=== PATIENT | male | born 1940 | race Caucasian/White ===

== ENCOUNTER 2018-05-13 11:43 | Day surgery (SDC) | payer MEDICARE, OTHER, SELFPAY ==
--- NOTE | 2018-05-12 23:10 | CASEMGMT ---
Social Work Outpatient Surgery Summary: Received call from patient's daughter and reported LUIS ANGELDominick ([phone]) requesting a call back for assistance with aftercare needs for patient. Spoke with daughter via phone. Per daughter patient broke an ankle, and needs to have surgical repair. Daughter reports since injury and waiting for surgery, the patient has not been listening properly at home, up walking and driving. Daughter reports patient normally lives alone, is independent in self care, and active. Daughter reports patient has been a bit more confused lately, though never diagnosed with dementia. Daughter reports patient is to be nonweightbearing after surgery, and based on patient's inability to adhere to restrictions prior to surgery, the daughter expresses concerns about patient being at home alone after surgery. Daughter reports she and patient's other daughter both have to work, are unable to be at home with patient 24 hours a day. Daughter reports to have the patient's best interest at heart and has been trying to be proactive for this patient. Daughter reports has made some calls to local SNF's, since 24 hour care is provided, and would prefer to go to [facility] if SNF is needed. Daughter indicating an openness to options available for this patient. Spoke with Amparo in the rehab department at [facility], reviewed call with daughter and need for some level therapy after surgery, patient non weightbearing status and that patient has reportedly been independent at home prior to injury and even after injury has wanted to continue as before. Received call back from Amparo and patient could be accepted straight from PACU to rehab unit. Spoke with daughter again. Reviewed alternative option of acute rehab level of care versus SNF level of care after surgery. Daughter reports patient is a social person, likes to be active, so maybe the three hours of therapy a day would be a good thing for patient. Daughter did have some questions about the rehab unit, so referred the daughter to Amparo before final decision made about which level of care. Daughter also plans to talk with patient about patient's wishes, including patient in decision making. Received call from Amparo who reports the daughter was able to call and get questions answered. Patient and daughter deciding to go with rehab level of care for now. Updated Sherri Vogel in PACU of plan for this patient. Informed of what is needed for discharge. Called [facility] and left message for surgical oncologist of plan made today (per the daughters the physician office had told the daughter to contact hospital social work about making a plan after surgery). Left message as to what the doctor will need to write for discharge to rehab. Plan: Acute rehab after surgery for therapy in helping patient transition to nonweightbearing safely; promote independence as prior to injury. -JAVIER Pulliam, PATTERN CHANGER
[2018-05-13 12:15] VITALS: BP 150/75; PULSE 73; RESP 18; TEMP 36.9; O2SAT 100; BMI 27.1
[2018-05-13 12:17] LABS: Hematocrit 42.6 % (40-54); Hemoglobin 14.3 g/dl (13.0-16.5); Mean Corp Hgb Conc 33.6 g/gl (32-36); Mean Corpuscular Hgb 30.2 pg (27.0-32.0); Mean Corpuscular Volume 89.9 fL (80-94); Mean Platelet Vol. 10.6 fl (6.2-12.0); Platelet Count 199 K/mm3 (150-450); RBC Distribution Width CV 12.3 % (11.6-14.6); Red Blood Count 4.74 M/mm3 (4.6-6.2); White Blood Count 7.6 K/mm3 (4.4-11.0)
[2018-05-13 12:18] LABS: Scan Indicated on CBC? Y/N NO
[2018-05-13 12:41] LABS: Bedside Glucose 133 mg/dL (70-110)
[2018-05-13 12:55] LABS: Anion Gap 8 (5-15); BUN 16 mg/dL (7-18); BUN/Creat Ratio 16.6 RATIO (10-20); Calcium,Total 8.5 mg/dL (8.5-10.1); Chloride 105 mmol/L (98-107); Creatinine, Serum 0.96 mg/dL (0.70-1.30); EST Glomerular Filtration Rate 80 mL/min (>60); Est Glom Filt Rate - Afr Amer 97 mL/min (>60); Estimated Creatinine Clearance 60.25 ml/min; Glucose 131 mg/dL (74-106); Potassium 4.3 mmol/L (3.5-5.1); Sodium Level 141 mmol/L (136-145); Thyroid Stim Hormone (TSH) 1.92 uIU/mL (0.358-3.74)
[2018-05-13] MEDS: Cefazolin 2 GM in 0.9% Normal Saline 100 ML IV (13:35)
--- NOTE | 2018-05-13 14:35 | RAD_ITS ---
STUDY: X-RAY - RIGHT ANKLE REASON FOR EXAM: Male, 77 years old. ORIF right ankle TECHNIQUE: 3 view(s) of the ankle in multiple obliquities obtained intraoperatively are presented for interpretation. COMPARISON: None. FINDINGS: Plate and screw fixation of the distal fibular fracture in excellent anatomic alignment. Surgical construct intact. Normal distal tibia. Normal ankle joint. RAD/Ankle 2 Views IMPRESSION: Excellent anatomic alignment. Correlate with operative report. Electronically Signed: Eduard Becker, at 15:35 EST Tel , Service support ,
[2018-05-13 16:05] VITALS: BP 150/75; BP 151/83; PULSE 83; RESP 16; TEMP 36.1; O2SAT 93
--- NOTE | 2018-05-13 16:12 | OP.PN_ITS ---
Immediate Post-Op Note Date of Procedure: 05/13/18 Primary Surgeon/Physician: Cornelia Salazar DPM launching pad mechanic: Anthony Nielsen Pre-Operative Diagnosis: R ankle distal fibula fracture Post-Operative Diagnosis: same Surgery/Procedure Performed:: ORIF R distal fibula Description of Surgical Findings:: see dictation Estimated Blood Loss: minimal Specimen's removed: none Drains: none Type of Anesthesia:: General/Regional - Admit VTE Documentation VTE Present on Admission: No VTE Mechan Device Prophylaxis: SCD's, Knee High KATRINA Hose VTE Pharm Prophylaxis ordered?: Yes
[2018-05-13 16:15] VITALS: BP 140/82; BP 150/75; PULSE 79; RESP 16; O2SAT 93
--- NOTE | 2018-05-13 16:25 | RAD_ITS ---
STUDY: X-RAY - RIGHT ANKLE REASON FOR EXAM: Male, 77 years old. Postop. TECHNIQUE: 4 view(s) of the ankle. COMPARISON: Right ankle, May 13, 2018. FINDINGS: Normal visualized distal tibia. Again seen is metallic plate and screws along the lateral aspect of the fibula. The fracture is in normal alignment. Normal tibiotalar articulation and ankle mortise. Normal visualized talus and calcaneus. The visualized subtalar, talonavicular, calcaneocuboid and tarsal articulations are normal. Minimal soft tissue swelling. A semiopaque splint is seen along the posterior leg and plantar aspect of the foot. RAD/Ankle min 3 Views IMPRESSION: Status post internal fixation of a distal fibular fracture. Electronically Signed: Deepak Martinez DO at 16:48 EST Tel [phone], Service support ,
[2018-05-13 16:30] VITALS: BP 139/68; BP 150/75; PULSE 80; RESP 16; O2SAT 95
[2018-05-13 16:30] LABS: Bedside Glucose 132 mg/dL (70-110)
[2018-05-13 16:36] VITALS: BP 136/77; BP 150/75; PULSE 76; RESP 16; TEMP 36.2; O2SAT 93
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
== END 2018-05-13 17:00 ==
LOC: SDC 11:47 → AC 11:48
PROVIDERS: Anesthesiology; Family Provider Nurse Practitioner Family; PCP Nurse Practitioner Family; Referring Provider Podiatrist Foot & Ankle Surgery; Visit Provider Podiatrist Foot & Ankle Surgery
PROC: (CPT 27792; principal; 2018-05-13 14:15)
DX: S82.831A Other fracture of upper and lower end of right fibula, initial encounter for closed fracture (principal); V00.141A Fall from scooter (nonmotorized), initial encounter; Y93.I9 Activity, other involving external motion; I11.9 Hypertensive heart disease without heart failure; E11.9 Type 2 diabetes mellitus without complications; E03.9 Hypothyroidism, unspecified; Z95.5 Presence of coronary angioplasty implant and graft; Z79.84 Long term (current) use of oral hypoglycemic drugs; Z79.82 Long term (current) use of aspirin; Z79.899 Other long term (current) drug therapy
CPT/HCPCS: 27792; 64445; 36415; 73600; 73610; 76000; 80048; 82962; 84443; 85027; C1713; J7120

== ENCOUNTER 2018-05-13 17:00 | Inpatient (IN) | payer MEDICARE, OTHER, SELFPAY ==
[2018-05-13 17:00] VITALS: BP 147/81; PULSE 80; RESP 14; TEMP 36.8; O2SAT 89
[2018-05-13 17:15] VITALS: O2SAT 94
--- NOTE | 2018-05-13 17:20 | NURSING ---
Daughter at bedside and patient resting comfortably in bed, circulation check wnl to right foot and toes moveable and pink.
[2018-05-13 17:31] VITALS: BMI 25.5
[2018-05-13 17:45] LABS: Bedside Glucose 140 mg/dL (70-110)
[2018-05-13 18:00] VITALS: BP 156/90; PULSE 73; RESP 18; O2SAT 95
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
--- NOTE | 2018-05-13 19:34 | NURSING ---
Patient and daughter aware that he is a fall risk and must ask for staff assist and verbalized understanding to call rea use.
[2018-05-13 20:00] VITALS: BP 148/87; PULSE 73; RESP 18; TEMP 36.9; O2SAT 93
[2018-05-13] MEDS: oxyCODONE 5 MG Tablet PO (20:44)
[2018-05-13] MEDS: Senna/Docusate Sodium 1 Tablet 2 TABLET PO (20:46)
[2018-05-13] MEDS: Atorvastatin Calcium 20 MG Tablet PO (21:11)
[2018-05-13 21:31] LABS: Bedside Glucose 151 mg/dL (70-110)
[2018-05-13] MEDS: Carvedilol 6.25 MG Tablet PO (22:03)
[2018-05-14] VITALS (7 sets, daily range): BP systolic 138–154; BP diastolic 65–86; PULSE 70–95; RESP 16–18; TEMP 36.7–37.3; O2SAT 92–95
[2018-05-14] MEDS: oxyCODONE 5 MG Tablet PO ×3 (02:44→21:11)
[2018-05-14 06:01] LABS: Absolute Lymphocyte Count 0.83 X10^3/ul (0.83-4.51); Basophil# 0.01 X10^3/uL; Basophil% 0.1 % (0-1); Eosinophil# 0.02 X10^3/uL; Eosinophils% 0.2 % (0-5); Hematocrit 39.7 % (40-54); Hemoglobin 13.6 g/dl (13.0-16.5); Lymphocyte # 0.83 X10^3/ul (4.0); Lymphocyte % 7.7 % (19-41); Mean Corp Hgb Conc 34.3 g/gl (32-36); Mean Corpuscular Hgb 30.2 pg (27.0-32.0); Mean Corpuscular Volume 88.2 fL (80-94); Mean Platelet Vol. 10.8 fl (6.2-12.0); Monocyte% 8.3 % (0-10); Neutrophil # 9.02 X10^3/uL (2.7-7.7); Neutrophil % 83.5 % (47-70); Platelet Count 186 K/mm3 (150-450); RBC Distribution Width SD 38.4 fl (35.1-43.9); White Blood Count 10.8 K/mm3 (4.4-11.0)
[2018-05-14 06:08] LABS: POSITIVE COUNT NO; POSITIVE DIFFERENTIAL NO; POSITIVE MORPHOLOGY NO
[2018-05-14 06:39] LABS: AST(SGOT) 17 U/L (15-37); Alanine Aminotransfer ALT/SGPT 17 U/L (16-61); Albumin, Serum 2.9 g/dL (3.2-5.0); Alkaline Phosphatase 69 U/L (45-117); Anion Gap 10 (5-15); BUN 13 mg/dL (7-18); BUN/Creat Ratio 16.9 RATIO (10-20); Calcium,Total 8.2 mg/dL (8.5-10.1); Chloride 101 mmol/L (98-107); Creatinine, Serum 0.77 mg/dL (0.70-1.30); EST Glomerular Filtration Rate 104 mL/min (>60); Est Glom Filt Rate - Afr Amer 126 mL/min (>60); Estimated Creatinine Clearance 59.85 ml/min; Glucose 175 mg/dL (74-106); Potassium 4.1 mmol/L (3.5-5.1); Protein, Total 5.9 g/dL (6.4-8.2); Sodium Level 136 mmol/L (136-145)
[2018-05-14] MEDS: Levothyroxine 75 MCG Tablet PO (06:43)
[2018-05-14] MEDS: Enoxaparin 40 MG/0.4 ML Syringe SC (06:43)
[2018-05-14 07:11] LABS: Bedside Glucose 155 mg/dL (70-110)
[2018-05-14] MEDS: Lisinopril 2.5 MG Tablet PO (07:44)
[2018-05-14] MEDS: Calcium Carb/Vitamin D 1 TABLET Tablet PO ×2 (07:45→17:24)
[2018-05-14] MEDS: Aspirin 81 MG TAB.CHEW PO (07:45)
[2018-05-14] MEDS: Carvedilol 6.25 MG Tablet PO ×2 (07:45→21:18)
[2018-05-14] MEDS: Senna/Docusate Sodium 1 Tablet 2 TABLET PO ×2 (07:45→21:18)
[2018-05-14] MEDS: Cyanocobalamin 500 MCG Tablet 1000 MCG PO (07:45)
[2018-05-14 12:05] LABS: Bedside Glucose 184 mg/dL (70-110)
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
--- NOTE | 2018-05-14 13:43 | PCM.RU.PYE ---
Admission Information Status Changes from Prescreening?: No changes Identified Actual Problem List:: Falls, Skin Intergrity, Pain, ALteration in Cmfrt, Mobility Impaired, Diabetes, Hyperglycemia, BP, Hypertension, Ineffect.D/C Plan r/t Psy Potential Problem List:: DVT, Bleeding, Infection, UTI, Aspiration, Falls, Skin Integrity, Depression Risk of Complications DVT: LMWH, KATRINA Hose, Sequential Compression Device Bleeding: Monitor Lab Values, Nursing to Teach Precautions for anti-coagulation therapy., Wound, if applicable, to be assessed every shift., Stroke patients assessed for lethargy or change in status. Infection: Clinical Staff to Monitor for S/S of infection:, S/S of infection include fever, redness, warmth, etc. Urinary Tract Infection: Monitor for frequency, burning, discomfort, or incontinence., Nursing will obtain urine sample for urinalysis and C&S when ordered. Aspiration: Clinical staff will monitor for coughing, drooling, congestion., Speech will evaluate swallowing and dsyphasia., Nursing will monitor patient swallowing during meals. Falls: Patient will be evaluated for Fall Precautions, Patient will be placed on Fall Precautions as indicated per protocol. Skin Breakdown: Nursing will assess skin daily using assessment tool., Nursing will place on Skin Breakdown Precautions as indicated. Pain: Clinical staff will assess patient's pain level per protocol., Medications will be given, if needed, and the pain level reassessed., Other methods: Massage, distraction, decrease stimulus, etc. used PRN. Plan of Care Patient requires physician specializing in physical medicine and rehab oversight to provide close medical supervision of rehab issues including: Pain Management, Sleep Problems, Bowel and Bladder, Medical and co-morbidity Management, DVT prophylaxis, Rehabilitation Leadership, Coordination of treatment team Patient needs Physical Therapy: For a minimum of 1 hour, At least 5 out of 7 days Patient needs Physical Therapy to improve:: Mobility, Mobility, Mobility, Strengthening, Transfers, Stretching, ROM, Endurance, Stairs, Gait, Balance Patient needs Occupational Therapy: For a minimum of 1 hour, At least 5 out of 7 days Patient needs Occupational Therapy to improve ADL's incl.: Eating, Grooming, Bathing, Dressing, Toileting, Toilet transfers, Community Reintegration, Higher functioning activities, Household tasks, Adaptive Equipment, Splinting, Other activities as determined Patient requires 24/ Rehabilitation Nursing for: Pain Issues, Identifying and preventing risk factors, Monitoring and reporting current medical conditions, Assisting with ambulation, transfer, and all ADL's, Teaching patients about disease process and medications, Family teaching, Providing safe environment, Bowel and Bladder Issues, Skin integrity, Medication Management Patient needs International Account Manager/ Case Management for: Discharge Planning, Arranging Home Equipment or Services, Family Interventions Patient needs Dietary and Nutrition Services for: Adequate Nutrition, Nutritional Supplements, Nutritional Education Goals Patient will remain: free from falls, or injury at time of discharge. Patient will perform bed mobility at: MOD I level of assist. Patient will complete transfers from bed to chair at: MOD I level of assist. Patient will ambulate: 100 feet, with MOD I assist, with LRD Patient will complete upper body dressing at: MOD I level of assist. Patient will complete lower body dressing at: MOD I level of assist. Patient will complete toileting at: MOD I level of assist. Patient will perform bathing at: MOD I level of assist. Patient will complete grooming at: MOD I level of assist. Patient will complete home management skills at: MOD I level of assist. Patient will achieve: 12 stairs, at MOD I assist Patient will have pain level of: of 3 or less Patient's skin will: remain intact, free from infection. Patient will receive: adequate nutrition. Discharge Planning Pt Prognosis for Sig. Practical Improv. w/in Reasonable Time: Good Anticipated D/C Destination: Home with Outpt Therapy Was Preadmission Assessment Accurate?: Yes
[2018-05-14 17:15] LABS: Bedside Glucose 139 mg/dL (70-110)
[2018-05-14] MEDS: Tamsulosin HCl 0.4 MG Capsule PO (17:25)
[2018-05-14] MEDS: Atorvastatin Calcium 20 MG Tablet PO (21:18)
[2018-05-14 21:50] LABS: Bedside Glucose 135 mg/dL (70-110)
[2018-05-15] MEDS: oxyCODONE 5 MG Tablet PO ×4 (03:14→20:53)
[2018-05-15] MEDS: Enoxaparin 40 MG/0.4 ML Syringe SC (05:43)
[2018-05-15] MEDS: Levothyroxine 75 MCG Tablet PO (05:43)
[2018-05-15 06:40] LABS: Bedside Glucose 139 mg/dL (70-110)
[2018-05-15 07:10] VITALS: O2SAT 91
[2018-05-15 07:53] VITALS: BP 142/76; PULSE 89; RESP 18; TEMP 36.7; O2SAT 92
[2018-05-15] MEDS: Lisinopril 2.5 MG Tablet PO (08:16)
[2018-05-15] MEDS: Aspirin 81 MG TAB.CHEW PO (08:16)
[2018-05-15] MEDS: Loratadine 10 MG Tablet PO (08:17)
[2018-05-15] MEDS: Carvedilol 6.25 MG Tablet PO ×2 (08:17→20:54)
[2018-05-15] MEDS: Senna/Docusate Sodium 1 Tablet 2 TABLET PO ×2 (08:17→20:54)
[2018-05-15] MEDS: Cyanocobalamin 500 MCG Tablet 1000 MCG PO (08:17)
[2018-05-15] MEDS: Calcium Carb/Vitamin D 1 TABLET Tablet PO ×2 (08:18→17:13)
--- NOTE | 2018-05-15 10:45 | PN.NEURO_ITS ---
Subjective: No new complaints. He remains somewhat constipated but his appetite is okay. Pain is controlled. Slept better last night. - Physical Exam General: Alert, Oriented x3, Cooperative, No apparent distress Extremities: No Calf Tenderness Neurological: Cranial nerves II-XII grossly intact Psych/Mental Status: Normal Affect Vital Signs Temp Pulse Resp BP Pulse Ox 36.7 C 89 18 142/76 H 92 05/15/18 07:53 05/15/18 07:53 05/15/18 07:53 05/15/18 07:53 05/15/18 07:53 Oxygen Flow Rate (L/min) 3 Oxygen Delivery Method Room Air Weight: 76 kg Body Mass Index (BMI) 25.5 Finger Stick Blood Glucose 132 Intake and Output for Last 24 Hours 05/13/18 05/14/18 05/15/18 23:59 23:59 23:59 Intake Total 200 / 200 680 / 680 Output Total 300 / 300 Balance 200 / 200 380 / 380 POC Glucose 05/15/18 05/14/18 05/14/18 06:31 21:28 17:10 POC Glucose 139 H 135 H 139 H 05/14/18 11:59 POC Glucose 184 H Current Medications Generic Name Dose Route Start Last Admin Trade Name Freq PRN Reason Stop Dose Admin Aspirin 81 mg 05/14/18 08:00 05/15/18 08:16 Aspirin, Baby PO 81 mg DAILY@0800 CRYSTAL Administration Atorvastatin Calcium 20 mg 05/13/18 22:00 05/14/18 21:18 Lipitor PO 20 mg QHS CRYSTAL Administration Bisacodyl 10 mg 05/13/18 17:45 Dulcolax RECTAL .PRN X 1 PRN Constipation Calcium/Vitamin D 1 tablet 05/14/18 08:00 05/15/18 08:18 Os-Curt 500mg + D PO 1 tablet BIDCM CRYSTAL Administration Carvedilol 6.25 mg 05/13/18 22:00 05/15/18 08:17 Coreg PO 6.25 mg BID CRYSTAL Administration Cyanocobalamin 1,000 mcg 05/14/18 10:00 05/15/18 08:17 Vitamin B12 PO 1,000 mcg DAILY CRYSTAL Administration Enoxaparin Sodium 40 mg 05/14/18 06:00 05/15/18 05:43 Lovenox SC 40 mg DAILY@0600 CRYSTAL Administration Levothyroxine Sodium 75 mcg 05/14/18 06:00 05/15/18 05:43 Synthroid PO 75 mcg DAILY@0600 CRYSTAL Administration Lisinopril 2.5 mg 05/14/18 10:00 05/15/18 08:16 Zestril PO 2.5 mg DAILY CRYSTAL Administration Loratadine 10 mg 05/15/18 10:00 05/15/18 08:17 Claritin PO 10 mg DAILY CRYSTAL Administration Magnesium Hydroxide 30 ml 05/13/18 17:45 Milk Of Magnesia PO .PRN X 1 PRN Constipation Metformin HCl 500 mg 05/14/18 08:00 05/15/18 08:16 Glucophage PO 500 mg BIDCM CRYSTAL Administration Nitroglycerin 0.4 mg 05/13/18 19:19 Nitrostat SUBLINGUAL Q5M PRN Chest Pain Oxycodone HCl 5 - 10 mg 05/15/18 09:00 05/15/18 09:18 Oxyir PO 10 mg Q4H PRN PRN Administration PAIN Senna/Docusate Sodium 2 tablet 05/13/18 22:00 05/15/18 08:17 Senokot-S, Samanta-Colace PO 2 tablet BID CRYSTAL Administration Tamsulosin HCl 0.4 mg 05/14/18 17:30 05/14/18 17:25 Flomax PO 0.4 mg DAILY@1730 CRYSTAL Administration Medical Necessity - Tobacco Use Smoking Status: Never smoker Assessment/Plan Debility status post right ankle fracture status post open reduction internal fixation performed here at [facility] 05/13/18. Complicated by diabetes, hypertension and coronary artery disease Plan: Physical therapy for gait and balance Occupational Therapy for ADLs Bowel protocol PRN analgesics Continue antihypertensives on blood pressure: Controlled Diabetes: Controlled VT prophylaxis
--- NOTE | 2018-05-15 11:51 | PCM.PN.ORT ---
Subjective: Pt seen while in Physical therapy. States he feels well. Has minor pain in RLE. Feels therapy is helpful and keeping him safe. Objective: Pt examined during therapy. Short leg cast is in place and appears clean and dry. Further exam deferred 2/2 PT - Physical Exam General: Alert, Cooperative Vital Signs Temp Pulse Resp BP Pulse Ox 98.0 F 89 18 142/76 H 92 05/15/18 07:53 05/15/18 07:53 05/15/18 07:53 05/15/18 07:53 05/15/18 07:53 Oxygen Flow Rate (L/min) 3 Oxygen Delivery Method Room Air Weight: 167 lb 8.821 oz Body Mass Index (BMI) 25.5 Finger Stick Blood Glucose 132 Intake and Output for Last 24 Hours 05/13/18 05/14/18 05/15/18 23:59 23:59 23:59 Intake Total 200 / 200 680 / 680 Output Total 300 / 300 Balance 200 / 200 380 / 380 POC Glucose 05/15/18 05/14/18 05/14/18 06:31 21:28 17:10 POC Glucose 139 H 135 H 139 H 05/14/18 11:59 POC Glucose 184 H Medical Necessity - Tobacco Use Smoking Status: Never smoker Assessment/Plan 77 yo M s/p ORIF R distal fibula fracture POD #2, DOS 05/13/18. -PT evaluated during physical therapy -feels well -Continue NWB RLE and PT as directed. -Will revaluate next week to check incision line or sooner if needed, I will see him in-house -Meds per medicine team -Please call with questions or concerns.
[2018-05-15 13:06] LABS: Bedside Glucose 223 mg/dL (70-110)
--- NOTE | 2018-05-15 13:51 | CASEMGMT ---
Reviewed and approval attached social work student documentation. ZACHARY MedranoW, GENERAL FOREMAN
[2018-05-15 16:36] LABS: Bedside Glucose 173 mg/dL (70-110)
[2018-05-15] MEDS: Tamsulosin HCl 0.4 MG Capsule PO (17:14)
[2018-05-15 20:04] VITALS: BP 143/75; PULSE 92; RESP 18; TEMP 36.6; O2SAT 96
[2018-05-15] MEDS: Atorvastatin Calcium 20 MG Tablet PO (20:54)
[2018-05-15 21:46] LABS: Bedside Glucose 164 mg/dL (70-110)
[2018-05-16] MEDS: oxyCODONE 5 MG Tablet PO ×5 (01:10→20:50)
[2018-05-16] MEDS: Enoxaparin 40 MG/0.4 ML Syringe SC (05:54)
[2018-05-16] MEDS: Levothyroxine 75 MCG Tablet PO (05:54)
[2018-05-16 06:41] LABS: Bedside Glucose 141 mg/dL (70-110)
[2018-05-16 07:16] VITALS: BP 146/71; PULSE 76; RESP 18; TEMP 36.9; O2SAT 93
[2018-05-16] MEDS: Cyanocobalamin 500 MCG Tablet 1000 MCG PO (09:18)
[2018-05-16] MEDS: Senna/Docusate Sodium 1 Tablet 2 TABLET PO ×2 (09:18→20:51)
[2018-05-16] MEDS: Calcium Carb/Vitamin D 1 TABLET Tablet PO ×2 (09:19→17:05)
[2018-05-16] MEDS: Lisinopril 2.5 MG Tablet PO (09:19)
[2018-05-16] MEDS: Loratadine 10 MG Tablet PO (09:19)
[2018-05-16] MEDS: Aspirin 81 MG TAB.CHEW PO (09:19)
[2018-05-16] MEDS: Carvedilol 6.25 MG Tablet PO ×2 (09:19→20:51)
[2018-05-16 09:30] VITALS: O2SAT 93
[2018-05-16] MEDS: Magnesium Hydroxide 30 ML UDC PO (09:32)
--- NOTE | 2018-05-16 12:10 | NURSING ---
Per. Dr. Solitario ok to dc accu checks.
[2018-05-16 12:11] LABS: Bedside Glucose 158 mg/dL (70-110)
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
--- NOTE | 2018-05-16 12:25 | PN_ITS ---
Subjective: Chief complaint: Follow-up after consultation for medical management after admission to inpatient rehabilitation. Patient seen and examined. No acute events overnight. He mentioned that his right foot pain is manageable at this time. No other complaints. His vital signs are stable. - Physical Exam General: Alert, Oriented x3, Cooperative, No apparent distress HEENT: Atraumatic, PERRLA, EOMI, Normocephalic Oral: Moist Mucosa, No Gingival or Mucosal Lesions/ Ulcerations Neck: Supple, No JVD, Negative Carotid Bruits, Trachea Midline, Thyroid Normal Size and Texture Lungs: Clear to auscultation, Normal air movement, No rhonchi, No wheeze, No rales Cardiovascular: Regular rate, Regular Rhythm, Normal S1, Normal S2 Abdomen: Bowel Sounds Present, Soft, Non Tender, Non-Distended, No Hepato- splenomegaly Extremities: No clubbing, No cyanosis, No edema Skin: No rashes, Ulcer/ Wound Lymphatic: No Cervical, Supraclavicular, or Inguinal Adenopathy Neurological: Cranial nerves II-XII grossly intact, Motor Exam 5/5 strength throughout Psych/Mental Status: Normal Affect, Appropriate, Alert and oriented to time, place, person, mood and affect Vital Signs Temp Pulse Resp BP Pulse Ox 98.4 F 76 18 146/71 H 93 05/16/18 07:16 05/16/18 07:16 05/16/18 07:16 05/16/18 07:16 05/16/18 09:30 Oxygen Flow Rate (L/min) 3 Oxygen Delivery Method Room Air Weight: 167 lb 8.821 oz Body Mass Index (BMI) 25.5 Finger Stick Blood Glucose 132 Intake and Output for Last 24 Hours 05/14/18 05/15/18 05/16/18 23:59 23:59 23:59 Intake Total 680 / 680 240 / 240 Output Total 300 / 300 Balance 380 / 380 240 / 240 POC Glucose 05/16/18 05/16/18 05/15/18 12:05 06:36 21:42 POC Glucose 158 H 141 H 164 H 05/15/18 05/15/18 16:32 12:51 POC Glucose 173 H 223 H Medical Necessity - Tobacco Use Smoking Status: Never smoker Assessment/Plan This is a 77 years old male patient admitted to inpatient rehab unit after he suffered a right distal fibular fracture due to trauma and I am seeing this patient in consultation for medical management. #1 acute traumatic right distal fibular fracture: Status post open reduction and internal fixation. He is on OxyIR as needed for pain, pain is well controlled. His vital signs are stable. His routine blood work 2 days ago was unremarkable. He is doing well with physical therapy. Orthopedic surgery is following. Plan for OT PT according to rehab team. #2 CAD status post stents: Stable, no acute issues. Continue aspirin, statins, Coreg and lisinopril. #3 type 2 diabetes mellitus: Blood sugar has been stable, under control. He is only on metformin. Plan to continue same treatment, DC Accu-Cheks. #4 hypertension: Blood pressure stable, continue Coreg and lisinopril. #5 hypothyroidism: Continue levothyroxine. TSH was normal 3 days ago. #6 benign prostatic hypertrophy: Continue Flomax. #7 DVT prophylaxis: Subcu Lovenox. This note was generated with [employer] dictation software. It may contain incorrect words, spelling, and punctuation that were not noted in checking the note before signing. Code Visit Inpatient E&M: 28295 Subs Hosp L2
[2018-05-16] MEDS: Tamsulosin HCl 0.4 MG Capsule PO (17:05)
[2018-05-16 20:31] VITALS: BP 139/69; PULSE 84; RESP 16; TEMP 36.7; O2SAT 94
[2018-05-16] MEDS: Atorvastatin Calcium 20 MG Tablet PO (20:51)
[2018-05-17] MEDS: Enoxaparin 40 MG/0.4 ML Syringe SC (05:39)
[2018-05-17] MEDS: oxyCODONE 5 MG Tablet PO ×2 (05:43→20:27)
[2018-05-17] MEDS: Levothyroxine 75 MCG Tablet PO (05:46)
[2018-05-17 07:38] VITALS: BP 142/87; PULSE 79; RESP 18; TEMP 37.1; O2SAT 93
[2018-05-17] MEDS: Senna/Docusate Sodium 1 Tablet 2 TABLET PO ×2 (09:16→21:59)
[2018-05-17] MEDS: Cyanocobalamin 500 MCG Tablet 1000 MCG PO (09:16)
[2018-05-17] MEDS: Lisinopril 2.5 MG Tablet PO (09:16)
[2018-05-17] MEDS: Loratadine 10 MG Tablet PO (09:17)
[2018-05-17] MEDS: Aspirin 81 MG TAB.CHEW PO (09:17)
[2018-05-17] MEDS: Calcium Carb/Vitamin D 1 TABLET Tablet PO ×2 (09:17→19:02)
[2018-05-17] MEDS: Carvedilol 6.25 MG Tablet PO ×2 (09:17→22:00)
[2018-05-17] MEDS: Tamsulosin HCl 0.4 MG Capsule PO (19:02)
[2018-05-17 19:59] VITALS: BP 137/81; PULSE 80; RESP 16; TEMP 37.1; O2SAT 96
[2018-05-17] MEDS: Atorvastatin Calcium 20 MG Tablet PO (22:00)
[2018-05-18] MEDS: Levothyroxine 75 MCG Tablet PO (06:19)
[2018-05-18] MEDS: Enoxaparin 40 MG/0.4 ML Syringe SC (06:19)
[2018-05-18 07:00] VITALS: BP 132/78; PULSE 83; RESP 16; TEMP 36.9; O2SAT 96
[2018-05-18] MEDS: Lisinopril 2.5 MG Tablet PO (09:14)
[2018-05-18] MEDS: Cyanocobalamin 500 MCG Tablet 1000 MCG PO (09:14)
[2018-05-18] MEDS: Carvedilol 6.25 MG Tablet PO ×2 (09:14→20:38)
[2018-05-18] MEDS: Aspirin 81 MG TAB.CHEW PO (09:14)
[2018-05-18] MEDS: Calcium Carb/Vitamin D 1 TABLET Tablet PO ×2 (09:14→17:16)
[2018-05-18] MEDS: Senna/Docusate Sodium 1 Tablet 2 TABLET PO ×2 (09:15→20:39)
[2018-05-18] MEDS: Loratadine 10 MG Tablet PO (09:15)
[2018-05-18] MEDS: oxyCODONE 5 MG Tablet PO ×2 (09:19→20:39)
--- NOTE | 2018-05-18 09:43 | NURSING ---
This RN walked pt 1 lap in hallway and back to room, pt tolerated well.
--- NOTE | 2018-05-18 13:45 | PN_ITS ---
Subjective: Chief complaint: Follow-up after consultation for medical management after admission to inpatient rehabilitation. Patient seen and examined. No acute events overnight. He is doing fine. His only complaint is constipation although he has been on scheduled Senokot and as needed milk of mag. Nursing staff reported that he has a bowel movement this morning. He complained of sinus congestion and he has been on Claritin. Right foot pain is well controlled. His vital signs are stable. - Physical Exam General: Alert, Oriented x3, Cooperative, No apparent distress HEENT: Atraumatic, PERRLA, EOMI, Normocephalic Oral: Moist Mucosa, No Gingival or Mucosal Lesions/ Ulcerations Neck: Supple, No JVD, Negative Carotid Bruits, Trachea Midline, Thyroid Normal Size and Texture Lungs: Clear to auscultation, Normal air movement, No rhonchi, No wheeze, No rales Cardiovascular: Regular rate, Regular Rhythm, Normal S1, Normal S2, PMI Normal Abdomen: Bowel Sounds Present, Soft, Non Tender, Non-Distended, No Hepato- splenomegaly Extremities: No clubbing, No cyanosis, No edema Skin: No rashes, No breakdown Lymphatic: No Cervical, Supraclavicular, or Inguinal Adenopathy Neurological: Cranial nerves II-XII grossly intact, Neuro grossly intact Psych/Mental Status: Normal Affect, Appropriate Vital Signs Temp Pulse Resp BP Pulse Ox 98.4 F 83 16 132/78 H 96 05/18/18 07:00 05/18/18 07:00 05/18/18 07:00 05/18/18 07:00 05/18/18 07:00 Oxygen Flow Rate (L/min) 3 Oxygen Delivery Method Room Air Weight: 167 lb 8.821 oz Body Mass Index (BMI) 25.5 Finger Stick Blood Glucose 132 Intake and Output for Last 24 Hours 05/16/18 05/17/18 05/18/18 23:59 23:59 23:59 Intake Total 480 / 480 480 / 480 480 / 480 Balance 480 / 480 480 / 480 480 / 480 Medical Necessity - Tobacco Use Smoking Status: Never smoker Assessment/Plan This is a 77 years old male patient admitted to inpatient rehab unit after he suffered a right distal fibular fracture due to trauma and I am seeing this patient in consultation for medical management. #1 acute traumatic right distal fibular fracture: Status post open reduction and internal fixation. He is on OxyIR as needed for pain, pain is well controlled. His vital signs remained stable. He is doing well with physical therapy. Orthopedic surgery is following. Plan for OT PT according to rehab team. #2 CAD status post stents: Stable, no acute issues. Continue aspirin, statins, Coreg and lisinopril. #3 type 2 diabetes mellitus: Blood sugar has been stable, under control. He is only on metformin. #4 hypertension: Blood pressure stable, continue Coreg and lisinopril. #5 hypothyroidism: Continue levothyroxine. TSH was normal. #6 benign prostatic hypertrophy: Continue Flomax. #7 DVT prophylaxis: Subcu Lovenox. This note was generated with [employer] dictation software. It may contain incorrect words, spelling, and punctuation that were not noted in checking the note before signing. Code Visit Inpatient E&M: 69075 Subs Hosp L2
[2018-05-18] MEDS: Tamsulosin HCl 0.4 MG Capsule PO (17:16)
[2018-05-18] MEDS: Atorvastatin Calcium 20 MG Tablet PO (20:38)
[2018-05-18 20:48] VITALS: BP 131/75; PULSE 85; RESP 18; TEMP 36.8; O2SAT 93
--- NOTE | 2018-05-19 05:04 | NURSING ---
REVIEWED AND AGREE WITH WELDING EQUIPMENT REPAIRER SUPERVISOR'S FIM AND HANDOFF CHARTING.
[2018-05-19] MEDS: oxyCODONE 5 MG Tablet PO ×2 (06:22→11:49)
[2018-05-19] MEDS: Levothyroxine 75 MCG Tablet PO (06:23)
[2018-05-19] MEDS: Enoxaparin 40 MG/0.4 ML Syringe SC (06:23)
[2018-05-19 07:15] VITALS: BP 138/74; PULSE 82; RESP 16; TEMP 36.4; O2SAT 94
[2018-05-19] MEDS: Loratadine 10 MG Tablet PO (08:01)
[2018-05-19] MEDS: Senna/Docusate Sodium 1 Tablet 2 TABLET PO ×2 (08:01→20:13)
[2018-05-19] MEDS: Aspirin 81 MG TAB.CHEW PO (08:01)
[2018-05-19] MEDS: Calcium Carb/Vitamin D 1 TABLET Tablet PO ×2 (08:01→17:02)
[2018-05-19] MEDS: Carvedilol 6.25 MG Tablet PO ×2 (08:01→20:14)
[2018-05-19] MEDS: Lisinopril 2.5 MG Tablet PO (08:02)
[2018-05-19] MEDS: Cyanocobalamin 500 MCG Tablet 1000 MCG PO (08:02)
--- NOTE | 2018-05-19 11:04 | NURSING ---
1000-orthopedic paged tufting machine operator single needle for cast care/incision orders per dr. montero request after team meeting. cast slightly snug around calf and some bruising noted to outer knee area. pt c/o some discomfort and tightness feeling. waiting to hear back
--- NOTE | 2018-05-19 11:20 | PN.NEURO_ITS ---
Subjective: No issues overnight. Care discussed with nursing staff. Staffed in team meeting. All questions were answered. With PT walked about 35 feet, NWB right foot, light hand, in/out of bed supervised level assist, steps not being addressed as has ramp at home. OT- ADLs- stand by assist but light hand for clothing. 74 yr CM with PMH HTN, HLD, DM, CAD s/p stents, hypothyroidism, BPH, recent traumatic right distal fibula fracture s/p ORIF by Dr. Metcalf on 05/13/18, admitted to [facility] on 05/13/18 for debility s/p recent traumatic right distal fibula fracture s/p ORIF, for > 3 hrs therapy daily with a goal of returning home at or near his prior level of functional independence. Patient complaints of some tightness on the right leg above the cast, has some reddish area. Will page Dr. Metcalf for further evaluation and recommendations. - Physical Exam General: Alert HEENT: Normocephalic Neck: Supple Lungs: Normal air movement Cardiovascular: Normal S1, Normal S2 Abdomen: Bowel Sounds Present Extremities: No cyanosis Neurological: Cranial nerves II-XII grossly intact, Neuro grossly intact, Motor Exam 5/5 strength throughout, Muscle tone normal, Sensory exam intact to light touch and pain, Coordination normal, - - Reflexes + B/L B/S/T/K/A Psych/Mental Status: Normal Affect Vital Signs Temp Pulse Resp BP Pulse Ox 97.6 F L 82 16 138/74 H 94 05/19/18 07:15 05/19/18 07:15 05/19/18 07:15 05/19/18 07:15 05/19/18 07:15 Oxygen Flow Rate (L/min) 3 Oxygen Delivery Method Room Air Weight: 76 kg Body Mass Index (BMI) 25.5 Finger Stick Blood Glucose 132 Intake and Output for Last 24 Hours 05/17/18 05/18/18 05/19/18 23:59 23:59 23:59 Intake Total 480 / 480 480 / 480 240 / 240 Balance 480 / 480 480 / 480 240 / 240 Medical Necessity - Tobacco Use Smoking Status: Never smoker Assessment/Plan 74 yr CM with PMH HTN, HLD, DM, CAD s/p stents, hypothyroidism, BPH, recent traumatic right distal fibula fracture s/p ORIF by Dr. Metcalf on 05/13/18, admitted to [facility] on 05/13/18 for debility s/p recent traumatic right distal fibula fracture s/p ORIF, for > 3 hrs therapy daily with a goal of returning home at or near his prior level of functional independence. Plan - PT for gait stability - OT for ADLs - Bowel protocol - Analgesics as needed - Right distal fibula fracture s/p ORIF- management and evaluation per orthopedic surgeon Dr. Metcalf's recommendations. Will have Dr. Metcalf reevaluate the patient since he has been complaining some tightness in the right leg above the cast. - HTN- on Lisinopril and Coreg - DM- on Metformin - HLD- on Lipitor - CAD s/p stents- on ASA and Nitrostat PRN - Hypothyroidism- on Levothyroxine - BPH- on Tamsulosin - GI/DVT prophylaxis- on Lovenox - Fall precautions - Further medical management per hospitalist recommendations
--- NOTE | 2018-05-19 12:36 | NURSING ---
dr barragan called in and orders to loosen splint and remmove some cast padding for pt comforts. will be in don at some point to obs incision and then will determine freq of surgical site checks. stated, normally i see weekly in my office
--- NOTE | 2018-05-19 12:38 | NURSING ---
vane wrap remmoved to outer layer and some upper cast padding remmoved to proximal end. pt reported that thinks that feels better but hoping to maybe have shorter cast on when comes in don will monitor. vane wrap reapplied and now able to get 2 finger breadths inside upper edge of soft cast.
--- NOTE | 2018-05-19 14:14 | CASEMGMT ---
Team meeting held. Patient present as well as patient daughter. Tentative discharge date set for 05/28/18 as this is when Medicare days are up. Patient has been approved 15 Medicare days with a discharge on or by 05/28/18. Patient and patient family expressing concern of patient discharging to home where patient will be alone at times. Patient and patient family requesting for referral to be made to the Transitional Care Unit - [facility] for further care and treatment until patient is more stable and able to be alone all the time at home. Patient to continue with further care and treatment on the Inpatient Rehab Unit. Patient to be re-teamed next week. Support given. Telephone call to [facility]. This social director making referral. Proposed discharge date: 05/28/18 PLAN: Discharge to the TCU skilled pending outcome of team meeting next week. ZACHARY MedranoW, HY[employer] PRESS SERVICER
[2018-05-19] MEDS: Tamsulosin HCl 0.4 MG Capsule PO (17:02)
[2018-05-19 18:58] VITALS: BP 146/76; PULSE 95; RESP 16; TEMP 37.1; O2SAT 96
[2018-05-19] MEDS: Atorvastatin Calcium 20 MG Tablet PO (20:14)
--- NOTE | 2018-05-19 21:06 | NURSING ---
Pt denies need for pain meds at this time and advised to alert staff if need arises during the night.
[2018-05-20] MEDS: Enoxaparin 40 MG/0.4 ML Syringe SC (06:44)
[2018-05-20] MEDS: Levothyroxine 75 MCG Tablet PO (06:44)
[2018-05-20] MEDS: oxyCODONE 5 MG Tablet PO (06:55)
[2018-05-20 07:02] VITALS: BP 143/72; PULSE 99; RESP 18; TEMP 36.6; O2SAT 96
[2018-05-20] MEDS: Calcium Carb/Vitamin D 1 TABLET Tablet PO ×2 (09:17→17:54)
[2018-05-20] MEDS: Aspirin 81 MG TAB.CHEW PO (09:18)
[2018-05-20] MEDS: Cyanocobalamin 500 MCG Tablet 1000 MCG PO (09:18)
[2018-05-20] MEDS: Senna/Docusate Sodium 1 Tablet 2 TABLET PO ×2 (09:18→21:32)
[2018-05-20] MEDS: Loratadine 10 MG Tablet PO (09:18)
[2018-05-20] MEDS: Carvedilol 6.25 MG Tablet PO ×2 (09:18→21:31)
[2018-05-20] MEDS: Lisinopril 2.5 MG Tablet PO (09:18)
--- NOTE | 2018-05-20 13:10 | PCM.PN.NEU ---
Subjective: No issues overnight. Care discussed with nursing staff - Physical Exam General: Alert HEENT: Normocephalic Neck: Supple Lungs: Normal air movement Cardiovascular: Normal S1, Normal S2 Abdomen: Bowel Sounds Present Extremities: No cyanosis Neurological: Cranial nerves II-XII grossly intact, Deep Tendon Reflexes 2+/4 and Symmetrical, Neuro grossly intact, Motor Exam 5/5 strength throughout, Muscle tone normal, Sensory exam intact to light touch and pain, Coordination normal Psych/Mental Status: Normal Affect Vital Signs Temp Pulse Resp BP Pulse Ox 97.8 F 99 18 143/72 H 96 05/20/18 07:02 05/20/18 07:02 05/20/18 07:02 05/20/18 07:02 05/20/18 07:02 Oxygen Flow Rate (L/min) 3 Oxygen Delivery Method Room Air Weight: 76 kg Body Mass Index (BMI) 25.5 Finger Stick Blood Glucose 132 Intake and Output for Last 24 Hours 05/18/18 05/19/18 05/20/18 23:59 23:59 23:59 Intake Total 480 / 480 1160 / 1160 240 / 240 Balance 480 / 480 1160 / 1160 240 / 240 Medical Necessity - Tobacco Use Smoking Status: Never smoker Assessment/Plan 74 yr CM with PMH HTN, HLD, DM, CAD s/p stents, hypothyroidism, BPH, recent traumatic right distal fibula fracture s/p ORIF by Dr. Metcalf on 05/13/18, admitted to [facility] on 05/13/18 for debility s/p recent traumatic right distal fibula fracture s/p ORIF, for > 3 hrs therapy daily with a goal of returning home at or near his prior level of functional independence. Plan - PT for gait stability - OT for ADLs - Bowel protocol - Analgesics as needed - Right distal fibula fracture s/p ORIF- management and evaluation per orthopedic surgeon Dr. Metcalf's recommendations.Per patient he feels his symtpoms of leg tightness above the case is better since the cast has been loosened on Dr. Metcalf's recommendation. Will have Dr. Metcalf reevaluate and defer further management per orthopedics recommendations. - HTN- on Lisinopril and Coreg - DM- on Metformin - HLD- on Lipitor - CAD s/p stents- on ASA and Nitrostat PRN - Hypothyroidism- on Levothyroxine - BPH- on Tamsulosin - GI/DVT prophylaxis- on Lovenox - Fall precautions - Further medical management per hospitalist recommendations
--- NOTE | 2018-05-20 15:53 | PN_ITS ---
Subjective: Patient seen and examined. He had no complaints and feels well. Denies any fever chills, cough or chest pain, shortness of breath, abdominal pain, diarrhea vomiting. He is now able to have bowel movements after being given a laxative. Review of systems otherwise negative. Labs and vitals reviewed. He is due to have a change of the dressing of his right lower extremity today. Vitals/I&O's: Vital Signs Temp Pulse Resp BP Pulse Ox 97.8 F 99 18 143/72 H 96 05/20/18 07:02 05/20/18 07:02 05/20/18 07:02 05/20/18 07:02 05/20/18 07:02 Oxygen Flow Rate (L/min) 3 Oxygen Delivery Method Room Air Weight: 167 lb 8.821 oz Body Mass Index (BMI) 25.5 Finger Stick Blood Glucose 132 Intake and Output for Last 24 Hours 05/18/18 05/19/18 05/20/18 23:59 23:59 23:59 Intake Total 480 / 480 1160 / 1160 240 / 240 Balance 480 / 480 1160 / 1160 240 / 240 General: Alert, Oriented x3, Cooperative, No apparent distress HEENT: Atraumatic, PERRLA, EOMI, Normocephalic Oral: Moist Mucosa Neck: Supple, No JVD, Negative Carotid Bruits Lungs: Clear to auscultation, Normal air movement, No rhonchi, No wheeze, No rales Cardiovascular: Regular rate, Regular Rhythm, Normal S1, Normal S2, No murmurs Abdomen: Bowel Sounds Present, Soft, Non Tender, Non-Distended, No Hepato- splenomegaly Extremities: No clubbing, No cyanosis, No edema, Capillary Refill Less than 3 Seconds, - Skin: No rashes, No breakdown Musculoskeletal: - - RLE in cast and ANSELMO bandage; dressing is clean and dry. Able to wiggle toes. Neurological: Cranial nerves II-XII grossly intact Psych/Mental Status: Normal Affect, Appropriate, Alert and oriented to time, place, person, mood and affect Current Medications Aspirin (Aspirin, Baby) 81 mg PO DAILY@0800 ON [facility] OF [facility] Last Admin: 05/20/18 09:18 Dose: 81 mg Atorvastatin Calcium (Lipitor) 20 mg PO QHS ON LICENSE OF [facility] Last Admin: 05/19/18 20:14 Dose: 20 mg Bisacodyl (Dulcolax) 10 mg RECTAL .PRN X 1 PRN PRN Reason: Constipation Cal[facility]/Vitamin D (Os-Curt 500mg + D[facility] Last Admin: 05/20/18 09:17 Dose: 1 tablet Carvedilol (Coreg) 6.25 mg PO BID ON LICENSE OF [facility] Last Admin: 05/20/18 09:18 Dose: 6.25 mg Cyanocobalamin (Vitamin B12) 1,000 mcg PO DAILY ON LICENSE OF [facility] Last Admin: 05/20/18 09:18 Dose: 1,000 mcg Enoxaparin Sodium (Lovenox) 40 mg SC DAILY@0600 ON LICENSE OF [facility] Last Admin: 05/20/18 06:44 Dose: 40 mg Levothyroxine Sodium (Synthroid) 75 mcg PO DAILY@0600 ON [facility] OF [facility] Last Admin: 05/20/18 06:44 Dose: 75 mcg Lisinopril (Zestril) 2.5 mg PO DAILY ON [facility] OF [facility] Last Admin: 05/20/18 09:18 Dose: 2.5 mg Loratadine (Claritin) 10 mg PO DAILY ON LICENSE OF [facility] Last Admin: 05/20/18 09:18 Dose: 10 mg Magnesium Hydroxide (Milk Of Magnesia) 30 ml PO .PRN X 1 PRN PRN Reason: Constipation Last Admin: 05/16/18 09:32 Dose: 30 ml [facility] ([facility]) [facility] Last Admin: 05/20/18 09:17 Dose: 500 mg Nitroglycerin (Nitrostat) 0.4 mg SUBLINGUAL Q5M PRN PRN Reason: Chest Pain Oxycodone HCl (Oxyir) 5 - 10 mg PO Q4H PRN PRN PRN Reason: PAIN Last Admin: 05/20/18 06:55 Dose: 5 mg Senna/Docusate Sodium (Senokot-S, Samanta-Colace) 2 tablet PO BID ON LICENSE OF [facility] Last Admin: 05/20/18 09:18 Dose: 2 tablet Tamsulosin HCl (Flomax) 0.4 mg PO DAILY@1730 ON LICENSE OF [facility] Last Admin: 05/19/18 17:02 Dose: 0.4 mg Medical Necessity - Tobacco Use Smoking Status: Never smoker Assessment/Plan 1. Acute traumatic right distal fibular fracture * s/p ORIF. * on oxy IR for pain. Pain is very well controlled * PT/OT on board; tolerating therapy well * Orthopedics on board. Due to have his cast and dressing change today according to patient. 2. CAD status post stents: Stable. On aspirin, statin, Coreg and lisinopril 3. Type 2 diabetes mellitus: On metformin. Stable. 4. Hypertension: controlled. on Coreg and lisinopril 5. Hypothyroidism: on synthroid 6. BPH: on flomax DVT prophylaxis: lovenox Code Visit Inpatient E&M: 56280 Subs Hosp L2
[2018-05-20] MEDS: Tamsulosin HCl 0.4 MG Capsule PO (17:54)
[2018-05-20 18:46] VITALS: BP 141/73; PULSE 100; RESP 18; TEMP 37.3; O2SAT 96
[2018-05-20 21:00] VITALS: PULSE 100; RESP 18; O2SAT 96
[2018-05-20] MEDS: Atorvastatin Calcium 20 MG Tablet PO (21:32)
[2018-05-21] MEDS: Enoxaparin 40 MG/0.4 ML Syringe SC (05:48)
--- NOTE | 2018-05-21 06:31 | NURSING ---
Reviewed and agree with LPNs fims and handoff
[2018-05-21] MEDS: Levothyroxine 75 MCG Tablet PO (06:48)
[2018-05-21 07:19] VITALS: BP 141/73; PULSE 100; RESP 18; TEMP 37.3; O2SAT 96
[2018-05-21] MEDS: Cyanocobalamin 500 MCG Tablet 1000 MCG PO (08:17)
[2018-05-21] MEDS: Lisinopril 2.5 MG Tablet PO ×2 (08:18→13:17)
[2018-05-21] MEDS: Carvedilol 6.25 MG Tablet PO ×2 (08:18→20:09)
[2018-05-21] MEDS: Loratadine 10 MG Tablet PO (08:18)
[2018-05-21] MEDS: Calcium Carb/Vitamin D 1 TABLET Tablet PO ×2 (08:18→17:23)
[2018-05-21] MEDS: Aspirin 81 MG TAB.CHEW PO (08:18)
--- NOTE | 2018-05-21 12:13 | PCM.PN.NEU ---
Subjective: No issues overnight. Care discussed with nursing staff - Physical Exam General: Alert HEENT: Normocephalic Neck: Supple Lungs: Clear to auscultation Cardiovascular: Regular Rhythm, Normal S1, Normal S2 Abdomen: Bowel Sounds Present Extremities: No cyanosis Neurological: Cranial nerves II-XII grossly intact, Deep Tendon Reflexes 2+/4 and Symmetrical, Neuro grossly intact, Motor Exam 5/5 strength throughout, Muscle tone normal, Sensory exam intact to light touch and pain, Coordination normal Psych/Mental Status: Normal Affect Vital Signs Temp Pulse Resp BP Pulse Ox 99.1 F 100 18 141/73 H 96 05/21/18 07:19 05/21/18 07:19 05/21/18 07:19 05/21/18 07:19 05/21/18 07:19 Oxygen Flow Rate (L/min) 3 Oxygen Delivery Method Room Air Weight: 73.3 kg Body Mass Index (BMI) 25.5 Finger Stick Blood Glucose 132 Intake and Output for Last 24 Hours 05/19/18 05/20/18 05/21/18 23:59 23:59 23:59 Intake Total 1160 / 1160 240 / 240 240 / 240 Balance 1160 / 1160 240 / 240 240 / 240 Medical Necessity - Tobacco Use Smoking Status: Never smoker Assessment/Plan 74 yr CM with PMH HTN, HLD, DM, CAD s/p stents, hypothyroidism, BPH, recent traumatic right distal fibula fracture s/p ORIF by Dr. Metcalf on 05/13/18, admitted to [facility] on 05/13/18 for debility s/p recent traumatic right distal fibula fracture s/p ORIF, for > 3 hrs therapy daily with a goal of returning home at or near his prior level of functional independence. Plan - PT for gait stability - OT for ADLs - Bowel protocol - Analgesics as needed - Right distal fibula fracture s/p ORIF- management and evaluation per orthopedic surgeon Dr. Metcalf's recommendations.Per patient he feels his symptoms of leg tightness above the cast is better since the cast has been loosened on Dr. Metcalf's recommendation. Will have Dr. Metcalf reevaluate and defer further management per orthopedics recommendations. - HTN- on Lisinopril and Coreg. Will increase Lisinopril to 5 mg daily for better BP control - DM- on Metformin - HLD- on Lipitor - CAD s/p stents- on ASA and Nitrostat PRN - Hypothyroidism- on Levothyroxine - BPH- on Tamsulosin - GI/DVT prophylaxis- on Lovenox - Fall precautions - Further medical management per hospitalist recommendations
[2018-05-21] MEDS: Tamsulosin HCl 0.4 MG Capsule PO (17:23)
[2018-05-21 20:07] VITALS: BP 120/62; PULSE 86; RESP 17; TEMP 36.7; O2SAT 94
[2018-05-21] MEDS: Atorvastatin Calcium 20 MG Tablet PO (20:08)
[2018-05-21] MEDS: MELATONIN 3 MG TABLET PO (20:09)
[2018-05-22] MEDS: oxyCODONE 5 MG Tablet PO ×2 (05:30→14:12)
[2018-05-22] MEDS: Levothyroxine 75 MCG Tablet PO (05:31)
[2018-05-22] MEDS: Enoxaparin 40 MG/0.4 ML Syringe SC (05:31)
[2018-05-22 07:27] VITALS: BP 108/52; PULSE 82; RESP 20; TEMP 36.7; O2SAT 95
[2018-05-22] MEDS: Cyanocobalamin 500 MCG Tablet 1000 MCG PO (08:30)
[2018-05-22] MEDS: Carvedilol 6.25 MG Tablet PO ×2 (08:31→22:36)
[2018-05-22] MEDS: Aspirin 81 MG TAB.CHEW PO (08:31)
[2018-05-22] MEDS: Loratadine 10 MG Tablet PO (08:31)
[2018-05-22] MEDS: Lisinopril 5 MG Tablet PO (08:31)
[2018-05-22] MEDS: Calcium Carb/Vitamin D 1 TABLET Tablet PO ×2 (08:32→17:01)
[2018-05-22] MEDS: Tamsulosin HCl 0.4 MG Capsule PO (17:01)
[2018-05-22 19:30] VITALS: BP 127/72; PULSE 80; RESP 18; TEMP 36.6; O2SAT 95
[2018-05-22] MEDS: Atorvastatin Calcium 20 MG Tablet PO (22:35)
[2018-05-22] MEDS: MELATONIN 3 MG TABLET PO (22:35)
[2018-05-23] MEDS: Enoxaparin 40 MG/0.4 ML Syringe SC (05:19)
[2018-05-23] MEDS: Levothyroxine 75 MCG Tablet PO (05:19)
[2018-05-23 07:00] VITALS: BP 135/69; PULSE 84; RESP 20; TEMP 36.7; O2SAT 95
[2018-05-23] MEDS: Loratadine 10 MG Tablet PO (07:26)
[2018-05-23] MEDS: Cyanocobalamin 500 MCG Tablet 1000 MCG PO (07:26)
[2018-05-23] MEDS: Lisinopril 5 MG Tablet PO (07:26)
[2018-05-23] MEDS: Aspirin 81 MG TAB.CHEW PO (07:27)
[2018-05-23] MEDS: Carvedilol 6.25 MG Tablet PO ×2 (07:27→20:37)
[2018-05-23] MEDS: Calcium Carb/Vitamin D 1 TABLET Tablet PO ×2 (07:27→17:08)
--- NOTE | 2018-05-23 11:49 | PCM.PN.NEU ---
Subjective: No issues overnight. Care discussed with nursing staff. Patient complained of left scrotal swelling. But denies any pain - Physical Exam General: Alert HEENT: Normocephalic Neck: Supple Lungs: Normal air movement Cardiovascular: Normal S1, Normal S2 Abdomen: Bowel Sounds Present Extremities: No cyanosis Skin: - - Left scrotal swelling, no tenderness on examination. Neurological: Cranial nerves II-XII grossly intact, Deep Tendon Reflexes 2+/4 and Symmetrical, Neuro grossly intact, Motor Exam 5/5 strength throughout, Muscle tone normal, Sensory exam intact to light touch and pain, Coordination normal Psych/Mental Status: Normal Affect Vital Signs Temp Pulse Resp BP Pulse Ox 98.1 F 84 20 H 135/69 H 95 05/23/18 07:00 05/23/18 07:00 05/23/18 07:00 05/23/18 07:00 05/23/18 07:00 Oxygen Flow Rate (L/min) 3 Oxygen Delivery Method Room Air Weight: 73.3 kg Body Mass Index (BMI) 25.5 Finger Stick Blood Glucose 132 Intake and Output for Last 24 Hours 05/21/18 05/22/18 05/23/18 23:59 23:59 23:59 Intake Total 480 / 480 480 / 480 240 / 240 Balance 480 / 480 480 / 480 240 / 240 Medical Necessity - Tobacco Use Smoking Status: Never smoker Assessment/Plan 74 yr CM with H HTN, HLD, DM, CAD s/p stents, hypothyroidism, BPH, recent traumatic right distal fibula fracture s/p ORIF by Dr. Metcalf on 05/13/18, admitted to [facility] on 05/13/18 for debility s/p recent traumatic right distal fibula fracture s/p ORIF, for > 3 hrs therapy daily with a goal of returning home at or near his prior level of functional independence. Plan - PT for gait stability - OT for ADLs - Bowel protocol - Analgesics as needed - Right distal fibula fracture s/p ORIF- management and evaluation per orthopedic surgeon Dr. Metcalf's recommendations.Per patient he feels his symptoms of leg tightness above the cast is better since the cast has been loosened on Dr. Metcalf's recommendation. Will have Dr. Metcalf reevaluate and defer further management per orthopedics recommendations. - Left scrotal swelling- will consult General Surgery for further evaluation and management, denies any pain or tenderness in the scrotum. - HTN- on Lisinopril and Coreg. - DM- on Metformin - HLD- on Lipitor - CAD s/p stents- on ASA and Nitrostat PRN - Hypothyroidism- on Levothyroxine - BPH- on Tamsulosin - GI/DVT prophylaxis- on Lovenox - Fall precautions - Further medical management per hospitalist recommendations
--- NOTE | 2018-05-23 17:00 | NURSING ---
Dr. Salgado and this nurse assessed patient who c/o that his testicles/scrotum appear larger and upon assessment the left testicle is larger than the right and it remains painless. Dr. Salgado recommended [facility] surgical consult and this nurse called Dr. Esteves. reported it appears that patient should see [facility]rology first and if he is needed then he will come see patient and Dr. Brizuela office phoned and they are out until Saturday. Patient is a known patient of [facility] and he is aware of the consult.
[2018-05-23] MEDS: Tamsulosin HCl 0.4 MG Capsule PO (17:08)
[2018-05-23] MEDS: oxyCODONE 5 MG Tablet PO (17:42)
[2018-05-23 18:40] VITALS: BP 129/55; PULSE 88; RESP 18; TEMP 36.6; O2SAT 92
[2018-05-23 20:21] VITALS: BP 128/74; PULSE 92; RESP 18; TEMP 36.6; O2SAT 94
[2018-05-23] MEDS: Atorvastatin Calcium 20 MG Tablet PO (20:37)
[2018-05-23] MEDS: MELATONIN 3 MG TABLET PO (20:38)
[2018-05-23] MEDS: Senna/Docusate Sodium 1 Tablet 2 TABLET PO (20:38)
[2018-05-24] MEDS: Enoxaparin 40 MG/0.4 ML Syringe SC (06:16)
[2018-05-24] MEDS: Levothyroxine 75 MCG Tablet PO (06:17)
[2018-05-24] MEDS: oxyCODONE 5 MG Tablet PO ×2 (06:28→21:02)
[2018-05-24 07:01] VITALS: BP 126/82; PULSE 87; RESP 18; TEMP 36.6; O2SAT 93
--- NOTE | 2018-05-24 08:00 | NURSING ---
Dr. Esteves in to see patient and assessed enlarged testi on the left side. Patient denied discomfort. reported to this nurse he would like urology to see patient still.
[2018-05-24] MEDS: Lisinopril 5 MG Tablet PO (08:05)
[2018-05-24] MEDS: Loratadine 10 MG Tablet PO (08:05)
[2018-05-24] MEDS: Aspirin 81 MG TAB.CHEW PO (08:05)
[2018-05-24] MEDS: Calcium Carb/Vitamin D 1 TABLET Tablet PO ×2 (08:05→17:08)
[2018-05-24] MEDS: Cyanocobalamin 500 MCG Tablet 1000 MCG PO (08:05)
[2018-05-24] MEDS: Carvedilol 6.25 MG Tablet PO ×2 (08:05→20:58)
--- NOTE | 2018-05-24 12:42 | PCM.PN.HOSP ---
Subjective: Patient seen and examined. He had no complaints and felt well. He denied any fever or chills, cough or chest pain, shortness of breath, abdominal pain, any diarrhea or vomiting. 12 point review of systems otherwise negative. Labs and vitals reviewed. Vitals/I&O's: Vital Signs Temp Pulse Resp BP Pulse Ox 97.9 F 87 18 126/82 H 93 05/24/18 07:01 05/24/18 07:01 05/24/18 07:01 05/24/18 07:01 05/24/18 07:01 Oxygen Flow Rate (L/min) 3 Oxygen Delivery Method Room Air Weight: 161 lb 9.581 oz Body Mass Index (BMI) 25.5 Finger Stick Blood Glucose 132 Intake and Output for Last 24 Hours 05/22/18 05/23/18 05/24/18 23:59 23:59 23:59 Intake Total 480 / 480 960 / 960 480 / 480 Output Total 300 / 300 Balance 480 / 480 660 / 660 480 / 480 General: Alert, Oriented x3, Cooperative, No apparent distress HEENT: Atraumatic, PERRLA, EOMI, Normocephalic Oral: Moist Mucosa Neck: Supple, No JVD, Negative Carotid Bruits Lungs: Clear to auscultation, Normal air movement, No rhonchi, No wheeze, No rales Cardiovascular: Regular rate, Regular Rhythm, Normal S1, Normal S2, No murmurs Abdomen: Bowel Sounds Present, Soft, Non Tender, Non-Distended, No Hepato-splenomegaly Extremities: No clubbing, No cyanosis, No edema, Capillary Refill Less than 3 Seconds, - Skin: No rashes, No breakdown Musculoskeletal: - - RLE in cast and ANSELMO bandage; dressing is clean and dry. Able to wiggle toes. Neurological: Cranial nerves II-XII grossly intact Psych/Mental Status: Normal Affect, Appropriate, Alert and oriented to time, place, person, mood and affect Current Medications Aspirin (Aspirin, Baby) 81 mg PO DAILY@0800 [facility] Last Admin: 05/24/18 08:05 Dose: 81 mg Atorvastatin Calcium (Lipitor) 20 mg PO QHS [facility] Last Admin: 05/23/18 20:37 Dose: 20 mg Bisacodyl (Dulcolax) 10 mg RECTAL .PRN X 1 PRN PRN Reason: Constipation Calcium/Vitamin D (Os-Curt 500mg + D) [facility] Last Admin: 05/24/18 08:05 Dose: 1 tablet Carvedilol (Coreg) 6.25 mg PO BID [facility] Last Admin: 05/24/18 08:05 Dose: 6.25 mg Cyanocobalamin (Vitamin B12) 1,000 mcg PO DAILY [facility] Last Admin: 05/24/18 08:05 Dose: 1,000 mcg Enoxaparin Sodium (Lovenox) 40 mg SC DAILY@0600 [facility] Last Admin: 05/24/18 06:16 Dose: 40 mg Levothyroxine Sodium (Synthroid) 75 mcg PO DAILY@0600 [facility] Last Admin: 05/24/18 06:17 Dose: 75 mcg Lisinopril (Zestril) 5 mg PO DAILY [facility] Last Admin: 05/24/18 08:05 Dose: 5 mg Loratadine (Claritin) 10 mg PO DAILY [facility] Last Admin: 05/24/18 08:05 Dose: 10 mg Magnesium Hydroxide (Milk Of Magnesia) 30 ml PO .PRN X 1 PRN PRN Reason: Constipation Last Admin: 05/16/18 09:32 Dose: 30 ml Melatonin (Melatonin) 3 mg PO QHS [facility] Last Admin: 05/23/18 20:38 Dose: 3 mg Metformin HCl (Glucophage) [facility] Last Admin: 05/24/18 08:05 Dose: 500 mg Nitroglycerin (Nitrostat) 0.4 mg SUBLINGUAL Q5M PRN PRN Reason: Chest Pain Oxycodone HCl (Oxyir) 5 - 10 mg PO Q4H PRN PRN PRN Reason: PAIN Last Admin: 05/24/18 06:28 Dose: 5 mg Senna/Docusate Sodium (Senokot-S, Samanta-Colace) 2 tablet PO BID [facility] Last Admin: 05/24/18 08:06 Dose: Not Given Tamsulosin HCl (Flomax) 0.4 mg PO DAILY@1730 [facility] Last Admin: 05/23/18 17:08 Dose: 0.4 mg Medical Necessity - Tobacco Use Smoking Status: Never smoker Assessment/Plan 1. Acute traumatic right distal fibular fracture s/p ORIF. on oxy IR for pain. Pain is very well controlled PT/OT on board; tolerating therapy well Orthopedics on board. 2. CAD status post stents: Stable. On aspirin, statin, Coreg and lisinopril 3. Type 2 diabetes mellitus: On metformin. Stable. 4. Hypertension: controlled. on Coreg and lisinopril 5. Hypothyroidism: on synthroid 6. BPH: on flomax DVT prophylaxis: lovenox Code Visit Inpatient E&M: 10660 Subs Hosp L2
[2018-05-24] MEDS: Tamsulosin HCl 0.4 MG Capsule PO (17:08)
[2018-05-24 19:01] VITALS: BP 147/68; PULSE 88; RESP 16; TEMP 36.7; O2SAT 96
[2018-05-24] MEDS: Senna/Docusate Sodium 1 Tablet 2 TABLET PO (20:57)
[2018-05-24] MEDS: MELATONIN 3 MG TABLET PO (20:58)
[2018-05-24] MEDS: Atorvastatin Calcium 20 MG Tablet PO (20:58)
--- NOTE | 2018-05-24 21:15 | NURSING ---
At 21:00, pt found by this nurse standing at thermostat adjusting room temperature. This nurse had adjusted room temperature 30 minutes prior, as well as, assisted with changing pants to cooler weight pants & emptied urinal. Call light was affirmed to be in place within reach of recliner for pt use. Pt denied further needs at that time. TRAFFIC COORDINATOR had assisted pt to toilet within minutes of nurse in room, upon checking on pt. TRAFFIC COORDINATOR reiterated that pt should use call light for any further needs and call light was within reach before leaving pt room. Upon finding pt up, nurse assisted pt back to recliner and pt admitted to removing pants previously put on not long ago. This nurse expressed concern about not using call light. Pt expressed understanding about using call light. TRAFFIC COORDINATOR reinstated PA to pt garment and staff discussed why PA was now reattached. Pt tried to change the subject and talk about golf and pt was redirected to the importance of safety while on this unit and our measures in place to keep pt safe. Pt is sitting in recliner at this time with tv on and assures staff that he will abide by safety measures. Staff will continue to monitor pt.
[2018-05-25] MEDS: Enoxaparin 40 MG/0.4 ML Syringe SC (06:01)
[2018-05-25] MEDS: Levothyroxine 75 MCG Tablet PO (06:02)
[2018-05-25 07:09] VITALS: BP 135/52; PULSE 82; RESP 16; TEMP 36.6; O2SAT 97
[2018-05-25] MEDS: Aspirin 81 MG TAB.CHEW PO (08:14)
[2018-05-25] MEDS: Cyanocobalamin 500 MCG Tablet 1000 MCG PO (08:15)
[2018-05-25] MEDS: Calcium Carb/Vitamin D 1 TABLET Tablet PO ×2 (08:15→17:30)
[2018-05-25] MEDS: Loratadine 10 MG Tablet PO (08:15)
[2018-05-25] MEDS: Lisinopril 5 MG Tablet PO (08:15)
[2018-05-25] MEDS: Carvedilol 6.25 MG Tablet PO ×2 (08:17→20:59)
[2018-05-25] MEDS: Tamsulosin HCl 0.4 MG Capsule PO (17:30)
[2018-05-25 19:03] VITALS: BP 117/58; PULSE 89; RESP 16; TEMP 36.7; O2SAT 93
[2018-05-25 20:30] VITALS: PULSE 89; RESP 16; O2SAT 93
[2018-05-25] MEDS: Atorvastatin Calcium 20 MG Tablet PO (20:59)
[2018-05-25] MEDS: Senna/Docusate Sodium 1 Tablet 2 TABLET PO (20:59)
[2018-05-25] MEDS: MELATONIN 3 MG TABLET PO (20:59)
[2018-05-25] MEDS: oxyCODONE 5 MG Tablet PO (21:02)
--- NOTE | 2018-05-26 02:28 | NURSING ---
Reviewed and agree with SHOTBLAST OPERATOR documentation and FIMs charting.
[2018-05-26] MEDS: Enoxaparin 40 MG/0.4 ML Syringe SC (05:00)
[2018-05-26] MEDS: Levothyroxine 75 MCG Tablet PO (05:00)
[2018-05-26 07:00] VITALS: BP 128/62; PULSE 84; RESP 17; TEMP 36.7; O2SAT 96
[2018-05-26 08:00] VITALS: BP 118/65; PULSE 83; RESP 20; TEMP 36.8; O2SAT 95
[2018-05-26] MEDS: Carvedilol 6.25 MG Tablet PO ×2 (08:04→20:19)
[2018-05-26] MEDS: Calcium Carb/Vitamin D 1 TABLET Tablet PO ×2 (08:04→17:18)
[2018-05-26] MEDS: Cyanocobalamin 500 MCG Tablet 1000 MCG PO (08:04)
[2018-05-26] MEDS: Aspirin 81 MG TAB.CHEW PO (08:04)
[2018-05-26] MEDS: Senna/Docusate Sodium 1 Tablet 2 TABLET PO ×2 (08:05→20:20)
[2018-05-26] MEDS: Lisinopril 5 MG Tablet PO (08:05)
[2018-05-26] MEDS: oxyCODONE 5 MG Tablet PO ×3 (08:09→20:19)
[2018-05-26] MEDS: Loratadine 10 MG Tablet PO (08:10)
--- NOTE | 2018-05-26 10:01 | PCM.PN.NEU ---
Subjective: Patient was staffed in Team Meeting. Family at bedside, questions answered. With Physical therapy, he is standby assist to get to his feet, he is able to walk greater than 120 feet with walker and maintaining NWB at stand by assist. They have gone up one step at contact guard, this is somewhat hard given he has to hop and maintain his NWB status on the left side. He is able to get in and out of bed at supervision level. With Occupational therapy he is able to do a complete sponge bath and all his own personal care at Stand by to supervision level. He is stand by assist for getting to the bathroom. With Nursing his BP is stable on current medication, his pain is well controlled and he is sleeping good. The issue with swelling of his Scrotum has improved, he denies any pain when urinating, will increase his Flomax to .08mg and have him stand at the toilet to urinate instead of using the urinal. He is scheduled to go to TCU on Tuesday 05/29. - Physical Exam General: Alert, Oriented x3, Cooperative HEENT: Atraumatic, PERRLA, EOMI, Normocephalic Neck: Supple, No JVD, Negative Carotid Bruits Lungs: Clear to auscultation, Normal air movement Cardiovascular: Regular rate, No murmurs Abdomen: Bowel Sounds Present, Soft, Non Tender Extremities: No edema, Capillary Refill Less than 3 Seconds Skin: No rashes, No breakdown Musculoskeletal: No Tenderness to Palpation of Joints or Extremities Neurological: Cranial nerves II-XII grossly intact Psych/Mental Status: Normal Affect, Appropriate, Alert and oriented to time, place, person, mood and affect Vital Signs Temp Pulse Resp BP Pulse Ox 98.3 F 83 20 H 118/65 95 05/26/18 08:00 05/26/18 08:00 05/26/18 08:00 05/26/18 08:00 05/26/18 08:00 Oxygen Flow Rate (L/min) 3 Oxygen Delivery Method Room Air Weight: 73.3 kg Body Mass Index (BMI) 25.5 Finger Stick Blood Glucose 132 Intake and Output for Last 24 Hours 05/24/18 05/25/18 05/26/18 23:59 23:59 23:59 Intake Total 480 / 480 920 / 920 Balance 480 / 480 920 / 920 Active Medications Aspirin (Aspirin, Baby) 81 mg PO DAILY@0800 [facility] Last Admin: 05/26/18 08:04 Dose: 81 mg Atorvastatin Calcium (Lipitor) 20 mg PO QHS [facility] Last Admin: 05/25/18 20:59 Dose: 20 mg Bisacodyl (Dulcolax) 10 mg RECTAL .PRN X 1 PRN PRN Reason: Constipation Calcium/Vitamin D (Os-Curt 500mg + D) [facility] Last Admin: 05/26/18 08:04 Dose: 1 tablet Carvedilol (Coreg) 6.25 mg PO BID [facility] Last Admin: 05/26/18 08:04 Dose: 6.25 mg Cyanocobalamin (Vitamin B12) 1,000 mcg PO DAILY [facility] Last Admin: 05/26/18 08:04 Dose: 1,000 mcg Enoxaparin Sodium (Lovenox) 40 mg SC DAILY@0600 [facility] Last Admin: 05/26/18 05:00 Dose: 40 mg Levothyroxine Sodium (Synthroid) 75 mcg PO DAILY@0600 [facility] Last Admin: 05/26/18 05:00 Dose: 75 mcg Lisinopril (Zestril) 5 mg PO DAILY [facility] Last Admin: 05/26/18 08:05 Dose: 5 mg Loratadine (Claritin) 10 mg PO DAILY [facility] Last Admin: 05/26/18 08:10 Dose: 10 mg Magnesium Hydroxide (Milk Of Magnesia) 30 ml PO .PRN X 1 PRN PRN Reason: Constipation Last Admin: 05/16/18 09:32 Dose: 30 ml Melatonin (Melatonin) 3 mg PO QHS [facility] Last Admin: 05/25/18 20:59 Dose: 3 mg Metformin HCl (Glucophage) [facility] Last Admin: 05/26/18 08:04 Dose: 500 mg Nitroglycerin (Nitrostat) 0.4 mg SUBLINGUAL Q5M PRN PRN Reason: Chest Pain Oxycodone HCl (Oxyir) 5 - 10 mg PO Q4H PRN PRN PRN Reason: PAIN Last Admin: 05/26/18 08:09 Dose: 5 mg Senna/Docusate Sodium (Senokot-S, Samanta-Colace) 2 tablet PO BID [facility] Last Admin: 05/26/18 08:05 Dose: 2 tablet Tamsulosin HCl (Flomax) 0.4 mg PO 0830,1730 [facility] Medical Necessity - Tobacco Use Smoking Status: Never smoker Assessment/Plan 74 yr CM with PMH HTN, HLD, DM, CAD s/p stents, hypothyroidism, BPH, recent traumatic right distal fibula fracture s/p ORIF by Dr. Metcalf on 05/13/18, admitted to [facility] on 05/13/18 for debility s/p recent traumatic right distal fibula fracture s/p ORIF, for > 3 hrs therapy daily with a goal of returning home at or near his prior level of functional independence. Plan - PT for gait stability - OT for ADLs - Bowel protocol - Analgesics as needed - Right distal fibula fracture s/p ORIF- management and evaluation per orthopedic surgeon Dr. Metcalf's recommendations.Per patient he feels his symptoms of leg tightness above the cast is better since the cast has been loosened on Dr. Metcalf's recommendation. Will have Dr. Metcalf reevaluate and defer further management per orthopedics recommendations. - Left scrotal swelling- will consult General Surgery for further evaluation and management, denies any pain or tenderness in the scrotum. - HTN- on Lisinopril and Coreg. - DM- on Metformin - HLD- on Lipitor - CAD s/p stents- on ASA and Nitrostat PRN - Hypothyroidism- on Levothyroxine - BPH- on Tamsulosin - GI/DVT prophylaxis- on Lovenox - Fall precautions - Increase Flomax to .08mg daily - Discharge to TCU on Monday 05/28
--- NOTE | 2018-05-26 10:17 | PN.NEURO_ITS ---
Subjective: Patient was staffed in Team Meeting. Family at bedside, questions answered. With Physical therapy, he is standby assist to get to his feet, he is able to walk greater than 120 feet with walker and maintaining NWB at stand by assist. They have gone up one step at contact guard, this is somewhat hard given he has to hop and maintain his NWB status on the left side. He is able to get in and out of bed at supervision level. With Occupational therapy he is able to do a complete sponge bath and all his own personal care at Stand by to supervision joe morrow. He is stand by assist for getting to the bathroom. With Nursing his BP is stable on current medication, his pain is well controlled and he is sleeping good. The issue with swelling of his Scrotum has improved, he denies any pain when urinating, will increase his Flomax to .08mg and have him stand at the toilet to urinate instead of using the urinal. He is scheduled to go to TCU on Tuesday 05/29. - Physical Exam General: Alert, Oriented x3, Cooperative HEENT: Atraumatic, PERRLA, EOMI, Normocephalic Neck: Supple, No JVD, Negative Carotid Bruits Lungs: Clear to auscultation, Normal air movement Cardiovascular: Regular rate, No murmurs Abdomen: Bowel Sounds Present, Soft, Non Tender Extremities: No edema, Capillary Refill Less than 3 Seconds Skin: No rashes, No breakdown Musculoskeletal: No Tenderness to Palpation of Joints or Extremities Neurological: Cranial nerves II-XII grossly intact Psych/Mental Status: Normal Affect, Appropriate, Alert and oriented to time, place, person, mood and affect Vital Signs Temp Pulse Resp BP Pulse Ox 98.3 F 83 20 H 118/65 95 05/26/18 08:00 05/26/18 08:00 05/26/18 08:00 05/26/18 08:00 05/26/18 08:00 Oxygen Flow Rate (L/min) 3 Oxygen Delivery Method Room Air Weight: 73.3 kg Body Mass Index (BMI) 25.5 Finger Stick Blood Glucose 132 Intake and Output for Last 24 Hours 05/24/18 05/25/18 05/26/18 23:59 23:59 23:59 Intake Total 480 / 480 920 / 920 Balance 480 / 480 920 / 920 Active Medications Aspirin (Aspirin, Baby) 81 mg PO DAILY@0800 [facility] Last Admin: 05/26/18 08:04 Dose: 81 mg Atorvastatin Calcium (Lipitor) 20 mg PO QHS [facility] Last Admin: 05/25/18 20:59 Dose: 20 mg Bisacodyl (Dulcolax) 10 mg RECTAL .PRN X 1 PRN PRN Reason: Constipation Calcium/Vitamin D (Os-Curt 500mg + D) [facility] Last Admin: 05/26/18 08:04 Dose: 1 tablet Carvedilol (Coreg) 6.25 mg PO BID [facility] Last Admin: 05/26/18 08:04 Dose: 6.25 mg Cyanocobalamin (Vitamin B12) 1,000 mcg PO DAILY [facility] Last Admin: 05/26/18 08:04 Dose: 1,000 mcg Enoxaparin Sodium (Lovenox) 40 mg SC DAILY@0600 [facility] Last Admin: 05/26/18 05:00 Dose: 40 mg Levothyroxine Sodium (Synthroid) 75 mcg PO DAILY@0600 [facility] Last Admin: 05/26/18 05:00 Dose: 75 mcg Lisinopril (Zestril) 5 mg PO DAILY [facility] Last Admin: 05/26/18 08:05 Dose: 5 mg Loratadine (Claritin) 10 mg PO DAILY [facility] Last Admin: 05/26/18 08:10 Dose: 10 mg Magnesium Hydroxide (Milk Of Magnesia) 30 ml PO .PRN X 1 PRN PRN Reason: Constipation Last Admin: 05/16/18 09:32 Dose: 30 ml Melatonin (Melatonin) 3 mg PO QHS [facility] Last Admin: 05/25/18 20:59 Dose: 3 mg Metformin HCl (Glucophage) [facility] Last Admin: 05/26/18 08:04 Dose: 500 mg Nitroglycerin (Nitrostat) 0.4 mg SUBLINGUAL Q5M PRN PRN Reason: Chest Pain Oxycodone HCl (Oxyir) 5 - 10 mg PO Q4H PRN PRN PRN Reason: PAIN Last Admin: 05/26/18 08:09 Dose: 5 mg Senna/Docusate Sodium (Senokot-S, Samanta-Colace) 2 tablet PO BID [facility] Last Admin: 05/26/18 08:05 Dose: 2 tablet Tamsulosin HCl (Flomax) 0.4 mg PO 0830,1730 [facility] Medical Necessity - Tobacco Use Smoking Status: Never smoker Assessment/Plan 74 yr CM with PMH HTN, HLD, DM, CAD s/p stents, hypothyroidism, BPH, recent traumatic right distal fibula fracture s/p ORIF by Dr. Metcalf on 05/13/18, admitted to [facility] on 05/13/18 for debility s/p recent traumatic right distal fibula fracture s/p ORIF, for > 3 hrs therapy daily with a goal of returning home at or near his prior level of functional independence. Plan - PT for gait stability - OT for ADLs - Bowel protocol - Analgesics as needed - Right distal fibula fracture s/p ORIF- management and evaluation per orthopedic surgeon Dr. Metcalf's recommendations.Per patient he feels his sympt oms of leg tightness above the cast is better since the cast has been loosened on Dr. Metcalf's recommendation. Will have Dr. Metcalf reevaluate and defer further management per orthopedics recommendations. - Left scrotal swelling- will consult General Surgery for further evaluation and management, denies any pain or tenderness in the scrotum. - HTN- on Lisinopril and Coreg. - DM- on Metformin - HLD- on Lipitor - CAD s/p stents- on ASA and Nitrostat PRN - Hypothyroidism- on Levothyroxine - BPH- on Tamsulosin - GI/DVT prophylaxis- on Lovenox - Fall precautions - Increase Flomax to .08mg daily - Discharge to TCU on Monday 05/28
--- NOTE | 2018-05-26 11:25 | CASEMGMT ---
Team meeting held. Patient present as well as patient daughter. Discharge date set for 05/28/18. Patient plans to transition to the Transitional Care Unit at [facility]. Patient to continue with further care and treatment on the Inpatient Rehab unit until time of discharge. Support given. Transfer form initiated. Spoke with Karmen on the Transitional Care Unit, admission is confirmed for 05/28/18. Proposed discharge date: 05/28/18 PLAN: Discharge to the Transitional Care Unit - Skilled. DONNELL Medrano, CYCLE COUNTER
[2018-05-26] MEDS: Tamsulosin HCl 0.4 MG Capsule PO ×2 (11:51→17:18)
--- NOTE | 2018-05-26 16:06 | PCM.TXEXTCAR ---
- Diet 05/13/18 17:33 Diet: Calorie Controlled How many daily calories?: 2000 calorie - Wound(s) bilat knees Wound Type: callous rt ankle Wound Type: Surgical Incision rt distal knee Wound Type: Hematoma - Therapies Weight Bearing: Non weight bearing Extremity Affected:: Right Lower Physical Therapy: Eval and Treat Occupational Therapy: Eval and Treat - Allergies/Procedures Done in Hospital Allergies/Adverse Reactions: Allergies No Known Allergies Allergy (Verified 11/22/14 21:08) - Type of Care/Length of Stay Estimated LOS: More Than 30 Days Type of Care Needed: Skilled Rehab Potential: Good Prognosis: Good - Additional Orders/Day of Discharge Day of Discharge: 05/28/18 - Follow Up Care Primary Care Physician: Eduard Sánchez NP-C [Primary Care Provider] -
[2018-05-26 19:28] VITALS: BP 116/67; PULSE 61; RESP 20; TEMP 37.1; O2SAT 95
[2018-05-26 19:50] VITALS: PULSE 61; RESP 20; O2SAT 95
[2018-05-26] MEDS: Atorvastatin Calcium 20 MG Tablet PO (20:19)
[2018-05-26] MEDS: MELATONIN 3 MG TABLET PO (20:19)
--- NOTE | 2018-05-27 04:34 | NURSING ---
REVIEWED AND AGREE WITH [employer] FIM AND HANDOFF CHARTING.
[2018-05-27] MEDS: oxyCODONE 5 MG Tablet PO ×3 (06:06→21:13)
[2018-05-27] MEDS: Enoxaparin 40 MG/0.4 ML Syringe SC (06:08)
[2018-05-27] MEDS: Levothyroxine 75 MCG Tablet PO (06:08)
[2018-05-27 07:45] VITALS: BP 120/71; PULSE 87; RESP 12; TEMP 36.6; O2SAT 95
[2018-05-27] MEDS: Lisinopril 5 MG Tablet PO (07:53)
[2018-05-27] MEDS: Loratadine 10 MG Tablet PO (07:53)
[2018-05-27] MEDS: Aspirin 81 MG TAB.CHEW PO (07:53)
[2018-05-27] MEDS: Calcium Carb/Vitamin D 1 TABLET Tablet PO ×2 (07:53→17:00)
[2018-05-27] MEDS: Cyanocobalamin 500 MCG Tablet 1000 MCG PO (07:54)
[2018-05-27] MEDS: Carvedilol 6.25 MG Tablet PO ×2 (07:55→21:10)
[2018-05-27] MEDS: Tamsulosin HCl 0.4 MG Capsule PO ×2 (09:50→17:00)
--- NOTE | 2018-05-27 12:09 | PCM.PN.NEU ---
Subjective: Patient seen. No new complaints. Tolerating therapy. - Physical Exam General: Alert, Oriented x3, Cooperative HEENT: Atraumatic, PERRLA, EOMI, Normocephalic Neck: Supple, No JVD, Negative Carotid Bruits Lungs: Clear to auscultation, Normal air movement Cardiovascular: Regular rate, No murmurs Abdomen: Bowel Sounds Present, Soft, Non Tender Extremities: No edema, Capillary Refill Less than 3 Seconds Skin: No rashes, No breakdown Musculoskeletal: No Tenderness to Palpation of Joints or Extremities Neurological: Cranial nerves II-XII grossly intact Psych/Mental Status: Normal Affect, Appropriate, Alert and oriented to time, place, person, mood and affect Vital Signs Temp Pulse Resp BP Pulse Ox 97.8 F 87 12 120/71 95 05/27/18 07:45 05/27/18 07:45 05/27/18 07:45 05/27/18 07:45 05/27/18 07:45 Oxygen Flow Rate (L/min) 3 Oxygen Delivery Method Room Air Weight: 73.3 kg Body Mass Index (BMI) 25.5 Finger Stick Blood Glucose 132 Intake and Output for Last 24 Hours 05/25/18 05/26/18 05/27/18 23:59 23:59 23:59 Intake Total 920 / 920 360 / 360 240 / 240 Balance 920 / 920 360 / 360 240 / 240 Active Medications Acetaminophen (Tylenol) 650 mg PO Q6H PRN PRN PRN Reason: MILD PAIN (1-3/10) Aspirin (Aspirin, Baby) 81 mg PO DAILY@0800 [facility] Last Admin: 05/27/18 07:53 Dose: 81 mg Atorvastatin Calcium (Lipitor) 20 mg PO QHS [facility] Last Admin: 05/26/18 20:19 Dose: 20 mg Bisacodyl (Dulcolax) 10 mg RECTAL .PRN X 1 PRN PRN Reason: Constipation Calcium/Vitamin D ([facility]Curt 500[facility] + D) [facility] Last Admin: 05/27/18 07:53 Dose: 1 tablet Carvedilol (Coreg) 6.25 mg PO BID [facility] Last Admin: 05/27/18 07:55 Dose: 6.25 mg Cyanocobalamin (Vitamin B12) 1,000 mcg PO DAILY [facility] Last Admin: 05/27/18 07:54 Dose: 1,000 mcg Enoxaparin Sodium (Lovenox) 40 mg SC DAILY@0600 [facility] Last Admin: 05/27/18 06:08 Dose: 40 mg Levothyroxine Sodium (Synthroid) 75 mcg PO DAILY@0600 [facility] Last Admin: 05/27/18 06:08 Dose: 75 mcg Lisinopril (Zestril) 5 mg PO DAILY [facility] Last Admin: 05/27/18 07:53 Dose: 5 mg Loratadine (Claritin) 10 mg PO DAILY [facility] Last Admin: 05/27/18 07:53 Dose: 10 mg Magnesium Hydroxide (Milk Of Magnesia) 30 ml PO .PRN X 1 PRN PRN Reason: Constipation Last Admin: 05/16/18 09:32 Dose: 30 ml Melatonin (Melatonin) 3 mg PO QHS [facility] Last Admin: 05/26/18 20:19 Dose: 3 mg Metformin HCl (Glucophage) 500 mg PO BIDCM [facility] Last Admin: 05/27/18 07:53 Dose: 500 mg Nitroglycerin (Nitrostat) 0.4 mg SUBLINGUAL Q5M PRN PRN Reason: Chest Pain Oxycodone HCl (Oxyir) 5 - 10 mg PO Q4H PRN PRN PRN Reason: PAIN Last Admin: 05/27/18 06:06 Dose: 5 mg Senna/Docusate Sodium (Senokot-S, Samanta-Colace) 2 tablet PO BID [facility] Last Admin: 05/27/18 07:55 Dose: Not Given Tamsulosin HCl (Flomax) 0.4 mg PO 0830,1730 [facility] Last Admin: 05/27/18 09:50 Dose: 0.4 mg Medical Necessity - Tobacco Use Smoking Status: Never smoker Assessment/Plan 74 yr CM with PMH HTN, HLD, DM, CAD s/p stents, hypothyroidism, BPH, recent traumatic right distal fibula fracture s/p ORIF by Dr. Metcalf on 05/13/18, admitted to [facility] on 05/13/18 for debility s/p recent traumatic right distal fibula fracture s/p ORIF, for > 3 hrs therapy daily with a goal of returning home at or near his prior level of functional independence. Plan - PT for gait stability - OT for ADLs - Bowel protocol - Analgesics as needed - Right distal fibula fracture s/p ORIF- management and evaluation per orthopedic surgeon Dr. Metcalf's recommendations.Per patient he feels his symptoms of leg tightness above the cast is better since the cast has been loosened on Dr. Metcalf's recommendation. Will have Dr. Metcalf reevaluate and defer further management per orthopedics recommendations. - Left scrotal swelling- will consult General Surgery for further evaluation and management, denies any pain or tenderness in the scrotum. - HTN- on Lisinopril and Coreg. - DM- on Metformin - HLD- on Lipitor - CAD s/p stents- on ASA and Nitrostat PRN - Hypothyroidism- on Levothyroxine - BPH- on Tamsulosin - GI/DVT prophylaxis- on Lovenox - Fall precautions - Increase Flomax to .08mg daily - Discharge to TCU on Monday 05/28
--- NOTE | 2018-05-27 17:57 | PCM.PN.ORT ---
Subjective: Pt evaluated bedside. States he is feeling good and doing well in physical therapy. He has been better at staying NWB RLE. He states he does get some pain when his leg is dependent. Denies f/c/n/v/cp/ sob/calf pain Objective: RLE Exam: Vasc: minimal edema, CRF < 3 seconds, warm to warm and nontender with calf compression Neuro: light touch sensation intact MS: deferred secondary to surgery Derm: sutures intact, skin edges well approximated and with no SOI. Sutures removed without incident. - Physical Exam General: Alert, Cooperative Vital Signs Temp Pulse Resp BP Pulse Ox 97.8 F 87 12 120/71 95 05/27/18 07:45 05/27/18 07:45 05/27/18 07:45 05/27/18 07:45 05/27/18 07:45 Oxygen Flow Rate (L/min) 3 Oxygen Delivery Method Room Air Weight: 161 lb 9.581 oz Body Mass Index (BMI) 25.5 Finger Stick Blood Glucose 132 Intake and Output for Last 24 Hours 05/25/18 05/26/18 05/27/18 23:59 23:59 23:59 Intake Total 920 / 920 360 / 360 240 / 240 Balance 920 / 920 360 / 360 240 / 240 Medical Necessity - Tobacco Use Smoking Status: Never smoker Assessment/Plan 77 yo M s/p ORIF R lateral malleolus fx DOS 05/13/2018 -Pt evaluated at bedside -labs, studies and notes removed -Sutures removed without incident, multilayer compressive dressing and posterior splint re-applied, keep c/d/i -Will obtain new xrays of R ankle -Continue strict nonweightbearing RLE in posterior splint at all times except for ROM with PT -PT may begin gentle ROM of right ankle, no strengthening or weightbearing. Continue with gait training in posterior splint -Will see again in two weeks in TCU or in office if he is discharged. -Please call with questions
[2018-05-27 20:45] VITALS: BP 145/67; PULSE 93; RESP 16; TEMP 36.8; O2SAT 93; O2SAT 95
[2018-05-27] MEDS: Senna/Docusate Sodium 1 Tablet 2 TABLET PO (21:09)
[2018-05-27] MEDS: Atorvastatin Calcium 20 MG Tablet PO (21:10)
[2018-05-27] MEDS: MELATONIN 3 MG TABLET PO (21:10)
--- NOTE | 2018-05-28 04:30 | NURSING ---
REVIEWED AND AGREE WITH [employer] FIM AND HANDOFF CHARTING.
[2018-05-28] MEDS: Levothyroxine 75 MCG Tablet PO (06:20)
[2018-05-28] MEDS: Enoxaparin 40 MG/0.4 ML Syringe SC (06:20)
[2018-05-28 07:08] VITALS: BP 128/76; PULSE 89; RESP 12; TEMP 36.5; O2SAT 94
[2018-05-28] MEDS: Senna/Docusate Sodium 1 Tablet 2 TABLET PO (08:00)
[2018-05-28] MEDS: Lisinopril 5 MG Tablet PO (08:00)
[2018-05-28] MEDS: Cyanocobalamin 500 MCG Tablet 1000 MCG PO (08:00)
--- NOTE | 2018-05-28 08:00 | RAD_ITS ---
STUDY: X-RAY - RIGHT ANKLE REASON FOR EXAM: Male, 77 years old. The patient is status post ORIF of the distal fibula. TECHNIQUE: 3 view(s) and 4 images of the ankle. COMPARISON: Comparison is made with prior study dated May 13, 2018. FINDINGS: The patient is status post open reduction and internal fixation of the distal fibular fracture utilizing screws and sideplate fixation device. This is unchanged. Normal tibiotalar articulation and ankle mortise. Normal visualized talus and calcaneus. The visualized subtalar, talonavicular, calcaneocuboid and tarsal articulations are normal. Residual soft tissue swelling. RAD/Ankle min 3 Views IMPRESSION: Status post internal fixation of a distal fibular fracture. This is unchanged. Electronically Signed: Chace Monson MD at 9:26 EST Tel [phone], Service support ,
[2018-05-28] MEDS: Carvedilol 6.25 MG Tablet PO (08:01)
[2018-05-28] MEDS: Aspirin 81 MG TAB.CHEW PO (08:01)
[2018-05-28] MEDS: Tamsulosin HCl 0.4 MG Capsule PO (08:01)
[2018-05-28] MEDS: Calcium Carb/Vitamin D 1 TABLET Tablet PO (08:01)
[2018-05-28] MEDS: Loratadine 10 MG Tablet PO (08:01)
[2018-05-28] MEDS: oxyCODONE 5 MG Tablet PO (08:07)
--- NOTE | 2018-05-28 09:00 | PCM.RU.DC ---
Rehab Discharge Summary DATE OF ADMISSION: 05/13/18 DATE OF DISCHARGE: 05/28/18 - Rehab Diagnosis Right Ankle Fracture Subjective: Patient's sutures where removed yesterday afternoon by the Orthopedic surgeon, multilayer compressive dressing and posterior splint was re-applied, and is C/D/I. - Physical Exam General: Alert, Oriented x3, Cooperative HEENT: Atraumatic, PERRLA, EOMI, Normocephalic Neck: Supple, No JVD, Negative Carotid Bruits Lungs: Clear to auscultation, Normal air movement Cardiovascular: Regular rate, No murmurs Abdomen: Bowel Sounds Present, Soft, Non Tender Extremities: No edema, Capillary Refill Less than 3 Seconds, - - multilayer compressive dressing and posterior splint Skin: No rashes, No breakdown Musculoskeletal: No Tenderness to Palpation of Joints or Extremities Neurological: Cranial nerves II-XII grossly intact Psych/Mental Status: Alert and oriented to time, place, person, mood and affect Vital Signs Temp Pulse Resp BP Pulse Ox 97.7 F L 89 12 128/76 H 94 05/28/18 07:08 05/28/18 07:08 05/28/18 07:08 05/28/18 07:08 05/28/18 07:08 Oxygen Flow Rate (L/min) 3 Oxygen Delivery Method Room Air Weight: 73.4 kg Body Mass Index (BMI) 25.5 Finger Stick Blood Glucose 132 Intake and Output for Last 24 Hours 05/26/18 05/27/18 05/28/18 23:59 23:59 23:59 Intake Total 360 / 360 480 / 480 Balance 360 / 360 480 / 480 Active Medications Acetaminophen (Tylenol) 650 mg PO Q6H PRN PRN PRN Reason: MILD PAIN (1-3/10) Aspirin (Aspirin, Baby) 81 mg PO DAILY@0800 [facility] Last Admin: 05/28/18 08:01 Dose: 81 mg Atorvastatin Calcium (Lipitor) 20 mg PO QHS [facility] Last Admin: 05/27/18 21:10 Dose: 20 mg Bisacodyl (Dulcolax) 10 mg RECTAL .PRN X 1 PRN PRN Reason: Constipation Calcium/Vitamin D (Os-Curt 500mg + D) [facility] Last Admin: 05/28/18 08:01 Dose: 1 tablet Carvedilol (Coreg) 6.25 mg PO BID [facility] Last Admin: 05/28/18 08:01 Dose: 6.25 mg Cyanocobalamin (Vitamin B12) 1,000 mcg PO DAILY [facility] Last Admin: 05/28/18 08:00 Dose: 1,000 mcg Enoxaparin Sodium (Lovenox) 40 mg SC DAILY@0600 [facility] Last Admin: 05/28/18 06:20 Dose: 40 mg Levothyroxine Sodium (Synthroid) 75 mcg PO DAILY@0600 [facility] Last Admin: 05/28/18 06:20 Dose: 75 mcg Lisinopril (Zestril) 5 mg PO DAILY [facility] Last Admin: 05/28/18 08:00 Dose: 5 mg Loratadine (Claritin) 10 mg PO DAILY [facility] Last Admin: 05/28/18 08:01 Dose: 10 mg Magnesium Hydroxide (Milk Of Magnesia) 30 ml PO .PRN X 1 PRN PRN Reason: Constipation Last Admin: 05/16/18 09:32 Dose: 30 ml Melatonin (Melatonin) 3 mg PO QHS [facility] Last Admin: 05/27/18 21:10 Dose: 3 mg Metformin HCl (Glucophage) [facility] Last Admin: 05/28/18 08:01 Dose: 500 mg Nitroglycerin (Nitrostat) 0.4 mg SUBLINGUAL Q5M PRN PRN Reason: Chest Pain Oxycodone HCl (Oxyir) 5 - 10 mg PO Q4H PRN PRN PRN Reason: PAIN Last Admin: 05/28/18 08:07 Dose: 5 mg Senna/Docusate Sodium (Senokot-S, Samanta-Colace) 2 tablet PO BID [facility] Last Admin: 05/28/18 08:00 Dose: 2 tablet Tamsulosin HCl (Flomax) 0.4 mg PO 0830,1730 [facility] Last Admin: 05/28/18 08:01 Dose: 0.4 mg Discharge Diet: 2200 Calorie Control Diet Discharge Activity: May Not Drive, May not drive while taking narcotic pain medications., May Shower, Use Walker, - - may not Soak in a Tub bath until cleared by Orthopedic surgeon Weight Bearing Status: No weight bearing - Right Lower Extremity Call your doctor if your incision/area has: Sudden Increased Bleeding, Increased Pain/ Swelling, Increased Redness, Foul Smelling Discharge, Swelling at the incision site Call your doctor if you observe: Fever of 101 or Higher, Coldness, Increased Pain, Numbness or Tingling, Change in Color, Inability to urinate, Inability to have a bowel movement, Using more than one pad per hour, Shortness of breath, Dizziness, Fainting spells, Swelling in the ankles, Chest pain, Prolonged hiccoughing, Increased palpitations (irregular heartbeat), Calf discomfort, Uncontrolled pain Home Medications: Medications to take at Discharge Aspirin [Aspirin, Baby] 81 mg PO DAILY@0800 05/12/18 Carvedilol [Coreg (Beta Alla)] 6.25 mg PO BID 05/12/18 Cyanocobalamin (Vitamin B-12) [Vitamin B-12] 1,000 mcg PO DAILY 05/12/18 Levothyroxine Sodium [Levoxyl] 75 mcg PO DAILY 05/12/18 Metformin HCl [Glucophage] 500 mg PO BIDCM 05/12/18 Nitroglycerin [Nitrostat] 0.4 mg SUBLINGUAL Q5M PRN 05/12/18 Acetaminophen [Tylenol Tablet] 650 mg PO Q6H PRN PRN tablet 05/27/18 Atorvastatin Calcium [Lipitor] 20 mg PO QHS tablet 05/27/18 Calcium Carb/Vitamin D [Os-Curt 500MG + D] 1 tablet PO BIDCM tablet 05/27/18 Lisinopril [Zestril] 5 mg PO DAILY tablet 05/27/18 Loratadine [Claritin] 10 mg PO DAILY tablet 05/27/18 Melatonin 3 mg PO QHS tablet 05/27/18 Oxycodone [Oxyir] 5 - 10 mg PO Q4H PRN PRN 7 Days #21 tab 05/27/18 Tamsulosin HCl [Flomax] 0.4 mg PO 0830,1730 capsule 05/27/18 Gabapentin [Neurontin] 100 mg PO BIDCM capsule 05/28/18 Following Prescrptions Were Given to Patient: Oxycodone [Oxyir] 5 - 10 mg PO Q4H PRN PRN 7 Days #21 tab PRN Reason: Pain Primary Care Physician: Eduard Sánchez, ALISA-C [Primary Care Provider] - Disposition: Senior Living facility Minutes spent on discharge:: 40 Patient Condition:: Good Rehab Course Mr. Lerma is a 77-year-old handed white male who is previously healthy, who tripped causing a Vespa scooter to fall on his ankle approximately 6 weeks ago. For several weeks he delayed evaluation finally because of pain he underwent evaluation and was placed in a boot and a wheeled walker. It was followed as an outpatient but shown to be nonhealing therefore yesterday he underwent open reduction internal fixation performed by Dr. Cornelia chapin here at [facility] without complication. The patient says he did not sleep very well last night but this was due to positioning which she says was corrected. He has no other complaints, pain is controlled, no GI or complaints. He does have a history of diabetes hypertension and coronary artery disease status post stent in 2014 as well as a history of hypothyroidism. 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 His adult children live at home with him. While in the his other medical conditions were monitored. While in the he improved with therapy and gained strength. He is scheduled to go to TCU on Tuesday 05/29. Summary of Care: - PT for gait stability - OT for ADLs - Bowel protocol - Analgesics as needed - Right distal fibula fracture s/p ORIF- management and evaluation per orthopedic surgeon Dr. Metcalf's recommendations.Per patient he feels his symptoms of leg tightness above the cast is better since the cast has been loosened on Dr. Metcalf's recommendation. Will have Dr. Metcalf reevaluate and defer further management per orthopedics recommendations. - Left scrotal swelling- will consult General Surgery for further evaluation and management, denies any pain or tenderness in the scrotum. - HTN- on Lisinopril and Coreg. - DM- on Metformin - HLD- on Lipitor - CAD s/p stents- on ASA and Nitrostat PRN - Hypothyroidism- on Levothyroxine - BPH- on Tamsulosin - GI/DVT prophylaxis- on Lovenox - Fall precautions - Increase Flomax to .08mg daily - Discharge to TCU on Monday 05/28 Therapy course: With Physical therapy, he is standby assist to get to his feet, he is able to walk greater than 120 feet with walker and maintaining NWB at stand by assist. They have gone up one step at contact guard, this is somewhat hard given he has to hop and maintain his NWB status on the left side. He is able to get in and out of bed at supervision level. With Occupational therapy he is able to do a complete sponge bath and all his own personal care at Stand by to supervision level. He is stand by assist for getting to the bathroom. With Nursing his BP is stable on current medication, his pain is well controlled and he is sleeping good. The issue with swelling of his Scrotum has improved, he denies any pain when urinating, will increase his Flomax to .08mg and have him stand at the toilet to urinate instead of using the urinal. Meaningful Use Info Meaningful Use Diagnoses (Choose all that apply): None applicable
--- NOTE | 2018-05-28 09:04 | DS.PCM_ITS ---
Rehab Discharge Summary DATE OF ADMISSION: 05/13/18 DATE OF DISCHARGE: 05/28/18 - Rehab Diagnosis Right Ankle Fracture Subjective: Patient's sutures where removed yesterday afternoon by the Orthopedic surgeon, multilayer compressive dressing and posterior splint was re-applied, and is C/D/I. - Physical Exam General: Alert, Oriented x3, Cooperative HEENT: Atraumatic, PERRLA, EOMI, Normocephalic Neck: Supple, No JVD, Negative Carotid Bruits Lungs: Clear to auscultation, Normal air movement Cardiovascular: Regular rate, No murmurs Abdomen: Bowel Sounds Present, Soft, Non Tender Extremities: No edema, Capillary Refill Less than 3 Seconds, - - multilayer compressive dressing and posterior splint Skin: No rashes, No breakdown Musculoskeletal: No Tenderness to Palpation of Joints or Extremities Neurological: Cranial nerves II-XII grossly intact Psych/Mental Status: Alert and oriented to time, place, person, mood and affect Vital Signs Temp Pulse Resp BP Pulse Ox 97.7 F L 89 12 128/76 H 94 05/28/18 07:08 05/28/18 07:08 05/28/18 07:08 05/28/18 07:08 05/28/18 07:08 Oxygen Flow Rate (L/min) 3 Oxygen Delivery Method Room Air Weight: 73.4 kg Body Mass Index (BMI) 25.5 Finger Stick Blood Glucose 132 Intake and Output for Last 24 Hours 05/26/18 05/27/18 05/28/18 23:59 23:59 23:59 Intake Total 360 / 360 480 / 480 Balance 360 / 360 480 / 480 Active Medications Acetaminophen (Tylenol) 650 mg PO Q6H PRN PRN PRN Reason: MILD PAIN (1-3/10) Aspirin (Aspirin, Baby) 81 mg PO DAILY@0800 [facility] Last Admin: 05/28/18 08:01 Dose: 81 mg Atorvastatin Calcium (Lipitor) 20 mg PO QHS [facility] Last Admin: 05/27/18 21:10 Dose: 20 mg Bisacodyl (Dulcolax) 10 mg RECTAL .PRN X 1 PRN PRN Reason: Constipation Calcium/Vitamin D (Os-Curt 500mg + D) [facility] Last Admin: 05/28/18 08:01 Dose: 1 tablet Carvedilol (Coreg) 6.25 mg PO BID [facility] Last Admin: 05/28/18 08:01 Dose: 6.25 mg Cyanocobalamin (Vitamin B12) 1,000 mcg PO DAILY [facility] Last Admin: 05/28/18 08:00 Dose: 1,000 mcg Enoxaparin Sodium (Lovenox) 40 mg SC DAILY@0600 [facility] Last Admin: 05/28/18 06:20 Dose: 40 mg Levothyroxine Sodium (Synthroid) 75 mcg PO DAILY@0600 [facility] Last Admin: 05/28/18 06:20 Dose: 75 mcg Lisinopril (Zestril) 5 mg PO DAILY [facility] Last Admin: 05/28/18 08:00 Dose: 5 mg Loratadine (Claritin) 10 mg PO DAILY [facility] Last Admin: 05/28/18 08:01 Dose: 10 mg Magnesium Hydroxide (Milk Of Magnesia) 30 ml PO .PRN X 1 PRN PRN Reason: Constipation Last Admin: 05/16/18 09:32 Dose: 30 ml Melatonin (Melatonin) 3 mg PO QHS [facility] Last Admin: 05/27/18 21:10 Dose: 3 mg Metformin [facility] (Glucophage) [facility] Last Admin: 05/28/18 08:01 Dose: 500 mg Nitroglycerin (Nitrostat) 0.4 mg SUBLINGUAL Q5M PRN PRN Reason: Chest Pain Oxycodone HCl (Oxyir) 5 - 10 mg PO Q4H PRN PRN PRN Reason: PAIN Last Admin: 05/28/18 08:07 Dose: 5 mg Senna/Docusate Sodium (Senokot-S, Samanta-Colace) 2 tablet PO BID [facility] Last Admin: 05/28/18 08:00 Dose: 2 tablet Tamsulosin HCl (Flomax) 0.4 mg PO 0830,1730 [facility] Last Admin: 05/28/18 08:01 Dose: 0.4 mg Discharge Diet: 2200 Calorie Control Diet Discharge Activity: May Not Drive, May not drive while taking narcotic pain medications., May Shower, Use Walker, - - may not Soak in a Tub bath until cleared by Orthopedic surgeon Weight Bearing Status: No weight bearing - Right Lower Extremity Call your doctor if your incision/area has: Sudden Increased Bleeding, Increased Pain/ Swelling, Increased Redness, Foul Smelling Discharge, Swelling at the incision site Call your doctor if you observe: Fever of 101 or Higher, Coldness, Increased Pain, Numbness or Tingling, Change in Color, Inability to urinate, Inability to have a bowel movement, Using more than one pad per hour, Shortness of breath, Dizziness, Fainting spells, Swelling in the ankles, Chest pain, Prolonged hiccoughing, Increased palpitations (irregular heartbeat), Calf discomfort, Uncontrolled pain Home Medications: Medications to take at Discharge Aspirin [Aspirin, Baby] 81 mg PO DAILY@0800 05/12/18 Carvedilol [Coreg (Beta Alla)] 6.25 mg PO BID 05/12/18 Cyanocobalamin (Vitamin B-12) [Vitamin B-12] 1,000 mcg PO DAILY 05/12/18 Levothyroxine Sodium [Levoxyl] 75 mcg PO DAILY 05/12/18 Metformin HCl [Glucophage] 500 mg PO BIDCM 05/12/18 Nitroglycerin [Nitrostat] 0.4 mg SUBLINGUAL Q5M PRN 05/12/18 Acetaminophen [Tylenol Tablet] 650 mg PO Q6H PRN PRN tablet 05/27/18 Atorvastatin Calcium [Lipitor] 20 mg PO QHS tablet 05/27/18 Calcium Carb/Vitamin D [Os-Curt 500MG + D] 1 tablet PO BIDCM tablet 05/27/18 Lisinopril [Zestril] 5 mg PO DAILY tablet 05/27/18 Loratadine [Claritin] 10 mg PO DAILY tablet 05/27/18 Melatonin 3 mg PO QHS tablet 05/27/18 Oxycodone [Oxyir] 5 - 10 mg PO Q4H PRN PRN 7 Days #21 tab 05/27/18 Tamsulosin HCl [Flomax] 0.4 mg PO 0830,1730 capsule 05/27/18 Gabapentin [Neurontin] 100 mg PO BIDCM capsule 05/28/18 Following Prescrptions Were Given to Patient: Oxycodone [Oxyir] 5 - 10 mg PO Q4H PRN PRN 7 Days #21 tab PRN Reason: Pain Primary Care Physician: Eduard Sánchez, ALISA-C [Primary Care Provider] - Disposition: Jail facility Minutes spent on discharge:: 40 Patient Condition:: Good Rehab Course Mr. Lerma is a 77-year-old handed white male who is previously healthy, who tripped causing a Vespa scooter to fall on his ankle approximately 6 weeks ago. For several weeks he delayed evaluation finally because of pain he underwent evaluation and was placed in a boot and a wheeled walker. It was followed as an outpatient but shown to be nonhealing therefore yesterday he underwent open reduction internal fixation performed by Dr. Cornelia chapin here at [facility] without complication. The patient says he did not sleep very well last night but this was due to positioning which she says was corrected. He has no other complaints, pain is controlled, no GI or complaints. He does have a history of diabetes hypertension and coronary artery disease status post stent in 2014 as well as a history of hypothyroidism. 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 His adult children live at home with him. While in the his other medical conditions were monitored. While in the he improved with therapy and gained strength. He is scheduled to go to TCU on Tuesday 05/29. Summary of Care: - PT for gait stability - OT for ADLs - Bowel protocol - Analgesics as needed - Right distal fibula fracture s/p ORIF- management and evaluation per orthopedic surgeon Dr. Metcalf's recommendations.Per patient he feels his symptoms of leg tightness above the cast is better since the cast has been loosened on Dr. Metcalf's recommendation. Will have Dr. Metcalf reevaluate and defer further management per orthopedics recommendations. - Left scrotal swelling- will consult General Surgery for further evaluation and management, denies any pain or tenderness in the scrotum. - HTN- on Lisinopril and Coreg. - DM- on Metformin - HLD- on Lipitor - CAD s/p stents- on ASA and Nitrostat PRN - Hypothyroidism- on Levothyroxine - BPH- on Tamsulosin - GI/DVT prophylaxis- on Lovenox - Fall precautions - Increase Flomax to .08mg daily - Discharge to TCU on Monday 05/28 Therapy course: With Physical therapy, he is standby assist to get to his feet, he is able to walk greater than 120 feet with walker and maintaining NWB at stand by assist. They have gone up one step at contact guard, this is somewhat hard given he has to hop and maintain his NWB status on the left side. He is able to get in and out of bed at supervision level. With Occupational therapy he is able to do a complete sponge bath and all his own personal care at Stand by to supervision level. He is stand by assist for getting to the bathroom. With Nursing his BP is stable on current medication, his pain is well controlled and he is sleeping good. The issue with swelling of his Scrotum has improved, he denies any pain when urinating, will increase his Flomax to .08mg and have him stand at the toilet to urinate instead of using the urinal. Meaningful Use Info Meaningful Use Diagnoses (Choose all that apply): None applicable
--- NOTE | 2018-05-28 09:10 | NURSING ---
Called report to [facility], TCU
--- NOTE | 2018-05-28 10:43 | PCM.DC ---
You will use the following diet at home:: Regular, Calorie/Carbohydrate Controlled (specify 1200, 1400, etc) Your food should be the consistency of: Regular Your liquids should be the consistency of: Regular/Thin Discharge Activity: May Not Drive, May not drive while taking narcotic pain medications., May Shower, Use Walker, - - may not Soak in a Tub bath until cleared by Orthopedic surgeon Weight Bearing Status: No weight bearing - Right Lower Extremity Call your doctor if your incision/area has: Sudden Increased Bleeding, Increased Pain/ Swelling, Increased Redness, Foul Smelling Discharge, Swelling at the incision site Call your doctor if you observe: Fever of 101 or Higher, Coldness, Increased Pain, Numbness or Tingling, Change in Color, Inability to urinate, Inability to have a bowel movement, Using more than one pad per hour, Shortness of breath, Dizziness, Fainting spells, Swelling in the ankles, Chest pain, Prolonged hiccoughing, Increased palpitations (irregular heartbeat), Calf discomfort, Uncontrolled pain Allergies/Adverse Reactions: Allergies No Known Allergies Allergy (Verified 11/22/14 21:08) Medications to take at Discharge Aspirin [Aspirin, Baby] 81 mg PO DAILY@0800 05/12/18 Carvedilol [Coreg (Beta Alla)] 6.25 mg PO BID 05/12/18 Cyanocobalamin (Vitamin B-12) [Vitamin B-12] 1,000 mcg PO DAILY 05/12/18 Levothyroxine Sodium [Levoxyl] 75 mcg PO DAILY 05/12/18 Metformin HCl [Glucophage] 500 mg PO BIDCM 05/12/18 Nitroglycerin [Nitrostat] 0.4 mg SUBLINGUAL Q5M PRN 05/12/18 Acetaminophen [Tylenol Tablet] 650 mg PO Q6H PRN PRN tablet 05/27/18 Atorvastatin Calcium [Lipitor] 20 mg PO QHS tablet 05/27/18 Calcium Carb/Vitamin D [Os-Curt 500MG + D] 1 tablet PO BIDCM tablet 05/27/18 Lisinopril [Zestril] 5 mg PO DAILY tablet 05/27/18 Loratadine [Claritin] 10 mg PO DAILY tablet 05/27/18 Melatonin 3 mg PO QHS tablet 05/27/18 Oxycodone [Oxyir] 5 - 10 mg PO Q4H PRN PRN 7 Days #21 tab 05/27/18 Tamsulosin HCl [Flomax] 0.4 mg PO 0830,1730 capsule 05/27/18 Gabapentin [Neurontin] 100 mg PO BIDCM capsule 05/28/18 The following prescriptions were given: Oxycodone [Oxyir] 5 - 10 mg PO Q4H PRN PRN 7 Days #21 tab PRN Reason: Pain Primary Care Physician: Eduard Sánchez, [employer]CH[employer]ICIAN-C [Primary Care Provider] - Test Results: Test results from this visit will be discussed in further detail at your follow-up appointment, if applicable. Proposed Discharge Date: 05/28/18
[2018-05-28 10:44] VITALS: BP 128/76; PULSE 89; RESP 12; TEMP 36.5; O2SAT 94
[2018-05-28] MEDS: Gabapentin 100 MG Capsule PO (13:41)
== END 2018-05-28 13:57 | disposition skilled nursing facility (03) | DRG 561 ==
PROVIDERS: Hospitalist; Psychiatry & Neurology Neurology; Admitting Provider Psychiatry & Neurology Neurology; Family Provider Nurse Practitioner Family; PCP Nurse Practitioner Family; Referring Provider Psychiatry & Neurology Neurology; Visit Provider Family Medicine
DX: S82.61XD Displaced fracture of lateral malleolus of right fibula, subsequent encounter for closed fracture with routine healing (principal); W01.0XXD Fall on same level from slipping, tripping and stumbling without subsequent striking against object, subsequent encounter; E11.9 Type 2 diabetes mellitus without complications; I10 Essential (primary) hypertension; I25.10 Atherosclerotic heart disease of native coronary artery without angina pectoris; E03.9 Hypothyroidism, unspecified; Z95.5 Presence of coronary angioplasty implant and graft; N40.0 Benign prostatic hyperplasia without lower urinary tract symptoms; K59.00 Constipation, unspecified; E78.5 Hyperlipidemia, unspecified; N50.89 Other specified disorders of the male genital organs
CPT/HCPCS: 36415; 73610; 80053; 82962; 85025; 97110; 97116; 97163; 97166; 97530; 97535; 97802

== ENCOUNTER 2018-05-28 14:35 | Inpatient (IN) | payer MEDICARE, OTHER, SELFPAY ==
[2018-05-13 17:31] VITALS: BMI 25.5
--- NOTE | 2018-05-28 15:09 | NURSING ---
Pt admitted to room 20 from inpatient rehab. Oriented to room and call light system explained.
[2018-05-28 15:18] VITALS: BMI 24.5
[2018-05-28 15:19] VITALS: BMI 24.6
[2018-05-28 15:58] VITALS: BP 102/69; PULSE 88; RESP 22; TEMP 35.9; O2SAT 94
[2018-05-28] MEDS: Carvedilol 6.25 MG Tablet PO (17:14)
[2018-05-28] MEDS: Tamsulosin HCl 0.4 MG Capsule PO (17:15)
[2018-05-28] MEDS: Gabapentin 100 MG Capsule PO (17:15)
[2018-05-28 20:00] VITALS: BP 110/71; PULSE 92; RESP 19; TEMP 36.1; O2SAT 98
--- NOTE | 2018-05-28 20:29 | PCM.HP.STD ---
Problem List (1) Closed right ankle fracture Status: Acute (2) Coronary artery disease Status: Chronic (3) Vitamin B12 deficiency Status: Chronic (4) Hypothyroidism Status: Chronic (5) Diabetes mellitus Status: Chronic (6) Hyperlipidemia Status: Chronic (7) BPH (benign prostatic hyperplasia) Status: Chronic History of Present Illness Date of Admission: 05/28/18 Chief Complaint: Here for rehabilitation, strengthening, prior to discharge home with family. The patient is a 77 year old Male with below past medical history admitted from rehab unit. Right ankle fracture involving 250cc Vespa scooter not healing. 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 05/12/2018 Open reduction internal fixation with Dr. Salazar. Post-operative course unremarkable. Patient did well with therapy on RU. Candelario removed per Dr. Salazar, multilayer compressive dressing, posterior splint reapplied. 05/28/2018 Admit to TCU with debility, here for rehabilitation, strengthening, prior to discharge home with family. Daughter going to nursing school, she is not home to care for Dad during the day. Past Medical History Past Medical History (Chronic Problems): Chronic Problems Coronary artery disease (Chronic) Vitamin B12 deficiency (Chronic) Hypothyroidism (Chronic) Diabetes mellitus (Chronic) Hyperlipidemia (Chronic) BPH (benign prostatic hyperplasia) (Chronic) Allergies No Known Allergies Allergy (Verified 11/22/14 21:08) Home Medications: Ambulatory Orders Medication Instructions Recorded Aspirin [Aspirin, Baby] 81 mg PO DAILY@0800 05/12/18 Carvedilol [Coreg (Beta Alla)] 6.25 mg PO BID 05/12/18 Cyanocobalamin (Vitamin B-12) 1,000 mcg PO DAILY 05/12/18 [Vitamin B-12] Levothyroxine Sodium [Levoxyl] 75 mcg PO DAILY 05/12/18 Metformin HCl [Glucophage] 500 mg PO BIDCM 05/12/18 Nitroglycerin [Nitrostat] 0.4 mg SUBLINGUAL Q5M PRN 05/12/18 Acetaminophen [Tylenol Tablet] 650 mg PO Q6H PRN PRN tablet 05/27/18 Oxycodone [Oxyir] 5 - 10 mg PO Q4H PRN PRN 7 Days 05/27/18 #21 tab Atorvastatin Calcium [Lipitor] 20 mg PO QHS 05/28/18 Calcium Carb/Vitamin D [Os-Curt 1 tablet PO BIDCM 05/28/18 500MG + D] Gabapentin [Neurontin] 100 mg PO BIDCM 05/28/18 Lisinopril [Zestril] 5 mg PO DAILY 05/28/18 Loratadine [Claritin] 10 mg PO DAILY 05/28/18 Melatonin 3 mg PO QHS 05/28/18 Tamsulosin HCl [Flomax] 0.4 mg PO 0830,1730 05/28/18 Surgical History: angioplasty - with stent. Psychiatric History: No pertinent psych hx Lives: With Family Smoking Status: Never smoker Tobacco Use: Non-smoker Alcohol: None Drugs: None - *Family History Maternal History Items: No pertinent history Paternal History Items: No pertinent history Review of Systems Constitutional: Denies: Chills, Fever, Weight Change HEENT: Denies: Head Aches, Sinus Congestion, Sinus Drainage Cardiovascular: Denies: Chest Pain, Palpitations Respiratory: Denies: Cough, Shortness of breath at rest, Sputum production Gastrointestinal: Denies: Abdominal Pain, Nausea, Vomiting Genitourinary: Denies: Dysuria Musculoskeletal: Denies: Joint Pain, Joint Tenderness Skin: Denies: Rash, Wounds Neurological: Denies: Numbness, Tingling, Focal weakness Psychiatric: Denies: Anxiety, Depression, Homicidal Ideations, Suicidal Ideations Hematologic/ Lymphatic: Denies: Easy Bruising, Easy Bleeding VTE Information - Inpt Only VTE Present on Admission: No VTE Mechan Device Prophylaxis: Knee High KATRINA Hose VTE Pharm Prophylaxis ordered?: Yes Patient Problems: Active and Suspected Problems Closed right ankle fracture (Acute) - Physical Exam General: Alert, Oriented x3, Cooperative HEENT: Atraumatic, PERRLA, EOMI, Normocephalic Neck: Supple, No JVD, Negative Carotid Bruits Lungs: Clear to auscultation, Normal air movement Cardiovascular: Regular rate, No murmurs Abdomen: Bowel Sounds Present, Soft, Non Tender Extremities: No edema, Capillary Refill Less than 3 Seconds, - - Right lower extremity with compressive dressing, posterior splint. Skin: No rashes, No breakdown Musculoskeletal: No Tenderness to Palpation of Joints or Extremities Neurological: Cranial nerves II-XII grossly intact Psych/Mental Status: Normal Affect, Appropriate Vital Signs Temp Pulse Resp BP Pulse Ox 96.7 F L 88 22 H 102/69 94 05/28/18 15:58 05/28/18 15:58 05/28/18 15:58 05/28/18 15:58 05/28/18 15:58 Oxygen Delivery Method Room Air Weight: 73.5 kg Body Mass Index (BMI) 24.5 Finger Stick Blood Glucose 132 Intake and Output for Last 24 Hours 05/26/18 05/27/18 05/28/18 23:59 23:59 23:59 Intake Total 240 / 240 Balance 240 / 240 Assessment/Plan All Active Problems Closed right ankle fracture (Acute) 77 year old male with below past medical history hospitalized for ORIF right ankle fracture 05/12/[address] Salazar, admitted to for therapy, now stepping down to TCU with debility, here for rehabilitation, strengthening, prior to discharge home with family. Debility - PT/OT. Pain - Tylenol 1000MG Q6H PRN mild pain, Oxycodone 10MG Q4H PRN moderate pain. Bowel - Miralax 17GM daily, Senna/colace 2 tablets BID, Dulcolax 10MG PO daily PRN. Pneumonia vaccination - Administer Prevnar 13 and/or Pneumovax 23 as necessary. DVT prophylaxis - Lovenox 40MG SC daily. Coronary Artery Disease - Coreg 6.25MG BID, Lisinopril 5MG daily, Aspirin 81MG daily, NTG 0.4MG SL Q5M PRN. Hyperlipidemia - Atorvastatin 20MG QHS. Calcium deficiency - Oscal 500MG BID. Vitamin B12 deficiency - B12 1000MCG po daily Neuropathic pain - Gabapentin 100MG BID. Hypothyroidism - Levothyroxine 75MCG daily. Allergic Rhinitis - Loratadine 10MG daily. Insomnia - Melatonin 3MG QHS. Diabetes Mellitus II - Metformin 500MG BID, monitor glucose. BPH - Tamsulosin 0.4MG BID.
--- NOTE | 2018-05-28 20:35 | HP.PCM_ITS ---
Problem List (1) Closed right ankle fracture Status: Acute (2) Coronary artery disease Status: Chronic (3) Vitamin B12 deficiency Status: Chronic (4) Hypothyroidism Status: Chronic (5) Diabetes mellitus Status: Chronic (6) Hyperlipidemia Status: Chronic (7) BPH (benign prostatic hyperplasia) Status: Chronic History of Present Illness Date of Admission: 05/28/18 Chief Complaint: Here for rehabilitation, strengthening, prior to discharge home with family. The patient is a 77 year old Male with below past medical history admitted from rehab unit. Right ankle fracture involving 250cc Vespa scooter not healing. 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 05/12/2018 Open reduction internal fixation with Dr. Salazar. Post-operative course unremarkable. Patient did well with therapy on RU. Candelario removed per Dr. Salazar, multilayer compressive dressing, posterior splint reapplied. 05/28/2018 Admit to TCU with debility, here for rehabilitation, strengthening, prior to discharge home with family. Daughter going to nursing school, she is not home to care for Dad during the day. Past Medical History Past Medical History (Chronic Problems): Chronic Problems Coronary artery disease (Chronic) Vitamin B12 deficiency (Chronic) Hypothyroidism (Chronic) Diabetes mellitus (Chronic) Hyperlipidemia (Chronic) BPH (benign prostatic hyperplasia) (Chronic) Allergies No Known Allergies Allergy (Verified 11/22/14 21:08) Home Medications: Ambulatory Orders Medication Instructions Recorded Aspirin [Aspirin, Baby] 81 mg PO DAILY@0800 05/12/18 Carvedilol [Coreg (Beta Alla)] 6.25 mg PO BID 05/12/18 Cyanocobalamin (Vitamin B-12) 1,000 mcg PO DAILY 05/12/18 [Vitamin B-12] Levothyroxine Sodium [Levoxyl] 75 mcg PO DAILY 05/12/18 Metformin HCl [Glucophage] 500 mg PO BIDCM 05/12/18 Nitroglycerin [Nitrostat] 0.4 mg SUBLINGUAL Q5M PRN 05/12/18 Acetaminophen [Tylenol Tablet] 650 mg PO Q6H PRN PRN tablet 05/27/18 Oxycodone [Oxyir] 5 - 10 mg PO Q4H PRN PRN 7 Days 05/27/18 #21 tab Atorvastatin Calcium [Lipitor] 20 mg PO QHS 05/28/18 Calcium Carb/Vitamin D [Os-Curt 1 tablet PO BIDCM 05/28/18 500MG + D] Gabapentin [Neurontin] 100 mg PO BIDCM 05/28/18 Lisinopril [Zestril] 5 mg PO DAILY 05/28/18 Loratadine [Claritin] 10 mg PO DAILY 05/28/18 Melatonin 3 mg PO QHS 05/28/18 Tamsulosin HCl [Flomax] 0.4 mg PO 0830,1730 05/28/18 Surgical History: angioplasty - with stent. Psychiatric History: No pertinent psych hx Lives: With Family Smoking Status: Never smoker Tobacco Use: Non-smoker Alcohol: None Drugs: None - *Family History Maternal History Items: No pertinent history Paternal History Items: No pertinent history Review of Systems Constitutional: Denies: Chills, Fever, Weight Change HEENT: Denies: Head Aches, Sinus Congestion, Sinus Drainage Cardiovascular: Denies: Chest Pain, Palpitations Respiratory: Denies: Cough, Shortness of breath at rest, Sputum production Gastrointestinal: Denies: Abdominal Pain, Nausea, Vomiting Genitourinary: Denies: Dysuria Musculoskeletal: Denies: Joint Pain, Joint Tenderness Skin: Denies: Rash, Wounds Neurological: Denies: Numbness, Tingling, Focal weakness Psychiatric: Denies: Anxiety, Depression, Homicidal Ideations, Suicidal Ideations Hematologic/ Lymphatic: Denies: Easy Bruising, Easy Bleeding VTE Information - Inpt Only VTE Present on Admission: No VTE Mechan Device Prophylaxis: Knee High KATRINA Hose VTE Pharm Prophylaxis ordered?: Yes Patient Problems: Active and Suspected Problems Closed right ankle fracture (Acute) - Physical Exam General: Alert, Oriented x3, Cooperative HEENT: Atraumatic, PERRLA, EOMI, Normocephalic Neck: Supple, No JVD, Negative Carotid Bruits Lungs: Clear to auscultation, Normal air movement Cardiovascular: Regular rate, No murmurs Abdomen: Bowel Sounds Present, Soft, Non Tender Extremities: No edema, Capillary Refill Less than 3 Seconds, - - Right lower extremity with compressive dressing, posterior splint. Skin: No rashes, No breakdown Musculoskeletal: No Tenderness to Palpation of Joints or Extremities Neurological: Cranial nerves II-XII grossly intact Psych/Mental Status: Normal Affect, Appropriate Vital Signs Temp Pulse Resp BP Pulse Ox 96.7 F L 88 22 H 102/69 94 05/28/18 15:58 05/28/18 15:58 05/28/18 15:58 05/28/18 15:58 05/28/18 15:58 Oxygen Delivery Method Room Air Weight: 73.5 kg Body Mass Index (BMI) 24.5 Finger Stick Blood Glucose 132 Intake and Output for Last 24 Hours 05/26/18 05/27/18 05/28/18 23:59 23:59 23:59 Intake Total 240 / 240 Balance 240 / 240 Assessment/Plan All Active Problems Closed right ankle fracture (Acute) 77 year old male with below past medical history hospitalized for ORIF right ankle fracture 05/12/[address] Salazar, admitted to for therapy, now stepping down to TCU with debility, here for rehabilitation, strengthening, prior to discharge home with family. * Debility - PT/OT. * Pain - Tylenol 1000MG Q6H PRN mild pain, Oxycodone 10MG Q4H PRN moderate pain. * Bowel - Miralax 17GM daily, Senna/colace 2 tablets BID, Dulcolax 10MG PO daily PRN. * Pneumonia vaccination - Administer Prevnar 13 and/or Pneumovax 23 as necessary. * DVT prophylaxis - Lovenox 40MG SC daily. * Coronary Artery Disease - Coreg 6.25MG BID, Lisinopril 5MG daily, Aspirin 81MG daily, NTG 0.4MG SL Q5M PRN. * Hyperlipidemia - Atorvastatin 20MG QHS. * Calcium deficiency - Oscal 500MG BID. * Vitamin B12 deficiency - B12 1000MCG po daily * Neuropathic pain - Gabapentin 100MG BID. * Hypothyroidism - Levothyroxine 75MCG daily. * Allergic Rhinitis - Loratadine 10MG daily. * Insomnia - Melatonin 3MG QHS. * Diabetes Mellitus II - Metformin 500MG BID, monitor glucose. * BPH - Tamsulosin 0.4MG BID.
[2018-05-28] MEDS: oxyCODONE 5 MG Tablet PO (20:45)
[2018-05-28] MEDS: MELATONIN 3 MG TABLET PO (20:45)
[2018-05-28] MEDS: Atorvastatin Calcium 20 MG Tablet PO (20:45)
[2018-05-28] MEDS: Calcium Carb/Vitamin D 1 TABLET Tablet PO (20:45)
[2018-05-28] MEDS: Menthol/Lanolin/Calamine/Znox 113 GM Tube 1 APPLIC TOPICAL (21:38)
[2018-05-29] MEDS: Menthol/Lanolin/Calamine/Znox 113 GM Tube 1 APPLIC TOPICAL ×2 (04:41→20:40)
[2018-05-29] MEDS: Levothyroxine 75 MCG Tablet PO (04:41)
[2018-05-29] MEDS: Senna/Docusate Sodium 1 Tablet 2 TABLET PO ×2 (04:41→16:27)
[2018-05-29] MEDS: Cyanocobalamin 500 MCG Tablet 1000 MCG PO (04:41)
[2018-05-29 06:10] LABS: Absolute Lymphocyte Count 1.78 X10^3/ul (0.83-4.51); Absolute Neutrophil Count 4.7 X10^3/uL (2.0-7.7); Basophil# 0.03 X10^3/uL; Basophil% 0.4 % (0-1); Eosinophil# 0.27 X10^3/uL; Eosinophils% 3.7 % (0-5); Hematocrit 36.5 % (40-54); Hemoglobin 11.8 g/dl (13.0-16.5); Lymphocyte # 1.78 X10^3/ul (4.0); Lymphocyte % 24.3 % (19-41); Mean Corp Hgb Conc 32.3 g/gl (32-36); Mean Corpuscular Hgb 29.1 pg (27.0-32.0); Mean Corpuscular Volume 90.1 fL (80-94); Mean Platelet Vol. 10.4 fl (6.2-12.0); Monocyte# 0.46 X10^3/uL; Monocyte% 6.3 % (0-10); Neutrophil # 4.69 X10^3/uL (2.7-7.7); Neutrophil % 63.9 % (47-70); Platelet Count 288 K/mm3 (150-450); RBC Distribution Width CV 12.4 % (11.6-14.6); Red Blood Count 4.05 M/mm3 (4.6-6.2); White Blood Count 7.3 K/mm3 (4.4-11.0)
[2018-05-29 06:36] LABS: POSITIVE COUNT NO; POSITIVE DIFFERENTIAL NO; POSITIVE MORPHOLOGY NO
[2018-05-29 06:43] LABS: Anion Gap 5 (5-15); BUN 16 mg/dL (7-18); BUN/Creat Ratio 19.3 RATIO (10-20); Calcium,Total 8.3 mg/dL (8.5-10.1); Chloride 103 mmol/L (98-107); Creatinine, Serum 0.83 mg/dL (0.70-1.30); EST Glomerular Filtration Rate 95 mL/min (>60); Est Glom Filt Rate - Afr Amer 115 mL/min (>60); Estimated Creatinine Clearance 72.11 ml/min; Glucose 121 mg/dL (74-106); Potassium 4.4 mmol/L (3.5-5.1); Sodium Level 137 mmol/L (136-145)
[2018-05-29] MEDS: Acetaminophen 500 MG Tablet 1000 MG PO ×2 (08:08→14:23)
[2018-05-29] MEDS: Lisinopril 5 MG Tablet PO (08:09)
[2018-05-29] MEDS: Calcium Carb/Vitamin D 1 TABLET Tablet PO ×2 (08:09→16:30)
[2018-05-29] MEDS: Gabapentin 100 MG Capsule PO ×2 (08:09→16:27)
[2018-05-29] MEDS: Loratadine 10 MG Tablet PO (08:09)
[2018-05-29] MEDS: Tamsulosin HCl 0.4 MG Capsule PO ×2 (08:09→16:26)
[2018-05-29] MEDS: Carvedilol 6.25 MG Tablet PO ×2 (08:09→20:38)
[2018-05-29] MEDS: Aspirin 81 MG TAB.CHEW PO (08:10)
[2018-05-29] MEDS: Enoxaparin 40 MG/0.4 ML Syringe SC (08:10)
[2018-05-29] MEDS: Tuberculin,Purif.prot.deriv. 50 TU/ML Vial 5 ML ID (10:35)
[2018-05-29 15:12] VITALS: BP 124/62; PULSE 90; RESP 20; TEMP 37.1; O2SAT 95
[2018-05-29] MEDS: oxyCODONE 5 MG Tablet 10 MG PO ×2 (16:25→20:38)
[2018-05-29] MEDS: MELATONIN 3 MG TABLET PO (20:38)
[2018-05-29] MEDS: Atorvastatin Calcium 20 MG Tablet PO (20:38)
[2018-05-30] MEDS: oxyCODONE 5 MG Tablet 10 MG PO ×2 (01:11→23:12)
[2018-05-30] MEDS: Levothyroxine 75 MCG Tablet PO (06:20)
[2018-05-30] MEDS: Enoxaparin 40 MG/0.4 ML Syringe SC (06:20)
[2018-05-30] MEDS: Cyanocobalamin 500 MCG Tablet 1000 MCG PO (06:20)
[2018-05-30] MEDS: Senna/Docusate Sodium 1 Tablet 2 TABLET PO ×2 (06:20→16:16)
[2018-05-30] MEDS: Menthol/Lanolin/Calamine/Znox 113 GM Tube 1 APPLIC TOPICAL ×2 (06:22→20:38)
[2018-05-30] MEDS: Loratadine 10 MG Tablet PO (08:11)
[2018-05-30] MEDS: Calcium Carb/Vitamin D 1 TABLET Tablet PO ×2 (08:11→16:16)
[2018-05-30] MEDS: Carvedilol 6.25 MG Tablet PO ×2 (08:11→20:37)
[2018-05-30] MEDS: Tamsulosin HCl 0.4 MG Capsule PO ×2 (08:11→16:16)
[2018-05-30] MEDS: Aspirin 81 MG TAB.CHEW PO (08:11)
[2018-05-30] MEDS: Gabapentin 100 MG Capsule PO ×2 (08:11→16:16)
[2018-05-30] MEDS: Lisinopril 5 MG Tablet PO (08:12)
[2018-05-30 08:13] VITALS: BP 152/70; PULSE 84
[2018-05-30] MEDS: Polyethylene Glycol 3350 17 GM PACKET PO (13:01)
[2018-05-30 15:28] VITALS: BP 108/71; PULSE 90; RESP 16; TEMP 35.7; O2SAT 96
[2018-05-30] MEDS: MELATONIN 3 MG TABLET PO (20:37)
[2018-05-30] MEDS: Atorvastatin Calcium 20 MG Tablet PO (20:37)
[2018-05-31] MEDS: Senna/Docusate Sodium 1 Tablet 2 TABLET PO ×2 (04:35→17:23)
[2018-05-31] MEDS: Levothyroxine 75 MCG Tablet PO (04:35)
[2018-05-31] MEDS: Cyanocobalamin 500 MCG Tablet 1000 MCG PO (04:35)
[2018-05-31] MEDS: Polyethylene Glycol 3350 17 GM PACKET PO (04:36)
[2018-05-31] MEDS: Enoxaparin 40 MG/0.4 ML Syringe SC (04:37)
[2018-05-31] MEDS: Menthol/Lanolin/Calamine/Znox 113 GM Tube 1 APPLIC TOPICAL ×2 (04:38→19:52)
[2018-05-31] MEDS: Carvedilol 6.25 MG Tablet PO ×2 (08:45→19:51)
[2018-05-31] MEDS: Loratadine 10 MG Tablet PO (08:45)
[2018-05-31] MEDS: Tamsulosin HCl 0.4 MG Capsule PO ×2 (08:45→17:24)
[2018-05-31] MEDS: Gabapentin 100 MG Capsule PO ×2 (08:46→17:24)
[2018-05-31] MEDS: Calcium Carb/Vitamin D 1 TABLET Tablet PO ×2 (08:46→17:24)
[2018-05-31] MEDS: Lisinopril 5 MG Tablet PO (08:46)
[2018-05-31] MEDS: Aspirin 81 MG TAB.CHEW PO (08:46)
[2018-05-31] MEDS: oxyCODONE 5 MG Tablet 10 MG PO ×2 (08:54→22:07)
[2018-05-31 15:51] VITALS: BP 134/90; PULSE 84; RESP 18; TEMP 36.4; O2SAT 95
--- NOTE | 2018-05-31 17:25 | PCM.CONS.GEN ---
Reason for Consult Date of Consultation: 05/31/18 Reason for Consultation: s/p R ORIF ankle fx History of Present Illness: The patient is a 77 year old M who is known to me, s/p R ORIF ankle fracture DOS 05/13/18. [] Past Medical History Past Medical History (Chronic Problems): Chronic Problems Coronary artery disease (Chronic) Vitamin B12 deficiency (Chronic) Hypothyroidism (Chronic) Diabetes mellitus (Chronic) Hyperlipidemia (Chronic) BPH (benign prostatic hyperplasia) (Chronic) Allergies No Known Allergies Allergy (Verified 11/22/14 21:08) Home Medications: Ambulatory Orders Medication Instructions Recorded Aspirin [Aspirin, Baby] 81 mg PO DAILY@0800 05/12/18 Carvedilol [Coreg (Beta Alla)] 6.25 mg PO BID 05/12/18 Cyanocobalamin (Vitamin B-12) 1,000 mcg PO DAILY 05/12/18 [Vitamin B-12] Levothyroxine Sodium [Levoxyl] 75 mcg PO DAILY 05/12/18 Metformin HCl [Glucophage] 500 mg PO BIDCM 05/12/18 Nitroglycerin [Nitrostat] 0.4 mg SUBLINGUAL Q5M PRN 05/12/18 Acetaminophen [Tylenol Tablet] 650 mg PO Q6H PRN PRN tablet 05/27/18 Oxycodone [Oxyir] 5 - 10 mg PO Q4H PRN PRN 7 Days 05/27/18 #21 tab Atorvastatin Calcium [Lipitor] 20 mg PO QHS 05/28/18 Calcium Carb/Vitamin D [Os-Curt 1 tablet PO BIDCM 05/28/18 500MG + D] Gabapentin [Neurontin] 100 mg PO BIDCM 05/28/18 Lisinopril [Zestril] 5 mg PO DAILY 05/28/18 Loratadine [Claritin] 10 mg PO DAILY 05/28/18 Melatonin 3 mg PO QHS 05/28/18 Tamsulosin HCl [Flomax] 0.4 mg PO 0830,1730 05/28/18 Surgical History: angioplasty - with stent. Psychiatric History: No pertinent psych hx Lives: With Family Smoking Status: Never smoker Tobacco Use: Non-smoker Alcohol: None Drugs: None - *Family History Maternal History Items: No pertinent history Paternal History Items: No pertinent history Patient Problems: Active and Suspected Problems Closed right ankle fracture (Acute) Subjective: Pt reports he is doing well since transferring to the TCU. Has had some pain to his RLE, more so at night and is able to take pain medication for this with relief. States it is sometimes in his heel and tries to suspended it while elevating. Denies f/c/n/v/cp/sob calf pain. States he is doing well with PT and feels it is beneficial Objective: RLE Exam: Vasc: crf < 3 seconds, nontender to calf compression Neuro: light touch sensation intact to digits Derm: no strikethrough noted, dressing c/d/i MS: posterior splint and multilayer dressing intact Radiographs: 3 views of the right ankle were obtained: good alignment and surgical correction with hardware in place, minimal interval healing noted - Physical Exam General: Alert, Cooperative Vital Signs Temp Pulse Resp BP Pulse Ox 97.6 F L 84 18 134/90 H 95 05/31/18 15:51 05/31/18 15:51 05/31/18 15:51 05/31/18 15:51 05/31/18 15:51 Oxygen Delivery Method Room Air Weight: 162 lb 0.636 oz Body Mass Index (BMI) 24.5 Finger Stick Blood Glucose 132 Intake and Output for Last 24 Hours 05/29/18 05/30/18 05/31/18 23:59 23:59 23:59 Intake Total 983 / 983 1100 / 1100 720 / 720 Output Total 525 / 525 500 / 500 Balance 458 / 458 1100 / 1100 220 / 220 Assessment/Plan All Active Problems Closed right ankle fracture (Acute) 77 yo M s/p R ankle ORIF DOS 05/13/18 -Pt evaluated at bedside-added additional padding to heel in posterior splint-keep c/d/i -labs,studies and notes reviewed -Continue RLE elevation when in bed and recliner; offload heel as needed, continue PT with NWB RLE -pain medication, dvt prophylaxis, bowel regimen per medicine -will follow while here in TCU, if d/c will need f/u appt at [facility] in 2 weeks for xrays and eval. -Please call with questions or concerns
--- NOTE | 2018-05-31 19:37 | NURSING ---
Dr. Salazar in to see patient today. NNO.
[2018-05-31] MEDS: Atorvastatin Calcium 20 MG Tablet PO (19:51)
[2018-05-31] MEDS: MELATONIN 3 MG TABLET PO (22:07)
[2018-06-01] MEDS: Enoxaparin 40 MG/0.4 ML Syringe SC (05:36)
[2018-06-01] MEDS: Polyethylene Glycol 3350 17 GM PACKET PO (05:36)
[2018-06-01] MEDS: Levothyroxine 75 MCG Tablet PO (05:36)
[2018-06-01] MEDS: Cyanocobalamin 500 MCG Tablet 1000 MCG PO (05:36)
[2018-06-01] MEDS: Senna/Docusate Sodium 1 Tablet 2 TABLET PO ×2 (05:36→18:07)
[2018-06-01] MEDS: Menthol/Lanolin/Calamine/Znox 113 GM Tube 1 APPLIC TOPICAL ×2 (05:43→21:13)
[2018-06-01] MEDS: Tamsulosin HCl 0.4 MG Capsule PO ×2 (08:27→18:07)
[2018-06-01] MEDS: Carvedilol 6.25 MG Tablet PO ×2 (08:27→21:13)
[2018-06-01] MEDS: Lisinopril 5 MG Tablet PO (08:28)
[2018-06-01] MEDS: Aspirin 81 MG TAB.CHEW PO (08:28)
[2018-06-01] MEDS: Gabapentin 100 MG Capsule PO ×2 (08:28→18:07)
[2018-06-01] MEDS: Loratadine 10 MG Tablet PO (08:28)
[2018-06-01] MEDS: Calcium Carb/Vitamin D 1 TABLET Tablet PO ×2 (08:28→18:07)
[2018-06-01 15:44] VITALS: BP 125/74; PULSE 84; RESP 18; TEMP 36.6; O2SAT 95
[2018-06-01] MEDS: oxyCODONE 5 MG Tablet 10 MG PO (21:13)
[2018-06-01] MEDS: Atorvastatin Calcium 20 MG Tablet PO (21:13)
[2018-06-01] MEDS: MELATONIN 3 MG TABLET PO (21:13)
[2018-06-02] MEDS: Cyanocobalamin 500 MCG Tablet 1000 MCG PO (06:24)
[2018-06-02] MEDS: Polyethylene Glycol 3350 17 GM PACKET PO (06:24)
[2018-06-02] MEDS: Enoxaparin 40 MG/0.4 ML Syringe SC (06:24)
[2018-06-02] MEDS: Senna/Docusate Sodium 1 Tablet 2 TABLET PO ×2 (06:24→17:24)
[2018-06-02] MEDS: Levothyroxine 75 MCG Tablet PO (06:24)
[2018-06-02] MEDS: Menthol/Lanolin/Calamine/Znox 113 GM Tube 1 APPLIC TOPICAL ×2 (06:25→22:14)
[2018-06-02] MEDS: Carvedilol 6.25 MG Tablet PO ×2 (08:35→22:14)
[2018-06-02] MEDS: Calcium Carb/Vitamin D 1 TABLET Tablet PO ×2 (08:35→17:24)
[2018-06-02] MEDS: Lisinopril 5 MG Tablet PO (08:35)
[2018-06-02] MEDS: Gabapentin 100 MG Capsule PO ×2 (08:35→17:24)
[2018-06-02] MEDS: Tamsulosin HCl 0.4 MG Capsule PO ×2 (08:35→17:24)
[2018-06-02] MEDS: Loratadine 10 MG Tablet PO (08:35)
[2018-06-02] MEDS: Aspirin 81 MG TAB.CHEW PO (08:35)
[2018-06-02 08:38] VITALS: BP 114/64; PULSE 89
--- NOTE | 2018-06-02 11:18 | PCM.PN.RX ---
<Moreno Rosas D - Last Filed: 06/02/18 11:18> Progress Note - Pharmacy Subjective: TCU Admission Objective: Allergies No Known Allergies Allergy (Verified 11/22/14 21:08) Current Medications Generic Name Dose Route Start Last Admin Trade Name Freq PRN Reason Stop Dose Admin Acetaminophen 1,000 mg 05/28/18 20:48 05/29/18 14:23 Tylenol PO 1,000 mg Q6H PRN PRN Administration MILD PAIN (1-3/10) Aspirin 81 mg 05/29/18 08:00 06/02/18 08:35 Aspirin, Baby PO 81 mg DAILY@0800 CRYSTAL Administration Atorvastatin Calcium 20 mg 05/28/18 22:00 06/01/18 21:13 Lipitor PO 20 mg QHS CRYSTAL Administration Bisacodyl 10 mg 05/28/18 20:47 Dulcolax PO DAILY PRN Constipation Calamine/Phenol 1 applic 05/28/18 22:00 06/02/18 06:25 Calmoseptine Ointment TOPICAL 1 applicatio 0600,2200 [facility] Administration Protocol Calcium/Vitamin D 1 tablet 05/28/18 17:00 06/02/18 08:35 Os-Curt 500mg + D PO 1 tablet BIDCM CRYSTAL Administration Carvedilol 6.25 mg 05/29/18 08:00 06/02/18 08:35 Coreg PO 6.25 mg 08,1999 [facility] Administration Cyanocobalamin 1,000 mcg 05/29/18 06:00 06/02/18 06:24 Vitamin B12 PO 1,000 mcg DAILY CRYSTAL Administration Enoxaparin Sodium 40 mg 05/29/18 06:00 06/02/18 06:24 Lovenox SC 40 mg DAILY@0600 CRYSTAL Administration Gabapentin 100 mg 05/28/18 17:00 06/02/18 08:35 Neurontin PO 100 mg BIDCM [facility]YSTAL Administration Levothyroxine Sodium 75 mcg 05/29/18 06:00 06/02/18 06:24 Synthroid PO 75 mcg DAILY CRYSTAL Administration Lisinopril 5 mg 05/29/18 08:00 06/02/18 08:35 Zestril PO 5 mg DAILY@0800 [facility]YSTAL Administration Loratadine 10 mg 05/29/18 08:00 06/02/18 08:35 Claritin PO 10 mg DAILY@0800 CRYSTAL Administration Melatonin 3 mg 05/28/18 22:00 06/01/18 21:13 Melatonin PO 3 mg QHS CRYSTAL Administration Metformin HCl 500 mg 05/28/18 17:00 06/02/18 08:35 Glucophage PO 500 mg BIDCM [facility]YSTAL Administration Nitroglycerin 0.4 mg 05/28/18 16:01 Nitrostat SUBLINGUAL Q5M PRN Chest Pain Oxycodone HCl 10 mg 05/29/18 16:07 06/01/18 21:13 Oxyir PO 10 mg Q4H PRN PRN Administration SEVERE PAIN (6-10/10) Polyethylene Glycol 17 gm 05/29/18 06:00 06/02/18 06:24 Miralax PO 17 gm DAILY CRYSTAL Administration Senna/Docusate Sodium 2 tablet 05/29/18 06:00 06/02/18 06:24 Senokot-S, Samanta-Colace PO 2 tablet BID CRYSTAL Administration Tamsulosin HCl 0.4 mg 05/28/18 17:30 06/02/18 08:35 Flomax PO 0.4 mg 0830,1730 [facility] Administration Tuberculin PPD 5 tu 06/05/18 10:00 Tubersol, Aplisol, Ppd ID 06/05/18 10:01 X1 ONE Problem List Closed right ankle fracture (Acute) Coronary artery disease (Chronic) Vitamin B12 deficiency (Chronic) Hypothyroidism (Chronic) Diabetes mellitus (Chronic) Hyperlipidemia (Chronic) BPH (benign prostatic hyperplasia) (Chronic) Vital Signs Temp Pulse Resp BP Pulse Ox 97.8 F 89 18 114/64 95 06/01/18 15:44 06/02/18 08:38 06/01/18 15:44 06/02/18 08:38 06/01/18 15:44 Oxygen Delivery Method Room Air Weight: 73.5 kg Body Mass Index (BMI) 24.5 Finger Stick Blood Glucose 132 Sodium 137 mmol/L (136-145) 05/29/18 05:25 Potassium 4.4 mmol/L (3.5-5.1) 05/29/18 05:25 Chloride 103 mmol/L (98-107) 05/29/18 05:25 Carbon Dioxide 29.0 mmol/L (21.0-32.0) 05/29/18 05:25 Anion Gap 5 (5-15) 05/29/18 05:25 BUN 16 mg/dL (7-18) 05/29/18 05:25 Creatinine 0.83 mg/dL (0.70-1.30) 05/29/18 05:25 Est GFR (MDRD) Af Amer 115 mL/min (>60) 05/29/18 05:25 Est GFR (MDRD) Non-Af 95 mL/min (>60) 05/29/18 05:25 BUN/Creatinine Ratio 19.3 RATIO (10-20) 05/29/18 05:25 Glucose 121 mg/dL (74-106) H 05/29/18 05:25 Assessment/Plan: 1) Pain APAP for mild pain, oxycodone for severe pain, gabapentin. Continue to monitor prn medication use, daily pain scores. 2) CAD ASA, atorvastatin, lisinopril, carvedilol, prn ntg. Continue to monitor BP/HR, renal function, electrolytes, lipids, prn medication use, for chest pain. 3) DM2 Metformin. Continue to monitor BGT, renal function. 4) Hypothyroidism Levothyroxine daily. Continue to monitor s/s hyper/hypothyroidism. 5) BPH Tamsulosin twice daily. Continue to monitor sxs. 6) DVT PPx Enoxaparin daily. Continue to monitor for bleeding/clot. 7) Nutrition Ca/D, B12. Continue to monitor clinically. Psychotropic Medications: None Unnecessary Medications: None Bowel Regimen: 8) Senna/s, PEG, prn bisacodyl. Continue to monitor prn medication use, for constipation/diarrhea. Date of Note:: 06/02/18 - Provider Comments Provider responsibility: Provider responsible to enter orders to implement recommendations <Ricci Beckford Chi - Last Filed: 06/02/18 17:52> Progress Note - Pharmacy Subjective: [] Objective: Allergies No Known Allergies Allergy (Verified 11/22/14 21:08) Current Medications Generic Name Dose Route Start Last Admin Trade Name Freq PRN Reason Stop Dose Admin Acetaminophen 1,000 mg 05/28/18 20:48 05/29/18 14:23 Tylenol PO 1,000 mg Q6H PRN PRN Administration MILD PAIN (1-3/10) Aspirin 81 mg 05/29/18 08:00 06/02/18 08:35 Aspirin, Baby PO 81 mg DAILY@0800 [facility] Administration Atorvastatin Calcium 20 mg 05/28/18 22:00 06/01/18 21:13 Lipitor PO 20 mg QHS [facility] Administration Bisacodyl 10 mg 05/28/18 20:47 Dulcolax PO DAILY PRN Constipation Calamine/Phenol 1 applic 05/28/18 22:00 06/02/18 06:25 Calmoseptine Ointment TOPICAL 1 applicatio 0600,2200 [facility] Administration Protocol Calcium/Vitamin D 1 tablet 05/28/18 17:00 06/02/18 17:24 Os-Curt 500mg + D PO 1 tablet BIDCM [facility] Administration Carvedilol 6.25 mg 05/29/18 08:00 06/02/18 08:35 Coreg PO 6.25 mg 799,1999 [facility] Administration Cyanocobalamin 1,000 mcg 05/29/18 06:00 06/02/18 06:24 Vitamin B12 PO 1,000 mcg DAILY [facility] Administration Enoxaparin Sodium 40 mg 05/29/18 06:00 06/02/18 06:24 Lovenox SC 40 mg DAILY@0600 [facility] Administration Gabapentin 100 mg 05/28/18 17:00 06/02/18 17:24 Neurontin PO 100 mg BIDCM [facility] Administration Levothyroxine Sodium 75 mcg 05/29/18 06:00 06/02/18 06:24 Synthroid PO 75 mcg DAILY [facility] Administration Lisinopril 5 mg 05/29/18 08:00 06/02/18 08:35 Zestril PO 5 mg DAILY@0800 [facility] Administration Loratadine 10 mg 05/29/18 08:00 06/02/18 08:35 Claritin PO 10 mg DAILY@0800 [facility] Administration Melatonin 3 mg 05/28/18 22:00 06/01/18 21:13 Melatonin PO 3 mg QHS [facility] Administration Metformin HCl 500 mg 05/28/18 17:00 06/02/18 17:23 Glucophage PO 500 mg BIDCM [facility] Administration Nitroglycerin 0.4 mg 05/28/18 16:01 Nitrostat SUBLINGUAL Q5M PRN Chest Pain Oxycodone HCl 10 mg 05/29/18 16:07 06/02/18 15:25 Oxyir PO 10 mg Q4H PRN PRN Administration SEVERE PAIN (6-10/10) Polyethylene Glycol 17 gm 05/29/18 06:00 06/02/18 06:24 Miralax PO 17 gm DAILY [facility] Administration Senna/Docusate Sodium 2 tablet 05/29/18 06:00 06/02/18 17:24 Senokot-S, Samanta-Colace PO 2 tablet BID [facility] Administration Tamsulosin HCl 0.4 mg 05/28/18 17:30 06/02/18 17:24 Flomax PO 0.4 mg 0830,1730 [facility] Administration Tuberculin PPD 5 tu 06/05/18 10:00 Tubersol, Aplisol, Ppd ID 06/05/18 10:01 X1 ONE Problem List Closed right ankle fracture (Acute) Coronary artery disease (Chronic) Vitamin B12 deficiency (Chronic) Hypothyroidism (Chronic) Diabetes mellitus (Chronic) Hyperlipidemia (Chronic) BPH (benign prostatic hyperplasia) (Chronic) Vital Signs Temp Pulse Resp BP Pulse Ox 98.4 F 84 16 116/63 94 06/02/18 16:00 06/02/18 16:00 06/02/18 16:00 06/02/18 16:00 06/02/18 16:00 Oxygen Delivery Method Room Air Weight: 73.5 kg Body Mass Index (BMI) 24.5 Finger Stick Blood Glucose 132 Sodium 137 mmol/L (136-145) 05/29/18 05:25 Potassium 4.4 mmol/L (3.5-5.1) 05/29/18 05:25 Chloride 103 mmol/L (98-107) 05/29/18 05:25 Carbon Dioxide 29.0 mmol/L (21.0-32.0) 05/29/18 05:25 Anion Gap 5 (5-15) 05/29/18 05:25 BUN 16 mg/dL (7-18) 05/29/18 05:25 Creatinine 0.83 mg/dL (0.70-1.30) 05/29/18 05:25 Est GFR (MDRD) Af Amer 115 mL/min (>60) 05/29/18 05:25 Est GFR (MDRD) Non-Af 95 mL/min (>60) 05/29/18 05:25 BUN/Creatinine Ratio 19.3 RATIO (10-20) 05/29/18 05:25 Glucose 121 mg/dL (74-106) H 05/29/18 05:25 Assessment/Plan: Psychotropic Medications: Unnecessary Medications: Bowel Regimen: - Provider Comments Provider responsibility: Provider responsible to enter orders to implement recommendations Provider Comments to Recommendations by Pharmacy: Agree
[2018-06-02] MEDS: oxyCODONE 5 MG Tablet 10 MG PO ×2 (15:25→22:14)
[2018-06-02 16:00] VITALS: BP 116/63; PULSE 84; RESP 16; TEMP 36.9; O2SAT 94
[2018-06-02] MEDS: Atorvastatin Calcium 20 MG Tablet PO (22:14)
[2018-06-02] MEDS: MELATONIN 3 MG TABLET PO (22:14)
[2018-06-03] MEDS: Senna/Docusate Sodium 1 Tablet 2 TABLET PO ×2 (05:53→16:41)
[2018-06-03] MEDS: Levothyroxine 75 MCG Tablet PO (05:53)
[2018-06-03] MEDS: Enoxaparin 40 MG/0.4 ML Syringe SC (05:54)
[2018-06-03] MEDS: Polyethylene Glycol 3350 17 GM PACKET PO (05:54)
[2018-06-03] MEDS: Cyanocobalamin 500 MCG Tablet 1000 MCG PO (05:54)
[2018-06-03] MEDS: Menthol/Lanolin/Calamine/Znox 113 GM Tube 1 APPLIC TOPICAL ×2 (05:54→20:12)
[2018-06-03 07:46] VITALS: BP 131/71; PULSE 82
[2018-06-03] MEDS: Loratadine 10 MG Tablet PO (07:49)
[2018-06-03] MEDS: Aspirin 81 MG TAB.CHEW PO (07:49)
[2018-06-03] MEDS: Carvedilol 6.25 MG Tablet PO ×2 (07:49→20:12)
[2018-06-03] MEDS: Gabapentin 100 MG Capsule PO ×2 (07:49→16:41)
[2018-06-03] MEDS: Calcium Carb/Vitamin D 1 TABLET Tablet PO ×2 (07:49→16:41)
[2018-06-03] MEDS: Tamsulosin HCl 0.4 MG Capsule PO ×2 (07:49→16:41)
[2018-06-03] MEDS: Lisinopril 5 MG Tablet PO (07:49)
[2018-06-03] MEDS: oxyCODONE 5 MG Tablet 10 MG PO ×4 (07:53→22:45)
[2018-06-03 15:10] VITALS: BP 125/80; PULSE 66; RESP 18; TEMP 36.2; O2SAT 96
--- NOTE | 2018-06-03 15:13 | CASEMGMT ---
Social Work Spoke with team today and d/c date set for 06/12/18. SW met with pt in room to discuss this. Pt stating that his daughters work and go to school so are unable to care for him. Pt stating he would like to stay in facility if able. SW explained that he will get another week of therapy and may feel more comfortable returning home at that time. Team meeting scheduled for tomorrow. Will talk to pt and family more about d/c plans at team meeting. DONNELL Allan
[2018-06-03] MEDS: Atorvastatin Calcium 20 MG Tablet PO (20:12)
[2018-06-03] MEDS: MELATONIN 3 MG TABLET PO (20:12)
[2018-06-04] MEDS: Menthol/Lanolin/Calamine/Znox 113 GM Tube 1 APPLIC TOPICAL ×2 (05:19→20:10)
[2018-06-04] MEDS: Cyanocobalamin 500 MCG Tablet 1000 MCG PO (05:19)
[2018-06-04] MEDS: Senna/Docusate Sodium 1 Tablet 2 TABLET PO ×2 (05:19→17:06)
[2018-06-04] MEDS: Polyethylene Glycol 3350 17 GM PACKET PO (05:19)
[2018-06-04] MEDS: Enoxaparin 40 MG/0.4 ML Syringe SC (05:19)
[2018-06-04] MEDS: Levothyroxine 75 MCG Tablet PO (05:19)
[2018-06-04] MEDS: oxyCODONE 5 MG Tablet 10 MG PO ×3 (05:20→22:43)
[2018-06-04] MEDS: Calcium Carb/Vitamin D 1 TABLET Tablet PO ×2 (08:10→17:07)
[2018-06-04] MEDS: Aspirin 81 MG TAB.CHEW PO (08:10)
[2018-06-04] MEDS: Loratadine 10 MG Tablet PO (08:10)
[2018-06-04] MEDS: Carvedilol 6.25 MG Tablet PO ×2 (08:10→20:09)
[2018-06-04] MEDS: Gabapentin 100 MG Capsule PO ×2 (08:10→17:07)
[2018-06-04] MEDS: Lisinopril 5 MG Tablet PO (08:11)
[2018-06-04] MEDS: Tamsulosin HCl 0.4 MG Capsule PO ×2 (08:11→17:06)
[2018-06-04 15:33] VITALS: BP 116/78; PULSE 83; RESP 20; TEMP 35.9; O2SAT 93
--- NOTE | 2018-06-04 16:10 | CASEMGMT ---
Team meeting held today with pt present. Pt is progressing well with therapy. Projecting goals to be met by next week and d/c date set for 06/12/18. Pt expressing some concerns with returning home. AZAR discussed with pt options of assisted living or private duty aides but states does not feel this would be needed. Pt expressing concerns about meals and SW offered [facility]. Pt declines stating he can cook for himself. Pt dgt Carla lives with pt but is not home most of the time. Pt states Carla cannot transport pt and he relies on Skylar for transportation and her day off is 06/11 and team agreed pt could d/c on that date for family convenience. Team suggested home health PT and pt is agreeable to this. Pt agreeable to AZAR speaking with rafa Cheng about d/c plan./ AZAR entered pt room after team meeting and rafa Cheng present in room. Update on pt progress given to Skylar with information about d/c 06/11 or 06/12. When AZAR asked Skylar her opinion on pt returning home she would only state I don't live with him. AZAR inquired if she could take pt home on day of d/c and Skylar declined. AZAR asked if Tammie could transport pt home and pt stated no she is too busy. AZAR inquired if there was any one else who would be willing to assist and pt states he will call [facility]. AZAR informed pt and Skylar that if he is unable to obtained a ride, transportation could be arranged with hospital van. AZAR will continue to follow for d/c planning. DONNELL Allan
[2018-06-04] MEDS: MELATONIN 10 MG TABLET PO (20:08)
[2018-06-04] MEDS: Atorvastatin Calcium 20 MG Tablet PO (20:09)
[2018-06-05] MEDS: Acetaminophen 500 MG Tablet 1000 MG PO (03:07)
[2018-06-05 05:35] LABS: Absolute Lymphocyte Count 1.39 X10^3/ul (0.83-4.51); Absolute Neutrophil Count 4.3 X10^3/uL (2.0-7.7); Basophil# 0.03 X10^3/uL; Basophil% 0.5 % (0-1); Eosinophil# 0.17 X10^3/uL; Eosinophils% 2.7 % (0-5); Hemoglobin 12.9 g/dl (13.0-16.5); Lymphocyte # 1.39 X10^3/ul (4.0); Lymphocyte % 21.9 % (19-41); Mean Corp Hgb Conc 33.1 g/gl (32-36); Mean Corpuscular Hgb 29.6 pg (27.0-32.0); Mean Corpuscular Volume 89.4 fL (80-94); Mean Platelet Vol. 10.4 fl (6.2-12.0); Monocyte# 0.46 X10^3/uL; Monocyte% 7.3 % (0-10); Neutrophil # 4.28 X10^3/uL (2.7-7.7); Neutrophil % 67.4 % (47-70); Platelet Count 265 K/mm3 (150-450); RBC Distribution Width CV 12.5 % (11.6-14.6); RBC Distribution Width SD 40.2 fl (35.1-43.9); Red Blood Count 4.36 M/mm3 (4.6-6.2); White Blood Count 6.3 K/mm3 (4.4-11.0)
[2018-06-05] MEDS: Bisacodyl 5 MG Tablet 10 MG PO (05:38)
[2018-06-05] MEDS: Cyanocobalamin 500 MCG Tablet 1000 MCG PO (05:39)
[2018-06-05] MEDS: Polyethylene Glycol 3350 17 GM PACKET PO (05:39)
[2018-06-05] MEDS: Levothyroxine 75 MCG Tablet PO (05:39)
[2018-06-05] MEDS: Senna/Docusate Sodium 1 Tablet 2 TABLET PO ×2 (05:39→17:07)
[2018-06-05] MEDS: Menthol/Lanolin/Calamine/Znox 113 GM Tube 1 APPLIC TOPICAL ×2 (05:41→20:11)
[2018-06-05] MEDS: Enoxaparin 40 MG/0.4 ML Syringe SC (05:41)
[2018-06-05 05:50] LABS: Anion Gap 6 (5-15); BUN 13 mg/dL (7-18); BUN/Creat Ratio 15.8 RATIO (10-20); Calcium,Total 8.7 mg/dL (8.5-10.1); Chloride 100 mmol/L (98-107); Creatinine, Serum 0.82 mg/dL (0.70-1.30); EST Glomerular Filtration Rate 96 mL/min (>60); Est Glom Filt Rate - Afr Amer 116 mL/min (>60); Estimated Creatinine Clearance 72.99 ml/min; Glucose 123 mg/dL (74-106); Potassium 4.6 mmol/L (3.5-5.1); Sodium Level 137 mmol/L (136-145)
[2018-06-05 05:51] LABS: POSITIVE COUNT NO; POSITIVE DIFFERENTIAL NO; POSITIVE MORPHOLOGY NO
[2018-06-05] MEDS: Gabapentin 100 MG Capsule PO ×2 (07:46→17:08)
[2018-06-05] MEDS: Tamsulosin HCl 0.4 MG Capsule PO ×2 (07:46→17:08)
[2018-06-05] MEDS: Calcium Carb/Vitamin D 1 TABLET Tablet PO ×2 (07:47→17:08)
[2018-06-05] MEDS: Carvedilol 6.25 MG Tablet PO ×2 (07:47→20:11)
[2018-06-05] MEDS: Loratadine 10 MG Tablet PO (07:47)
[2018-06-05] MEDS: Aspirin 81 MG TAB.CHEW PO (07:47)
[2018-06-05] MEDS: Lisinopril 5 MG Tablet PO (07:47)
[2018-06-05] MEDS: Tuberculin,Purif.prot.deriv. 50 TU/ML Vial 5 ML ID (10:57)
[2018-06-05 15:28] VITALS: BP 103/59; PULSE 87; RESP 18; TEMP 35.7; O2SAT 95
[2018-06-05] MEDS: Atorvastatin Calcium 20 MG Tablet PO (20:11)
[2018-06-05] MEDS: MELATONIN 10 MG TABLET PO (20:11)
[2018-06-05] MEDS: oxyCODONE 5 MG Tablet 10 MG PO (23:56)
[2018-06-06] MEDS: Enoxaparin 40 MG/0.4 ML Syringe SC (05:15)
[2018-06-06] MEDS: Polyethylene Glycol 3350 17 GM PACKET PO (05:15)
[2018-06-06] MEDS: Cyanocobalamin 500 MCG Tablet 1000 MCG PO (05:16)
[2018-06-06] MEDS: Senna/Docusate Sodium 1 Tablet 2 TABLET PO ×2 (05:16→17:13)
[2018-06-06] MEDS: Levothyroxine 75 MCG Tablet PO (05:16)
[2018-06-06] MEDS: Menthol/Lanolin/Calamine/Znox 113 GM Tube 1 APPLIC TOPICAL ×2 (05:19→21:29)
[2018-06-06] MEDS: Loratadine 10 MG Tablet PO (10:11)
[2018-06-06] MEDS: Lisinopril 5 MG Tablet PO (10:11)
[2018-06-06] MEDS: Aspirin 81 MG TAB.CHEW PO (10:11)
[2018-06-06] MEDS: Calcium Carb/Vitamin D 1 TABLET Tablet PO ×2 (10:12→17:13)
[2018-06-06] MEDS: Carvedilol 6.25 MG Tablet PO ×2 (10:12→21:27)
[2018-06-06] MEDS: Gabapentin 100 MG Capsule PO ×2 (10:12→17:13)
[2018-06-06] MEDS: Tamsulosin HCl 0.4 MG Capsule PO ×2 (10:14→17:13)
[2018-06-06 15:39] VITALS: BP 105/50; PULSE 85; RESP 16; TEMP 36.7; O2SAT 94
[2018-06-06] MEDS: Acetaminophen 500 MG Tablet 1000 MG PO (17:18)
[2018-06-06] MEDS: MELATONIN 10 MG TABLET PO (21:27)
[2018-06-06] MEDS: Atorvastatin Calcium 20 MG Tablet PO (21:27)
[2018-06-06] MEDS: oxyCODONE 5 MG Tablet 10 MG PO (22:54)
[2018-06-07] MEDS: Senna/Docusate Sodium 1 Tablet 2 TABLET PO ×2 (05:54→17:16)
[2018-06-07] MEDS: Levothyroxine 75 MCG Tablet PO (05:54)
[2018-06-07] MEDS: Cyanocobalamin 500 MCG Tablet 1000 MCG PO (05:54)
[2018-06-07] MEDS: Polyethylene Glycol 3350 17 GM PACKET PO (05:54)
[2018-06-07] MEDS: Menthol/Lanolin/Calamine/Znox 113 GM Tube 1 APPLIC TOPICAL ×2 (05:55→20:49)
[2018-06-07] MEDS: Enoxaparin 40 MG/0.4 ML Syringe SC (05:55)
[2018-06-07] MEDS: Aspirin 81 MG TAB.CHEW PO (08:36)
[2018-06-07] MEDS: Loratadine 10 MG Tablet PO (08:37)
[2018-06-07] MEDS: Lisinopril 5 MG Tablet PO (08:37)
[2018-06-07] MEDS: Gabapentin 100 MG Capsule PO ×2 (08:37→17:15)
[2018-06-07] MEDS: Tamsulosin HCl 0.4 MG Capsule PO ×2 (08:37→17:15)
[2018-06-07] MEDS: Calcium Carb/Vitamin D 1 TABLET Tablet PO ×2 (08:37→17:15)
[2018-06-07] MEDS: Carvedilol 6.25 MG Tablet PO ×2 (08:37→20:44)
[2018-06-07 10:00] VITALS: PULSE 80; O2SAT 94
[2018-06-07 15:32] VITALS: BP 97/46; PULSE 78; RESP 16; TEMP 36.6; O2SAT 95
[2018-06-07] MEDS: Atorvastatin Calcium 20 MG Tablet PO (20:44)
[2018-06-07] MEDS: MELATONIN 10 MG TABLET PO (20:44)
[2018-06-08] MEDS: Polyethylene Glycol 3350 17 GM PACKET PO (06:08)
[2018-06-08] MEDS: Levothyroxine 75 MCG Tablet PO (06:11)
[2018-06-08] MEDS: Enoxaparin 40 MG/0.4 ML Syringe SC (06:11)
[2018-06-08] MEDS: Senna/Docusate Sodium 1 Tablet 2 TABLET PO ×2 (06:11→16:24)
[2018-06-08] MEDS: Cyanocobalamin 500 MCG Tablet 1000 MCG PO (06:11)
[2018-06-08] MEDS: Menthol/Lanolin/Calamine/Znox 113 GM Tube 1 APPLIC TOPICAL ×2 (06:13→20:33)
[2018-06-08] MEDS: Gabapentin 100 MG Capsule PO ×2 (07:53→16:24)
[2018-06-08] MEDS: Lisinopril 5 MG Tablet PO (07:53)
[2018-06-08] MEDS: Loratadine 10 MG Tablet PO (07:53)
[2018-06-08] MEDS: Tamsulosin HCl 0.4 MG Capsule PO ×2 (07:53→16:24)
[2018-06-08] MEDS: Aspirin 81 MG TAB.CHEW PO (07:53)
[2018-06-08] MEDS: Carvedilol 6.25 MG Tablet PO ×2 (07:53→20:33)
[2018-06-08] MEDS: Calcium Carb/Vitamin D 1 TABLET Tablet PO ×2 (07:53→16:24)
[2018-06-08 16:26] VITALS: BP 116/60; PULSE 81; RESP 18; TEMP 36.8; O2SAT 96
[2018-06-08] MEDS: MELATONIN 10 MG TABLET PO (20:33)
[2018-06-08] MEDS: Atorvastatin Calcium 20 MG Tablet PO (20:33)
[2018-06-09] MEDS: Cyanocobalamin 500 MCG Tablet 1000 MCG PO (06:09)
[2018-06-09] MEDS: Levothyroxine 75 MCG Tablet PO (06:09)
[2018-06-09] MEDS: Enoxaparin 40 MG/0.4 ML Syringe SC (06:09)
[2018-06-09] MEDS: Menthol/Lanolin/Calamine/Znox 113 GM Tube 1 APPLIC TOPICAL ×2 (06:12→19:49)
--- NOTE | 2018-06-09 08:38 | DCINST_ITS ---
- Discharge Diagnoses Current Active Problems: Current Active and Chronic Problems Closed right ankle fracture (Acute) Coronary artery disease (Chronic) Vitamin B12 deficiency (Chronic) Hypothyroidism (Chronic) Diabetes mellitus (Chronic) Hyperlipidemia (Chronic) BPH (benign prostatic hyperplasia) (Chronic) You will use the following diet at home:: No restrictions, Regular Your food should be the consistency of: Regular Your liquids should be the consistency of: Regular/Thin Discharge Activity: Return to Normal Activity, May Shower, Use Walker Weight Bearing Status: Weight bearing as tolerated Call your doctor if you observe: Fever of 101 or Higher, Inability to urinate, Inability to have a bowel movement, Shortness of breath, Chest pain, Uncontrolled pain Allergies/Adverse Reactions: Allergies No Known Allergies Allergy (Verified 11/22/14 21:08) Medications to take at Discharge Aspirin [Aspirin, Baby] 81 mg PO DAILY@0800 05/12/18 Carvedilol [Coreg (Beta Alla)] 6.25 mg PO BID 05/12/18 Cyanocobalamin (Vitamin B-12) [Vitamin B-12] 1,000 mcg PO DAILY 05/12/18 Levothyroxine Sodium [Levoxyl] 75 mcg PO DAILY 05/12/18 Metformin HCl [Glucophage] 500 mg PO BIDCM 05/12/18 Nitroglycerin [Nitrostat] 0.4 mg SUBLINGUAL Q5M PRN 05/12/18 Acetaminophen [Tylenol Tablet] 650 mg PO Q6H PRN PRN tablet 05/27/18 Calcium Carb/Vitamin D [Os-Curt 500MG + D] 1 tablet PO BIDCM 05/28/18 Lisinopril [Zestril] 5 mg PO DAILY 05/28/18 Loratadine [Claritin] 10 mg PO DAILY 05/28/18 Melatonin 3 mg PO QHS 05/28/18 Tamsulosin HCl [Flomax] 0.4 mg PO 0830,1730 05/28/18 Atorvastatin Calcium [Lipitor] 20 mg PO QHS #30 tab 06/09/18 Gabapentin [Neurontin] 100 mg PO BIDCM #60 cap 06/09/18 Menthol/Lanolin/Calamine/Znox [Calmoseptine Ointment] 1 applic TOPICAL 0600,2200 tube 06/09/18 Oxycodone [Oxyir] 10 mg PO Q4H PRN PRN 7 Days #30 tab 06/09/18 Polyethylene Glycol 3350 [Miralax] 17 gm PO DAILY #30 packet 06/09/18 Senna/Docusate Sodium [Senokot-S] 2 tab PO BID #120 tab 06/09/18 The following prescriptions were given: Oxycodone [Oxyir] 10 mg PO Q4H PRN PRN 7 Days #30 tab PRN Reason: Severe Pain (-04/09) Atorvastatin Calcium [Lipitor] 20 mg PO QHS #30 tab Polyethylene Glycol 3350 [Miralax] 17 gm PO DAILY #30 packet Gabapentin [Neurontin] 100 mg PO BIDCM #60 cap Senna/Docusate Sodium [Senokot-S] 2 tab PO BID #120 tab Primary Care Physician: Eduard Sánchez NP-C [Primary Care Provider] - Please follow up with your Primary Care Physician in: 1 week. Test Results: Test results from this visit will be discussed in further detail at your follow- up appointment, if applicable. Please Follow Up With: Eduard Sánchez NP-C Please Follow Up With: Cornelia Salazar DPM When: 2 weeks. Proposed Discharge Date: 06/11/18
--- NOTE | 2018-06-09 08:38 | PCM.DC.SUM ---
Discharge Date and Diagnosis - Problem List Patient Problems: Active and Suspected Problems Closed right ankle fracture (Acute) Date of Admission: 05/28/18 Date of Discharge: 06/11/18 - Primary Discharge Diagnosis Active and Suspected Problems Closed right ankle fracture (Acute) - Secondary Discharge Diagnosis Chronic Problems Coronary artery disease (Chronic) Vitamin B12 deficiency (Chronic) Hypothyroidism (Chronic) Diabetes mellitus (Chronic) Hyperlipidemia (Chronic) BPH (benign prostatic hyperplasia) (Chronic) Hospital Course and Treatment Imaging Results: 05/28/18 16:17 Diet: Calorie Controlled Is pt able to select menu?: Yes Diet Comments: carb control How many daily calories?: 2000 calorie Operations: None Procedures: None Summary of Care Provided: The patient is a 77 year old Male with below past medical history hospitalized for ORIF right ankle fracture 05/12/[address] Salazar, admitted to for therapy, now stepping down to TCU with debility, here for rehabilitation, strengthening, prior to discharge home with family. Discharge home with daughter, Home Health Services. Patient Problems: Active and Suspected Problems Closed right ankle fracture (Acute) - Physical Exam Vital Signs Temp Pulse Resp BP Pulse Ox 98.3 F 81 18 116/60 96 06/08/18 16:26 06/08/18 16:26 06/08/18 16:26 06/08/18 16:26 06/08/18 16:26 Oxygen Delivery Method Room Air Weight: 73.964 kg Body Mass Index (BMI) 24.5 Finger Stick Blood Glucose 132 Intake and Output for Last 24 Hours 06/07/18 06/08/18 06/09/18 23:59 23:59 23:59 Intake Total 840 / 840 720 / 720 Balance 840 / 840 720 / 720 Discharge Diet: No Restrictions Discharge Activity: Return to Normal Activity, May Shower, Use Walker Weight Bearing Status: No weight bearing - Right lower extremity. Call your doctor if you observe: Fever of 101 or Higher, Inability to urinate, Inability to have a bowel movement, Shortness of breath, Chest pain, Uncontrolled pain Home Medications: Medications to take at Discharge Aspirin [Aspirin, Baby] 81 mg PO DAILY@0800 05/12/18 Carvedilol [Coreg (Beta Alla)] 6.25 mg PO BID 05/12/18 Cyanocobalamin (Vitamin B-12) [Vitamin B-12] 1,000 mcg PO DAILY 05/12/18 Levothyroxine Sodium [Levoxyl] 75 mcg PO DAILY 05/12/18 Metformin HCl [Glucophage] 500 mg PO BIDCM 05/12/18 Nitroglycerin [Nitrostat] 0.4 mg SUBLINGUAL Q5M PRN 05/12/18 Acetaminophen [Tylenol Tablet] 650 mg PO Q6H PRN PRN tablet 05/27/18 Calcium Carb/Vitamin D [Os-Curt 500MG + D] 1 tablet PO BIDCM 05/28/18 Lisinopril [Zestril] 5 mg PO DAILY 05/28/18 Loratadine [Claritin] 10 mg PO DAILY 05/28/18 Melatonin 3 mg PO QHS 05/28/18 Tamsulosin HCl [Flomax] 0.4 mg PO 0830,1730 05/28/18 Atorvastatin Calcium [Lipitor] 20 mg PO QHS #30 tab 06/09/18 Gabapentin [Neurontin] 100 mg PO BIDCM #60 cap 06/09/18 Menthol/Lanolin/Calamine/Znox [Calmoseptine Ointment] 1 applic TOPICAL 0600,2200 tube 06/09/18 Oxycodone [Oxyir] 10 mg PO Q4H PRN PRN 7 Days #30 tab 06/09/18 Polyethylene Glycol 3350 [Miralax] 17 gm PO DAILY #30 packet 06/09/18 Senna/Docusate Sodium [Senokot-S] 2 tab PO BID #120 tab 06/09/18 Following Prescrptions Were Given to Patient: Oxycodone [Oxyir] 10 mg PO Q4H PRN PRN 7 Days #30 tab PRN Reason: Severe Pain (-04/09) Atorvastatin Calcium [Lipitor] 20 mg PO QHS #30 tab Polyethylene Glycol 3350 [Miralax] 17 gm PO DAILY #30 packet Gabapentin [Neurontin] 100 mg PO BIDCM #60 cap Senna/Docusate Sodium [Senokot-S] 2 tab PO BID #120 tab Primary Care Physician: Eduard Sánchez NP-C [Primary Care Provider] - Please follow up with your Primary Care Physician in: 1 week. Please Follow Up With: Eduard Sánchez NP-C Please Follow Up With: Cornelia Salazar DPM When: 2 weeks. Disposition: Home with Home Health Minutes spent on discharge:: 35 Patient Condition:: Good Medical Necessity - Tobacco Use Smoking Status: Never smoker Tobacco Use: Non-smoker Meaningful Use Info Meaningful Use Diagnoses (Choose all that apply): None applicable
--- NOTE | 2018-06-09 08:40 | PCM.PN.HH ---
Home Health Note - Plan Overview of reason of hospitalization: The patient is a 77 year old Male with below past medical history hospitalized for ORIF right ankle fracture 05/12/[address] Salazar, admitted to for therapy, now stepping down to TCU with debility, here for rehabilitation, strengthening, prior to discharge home with family. Discharge home with daughter, Home Health Services. Problems: Patient was seen for Closed right ankle fracture (Acute) Coronary artery disease (Chronic) Vitamin B12 deficiency (Chronic) Hypothyroidism (Chronic) Diabetes mellitus (Chronic) Hyperlipidemia (Chronic) BPH (benign prostatic hyperplasia) (Chronic) Complete List of Medical Problems Closed right ankle fracture (Acute) Coronary artery disease (Chronic) Vitamin B12 deficiency (Chronic) Hypothyroidism (Chronic) Diabetes mellitus (Chronic) Hyperlipidemia (Chronic) BPH (benign prostatic hyperplasia) (Chronic) - Requirements and Reasons Disciplines Needed/Ordered: Physical Therapy Reason for Disciplines: Disease Specific Monitoring/education, Gait Training, Stair Training, Fall Prevention, Home Safety/Equipment Instruction, Balance and/or Posture Training, Transfer Training Related To: Change in Medical Treatment Plan, Limited/Poor Endurance, Physical Impairments, Unsteady Gait/Balance, Intractable Pain, Fall Risk Patient is unable to leave the home: Without Aid of Supportive Devices (crutches, cane, wheelchair, walker), Without the assistance of another person Medically Contraindicated related to: Weight Bearing Status
[2018-06-09] MEDS: Loratadine 10 MG Tablet PO (10:03)
[2018-06-09] MEDS: Calcium Carb/Vitamin D 1 TABLET Tablet PO ×2 (10:04→16:45)
[2018-06-09] MEDS: Gabapentin 100 MG Capsule PO ×2 (10:04→16:45)
[2018-06-09] MEDS: Tamsulosin HCl 0.4 MG Capsule PO ×2 (10:04→16:44)
[2018-06-09] MEDS: Aspirin 81 MG TAB.CHEW PO (10:04)
[2018-06-09] MEDS: Carvedilol 6.25 MG Tablet PO ×2 (10:04→19:47)
[2018-06-09] MEDS: Lisinopril 5 MG Tablet PO (10:04)
[2018-06-09 15:27] VITALS: BP 101/83; PULSE 84; RESP 16; TEMP 36.4; O2SAT 98
[2018-06-09] MEDS: MELATONIN 10 MG TABLET PO (19:47)
[2018-06-09] MEDS: Atorvastatin Calcium 20 MG Tablet PO (19:47)
[2018-06-10] MEDS: Cyanocobalamin 500 MCG Tablet 1000 MCG PO (05:32)
[2018-06-10] MEDS: Enoxaparin 40 MG/0.4 ML Syringe SC (05:32)
[2018-06-10] MEDS: Levothyroxine 75 MCG Tablet PO (05:32)
[2018-06-10] MEDS: Menthol/Lanolin/Calamine/Znox 113 GM Tube 1 APPLIC TOPICAL ×2 (05:34→21:02)
[2018-06-10] MEDS: Lisinopril 5 MG Tablet PO (09:10)
[2018-06-10] MEDS: Gabapentin 100 MG Capsule PO ×2 (09:10→17:05)
[2018-06-10] MEDS: Calcium Carb/Vitamin D 1 TABLET Tablet PO ×2 (09:11→17:05)
[2018-06-10] MEDS: Loratadine 10 MG Tablet PO (09:11)
[2018-06-10] MEDS: Carvedilol 6.25 MG Tablet PO ×2 (09:11→21:00)
[2018-06-10] MEDS: Aspirin 81 MG TAB.CHEW PO (09:11)
[2018-06-10] MEDS: Tamsulosin HCl 0.4 MG Capsule PO ×2 (09:11→17:05)
--- NOTE | 2018-06-10 09:59 | MDS.RN ---
Information for the mds was obtained from review of the clinical record, interview of resident, staff, and direct observation of resident's care.
--- NOTE | 2018-06-10 10:24 | CASEMGMT ---
Brief interview for mental status (BIMS) and resident mood interview (PHQ-9) completed on this day. BIMS score 15/15. PHQ-9 score
--- NOTE | 2018-06-10 11:28 | CASEMGMT ---
Social Work Spoke with resident in room in regards to discharge date/plan. Resident reporting to be agreeable to discharge to home with daughter. Resident daughter does work and is unable to provide 24hr care for resident within the home, 24hr care is not recommended at this time. Resident reporting to need a front wheeled walker at time of discharge. Resident does not have a preference of [employer] to be utilized. This drug abuse social worker also communicating to resident that physical therapy is recommending for resident to continue with services within the home. Resident is agreeable to recommendation and requesting for home health care to be set up through [facility] ([facility] [place]). Resident agreeable to this socia worker contacting resident daughter, Tammie in regards to discharge date/plan. Resident voicing that family will be able to provide transportation home for resident at time of discharge. Telephone call to bandar Cho informing Tammie of discharge plan and to contact this drug abuse social worker with any questions. Support given. Telephone call to [facility]. This drug abuse social worker making referral for physical therapy. Order completed. Telephone call to Avrli Sahni. This drug abuse social worker making referral for front wheeled walker. Order faxed. Kaitlyn to deliver walker to resident room prior to resident discharge. Proposed discharge date: 06/11/18 PLAN: Discharge to home with family and home health care. DONNELL Medrano, [employer]TER
[2018-06-10 15:18] VITALS: BP 91/66; PULSE 77; RESP 18; TEMP 36.4; O2SAT 95
[2018-06-10] MEDS: Atorvastatin Calcium 20 MG Tablet PO (21:01)
[2018-06-10] MEDS: MELATONIN 10 MG TABLET PO (21:01)
[2018-06-11] MEDS: Menthol/Lanolin/Calamine/Znox 113 GM Tube 1 APPLIC TOPICAL (05:22)
[2018-06-11] MEDS: Levothyroxine 75 MCG Tablet PO (05:23)
[2018-06-11] MEDS: Enoxaparin 40 MG/0.4 ML Syringe SC (05:23)
[2018-06-11] MEDS: Cyanocobalamin 500 MCG Tablet 1000 MCG PO (05:23)
[2018-06-11] MEDS: Calcium Carb/Vitamin D 1 TABLET Tablet PO (07:55)
[2018-06-11] MEDS: Aspirin 81 MG TAB.CHEW PO (07:55)
[2018-06-11] MEDS: Lisinopril 5 MG Tablet PO (07:55)
[2018-06-11] MEDS: Gabapentin 100 MG Capsule PO (07:55)
[2018-06-11] MEDS: Carvedilol 6.25 MG Tablet PO (07:55)
[2018-06-11] MEDS: Tamsulosin HCl 0.4 MG Capsule PO (07:55)
[2018-06-11] MEDS: Loratadine 10 MG Tablet PO (07:55)
[2018-06-11 08:00] VITALS: BP 137/67; PULSE 97; RESP 16; TEMP 36.8; O2SAT 97
[2018-06-11 10:00] VITALS: RESP 16
--- OUTSIDE RECORDS SUMMARY | 2018-07-24 00:48 | XMS RPT_ITS ---
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 then inflated to 300mmHg. At this time attention was directed to the right lateral ankle. The fracture of the fibula was again identified on intra operative fluoroscopy and the a curvilinear incision was made over the distal fibula. The incision was carried bluntly carried deep with all bleeders tied or bovied as necessary, all vital neurovascular structures and tendons were retracted. The fracture was identified. It was noted to have minimal callus formation and was not rigid. Using an osteotome and mallet the fracture line was mobilized and currettes and 0.045 k wire was used to creategood jose david bleeding at the distal and proximal fibula fracture ends.using curettes the fracture was debrided and all soft tissue was retracted. Using a bone hook and bone reduction clamps the fracture was reduced. This was directly visualized and also confirmed on intra operative fluoroscopy. The fibula was noted to be out to length and with proper rotation. An interfragmentary screw was then placed under intra operative fluroscopy guidance. A joseph variax plate was then placed with a combination of locking and nonlocking screws. The plate and screws were measured and placed under intra operative fluroscopy and direct visualization After stabilization of the fibula a bone hook was used to stress the ankle as well as external rotation. It was noted to have no increase tibiofibular joint widening or medial clear space. No syndesmotic fixation was deemed necessary. The incision was the flushed with copious amounts of normal sterile saline and layered closure was initiated. 2.0 vicryl was used for deep layers, 3.0 vicryl for subcutaneous layers and 3.0 prolene for skin. Adaptic, DSD and FRANCESCO compression dressing with a posterior splint was applied. Total tourniquet time was 101 minutes and immediate capillary refill was noted to all digits upon deflation. The patient tolerated the procedure and anesthesia well. A RLE lower sciatic block was placed by anesthesia for post operative pain control. The patient was transported to the PACu by myself and member of the anesthesia care team with AVSS and NV RLE equal to pre operative levels. At the end of the case, all needle sponge and instrument counts were found to be the same. Grafts/Implants Used: Murdock Variax plate and nonlocking and locking screws - Complications none - Admit VTE Documentation VTE Present on Admission: No VTE Mechan Device Prophylaxis: SCD's, Knee High KATRINA Hose VTE Pharm Prophylaxis ordered?: Yes 05/15/18 1114 <Electronically signed by Cornelia Salazar DPM> Date Cornelia Salazar DPM CC: SULMA Salazar; NATALIE Sánchez Signed BEDSIDE GLUCOSE Collected: 05/15/2018 Status: F Source: [place] 6:31 AM [facility] REPOSITORY TYPE CODE TESTS RESULT OUT OF REFERENCE UNITS RANGE LAB L501.080 70-110 mg/dL High BEDSIDE GLU 139 Result Comment: MANAGEMENT OF PATIENT CARE PER NURSING PROTOCOL Performed By: #### L501.080 #### [facility] Point of Care [address] [place] [address] BEDSIDE GLUCOSE Collected: 05/14/2018 Status: F Source: [place] 9:28 PM [facility] REPOSITORY TYPE CODE TESTS RESULT OUT OF REFERENCE UNITS RANGE LAB L501.080 70-110 mg/dL High BEDSIDE GLU 135 Result Comment: MANAGEMENT OF PATIENT CARE PER NURSING PROTOCOL Performed By: #### L501.080 #### [facility] Point of Care [address] [place] [address] BEDSIDE GLUCOSE Collected: 05/14/2018 Status: F Source: [place] 5:10 PM [facility] REPOSITORY TYPE CODE TESTS RESULT OUT OF REFERENCE UNITS RANGE LAB L501.080 70-110 mg/dL High BEDSIDE GLU 139 Result Comment: MANAGEMENT OF PATIENT CARE PER NURSING PROTOCOL Performed By: #### L501.080 #### [facility] Point of Care [address] [place] [address] HISTORY AND PHYSICAL Observed: 05/14/2018 Status: F Source: [place] EXAM 4:46 PM [facility] REPOSITORY [facility] Medical Records Department [address] [place] [address] History and Physical 05/14/18 1339 MR#: [id number] Acct: [id number] Name: LEVAR LEÓN Rep #: [id number] : 1940 77 From: Robert Urbano MD PCP: Eduard Sánchez, [employer] DEVELOPER-C Status: ADM IN Location: [place] [address] History of Present Illness Date of Admission: 05/13/18 Chief Complaint: Debility, right ankle pain Mr. León is a 77-year-old handed white male who is previously healthy, who tripped causing a Vespa scooter to fall on his ankle approximately 6 weeks ago. For several weeks he delayed evaluation finally because of pain he underwent evaluation and was placed in a boot and a wheeled walker. It was followed as an outpatient but shown to be nonhealing therefore yesterday he underwent open reduction internal fixation performed by Dr. Cornelia chapin here at [facility] without complication. The patient says he did not sleep very well last night but this was due to positioning which she says was corrected. He has no other complaints, pain is controlled, no GI or complaints. He does have a history of diabetes hypertension and coronary artery disease status post stent in 2014 as well as a history of hypothyroidism. 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 His adult children live at home with him. Past Medical History Allergies No Known Allergies Allergy (Verified 11/22/14 21:08) Home Medications: Ambulatory Orders Medication Instructions Recorded Aspirin [Aspirin, Baby] 81 mg PO DAILY@0800 05/12/18 Carvedilol [Coreg] 6.25 mg PO BID 05/12/18 Smoking Status: Never smoker Review of Systems Constitutional: Denies: Chills, Fever, Weight Change HEENT: Denies: Head Aches, Sinus Congestion, Sinus Drainage Cardiovascular: Denies: Chest Pain, Palpitations Respiratory: Denies: Cough, Shortness of breath at rest, Sputum production Gastrointestinal: Denies: Abdominal Pain, Nausea, Vomiting Genitourinary: Denies: Dysuria Musculoskeletal: Reports: Joint Pain, Joint Tenderness Skin: Denies: Rash, Wounds Neurological: Denies: Numbness, Tingling, Focal weakness Psychiatric: Denies: Anxiety, Depression, Homicidal Ideations, Suicidal Ideations Hematologic/ Lymphatic: Denies: Easy Bruising, Easy Bleeding VTE Information - Inpt Only VTE Present on Admission: Yes VTE Pharm Prophylaxis ordered?: Yes - Physical Exam General: Alert, Oriented x3, Cooperative, No apparent distress HEENT: PERRLA, EOMI Extremities: No Calf Tenderness Musculoskeletal: No Tenderness to Palpation of Joints or Extremities Neurological: Cranial nerves II-XII grossly intact Psych/Mental Status: Normal Affect Vital Signs Temp Pulse Resp BP Pulse Ox 37.2 C 95 16 154/78 H 95 05/14/18 09:56 05/14/18 09:56 05/14/18 09:56 05/14/18 09:56 05/14/18 09:56 Oxygen Flow Rate (L/min) 3 Oxygen Delivery Method Room Air Weight: 76 kg Body Mass Index (BMI) 25.5 Finger Stick Blood Glucose 132 Intake and Output for Last 24 Hours Intake Total 200 / 200 240 / 240 Balance 200 / 200 240 / 240 Laboratory Tests Past 24 Hrs WBC 10.8 RBC 4.50 L Hgb 13.6 Hct 39.7 L MCV 88.2 POC Glucose POC Glucose 184 H 155 H 151 H POC Glucose 140 H Current Medications Generic Name Dose Route Start Last Admin Trade Name Freq PRN Reason Stop Dose Admin Assessment/Plan Debility status post right ankle fracture status post open reduction internal fixation performed here at [facility] 05/13/18. Complicated by diabetes, hypertension and coronary artery disease Plan: Physical therapy for gait and balance Occupational Therapy for ADLs Bowel protocol PRN analgesics Continue antihypertensives VT prophylaxis 05/14/18 1646 <Electronically signed by Robert Urbano MD> Date Robert Urbano MD [facility] Signature: Date (if applicable) CC: [employer] DEVELOPER-C Eduard Sánchez; Robert Urbano MD Signed BEDSIDE GLUCOSE Collected: 05/14/2018 Status: F Source: [place] 11:59 AM [facility] REPOSITORY TYPE CODE TESTS RESULT OUT OF REFERENCE UNITS RANGE LAB L501.080 70-110 mg/dL High BEDSIDE GLU 184 Result Comment: MANAGEMENT OF PATIENT CARE PER NURSING PROTOCOL Performed By: #### L501.080 #### [facility] Point of Care [address] [place], [place] [address] BEDSIDE GLUCOSE Collected: 05/14/2018 Status: F Source: [place] 7:06 AM [facility] REPOSITORY TYPE CODE TESTS RESULT OUT OF REFERENCE UNITS RANGE LAB L501.080 70-110 mg/dL High BEDSIDE GLU 155 Result Comment: MANAGEMENT OF PATIENT CARE PER NURSING PROTOCOL Performed By: #### L501.080 #### [facility] Point of Care [address] [facility] [place] [address] CBC W/DIFF, AUTOMATED Collected: 05/14/2018 Status: F Source: [place] 5:40 AM [facility] REPOSITORY TYPE CODE TESTS RESULT OUT OF RANGE REFERENCE UNITS LAB L100.1000 4.4-11.0 K/mm3 Normal WBC 10.8 LAB L100.1200 4.6-6.2 M/mm3 Low RBC 4.50 LAB L100.1300 13.0-16.5 g/dl Normal HGB 13.6 LAB L100.1400 40-54 % Low HCT 39.7 LAB L100.1500 80-94 fL Normal MCV 88.2 LAB L100.1600 27.0-32.0 pg Normal MCH 30.2 LAB L100.1700 32-36 g/gl Normal MCHC 34.3 LAB L100.1810 11.6-14.6 % Normal RDW CV 12.0 LAB L100.1820 35.1-43.9 fl Normal RDW SD 38.4 LAB L100.1900 150-450 K/mm3 Normal PLT 186 LAB L100.2000 6.2-12.0 fl Normal MPV 10.8 LAB L100.2100 47-70 % High NEUT% 83.5 LAB L100.2200 19-41 % Low LY% 7.7 LAB L100.2300 0-10 % Normal MONO% 8.3 LAB L100.2400 0-5 % Normal EO% 0.2 LAB L100.2500 0-1 % Normal BASO% 0.1 LAB L100.2550 0.0-0.9 % Normal IM GRAN % 0.200 Result Comment: IG% - Immature Granulocytes (promyelocytes, myelocytes and metamyelocytes) > 1% indicates that a LEFT SHIFT is Present. LAB L100.2620 2.0-7.7 X10 3/uL High Absolute Neut 9.0 LAB L100.2720 0.83-4.51 X10 3/ul Normal Absolute Lymph 0.83 Performed By: #### L100.0100 #### [facility] [address] [place], [address] COMPREHENSIVE METABOLIC Collected: 05/14/2018 Status: F Source: [facility] 5:40 AM [facility] REPOSITORY TYPE CODE TESTS RESULT OUT OF RANGE REFERENCE UNITS LAB L501.0100 74-106 mg/dL High GLU 175 Result Comment: Fasting Glucose result greater than or equal to 126 mg/dL suggests DIABETES MELLITUS per A.D.A. criteria. Please note revised GLUCOSE reference range effective 2017. LAB L501.1000 7-18 mg/dL Normal BUN 13 LAB L501.1100 0.70-1.30 mg/dL Normal CREAT,SERUM 0.77 Result Comment: The validity of the calculated GFR AND GFRAA in patients over 70 years has not been determined. Clinical correlation is essential. LAB L501.1110 >60 mL/min Normal EST GFR 104 Result Comment: Non- GFR Calc LAB L501.1115 >60 mL/min Normal EST GFR - AA 126 Result Comment: GFR Calc LAB L501.1255 ml/min Normal Estimated CRCL 59.85 LAB L501.1300 10-20 RATIO Normal BUN/CRE 16.9 LAB L501.1500 6.4-8. g/dL Low 2 T PROT 5.9 LAB L501.1800 3.2-5. g/dL Low 0 ALB 2.9 LAB L501.1950 2.2-4. g/dL Normal 2 GLOB 3.0 LAB L501.2000 0.9-2. RATIO Normal 4 A/G 1.0 LAB L501.2200 8.5-10 mg/dL Low .1 CA 8.2 LAB L501.4100 15-37 U/L Normal AST 17 LAB L501.4305 45-117 U/L Normal ALK P 69 LAB L501.4405 16-61 U/L Normal ALT 17 LAB L501.4600 0.20-1 mg/dL Normal .00 T BILI 0.60 LAB L501.5300 136-14 mmol/L Normal 5 NA 136 LAB L501.5600 3.5-5. mmol/L Normal 1 K 4.1 LAB L501.5900 98-107 mmol/L Normal CL 101 LAB L501.6100 21.0-3 mmol/L Normal 2.0 CO2 25.0 LAB L501.6200 5-15 Normal GAP 10 Performed By: #### L500.4050 #### [facility] [address] [facility] [address] BEDSIDE GLUCOSE Collected: 05/13/2018 Status: F Source: [facility] 9:23 PM [facility] REPOSITORY TYPE CODE TESTS RESULT OUT OF REFERENCE UNITS RANGE LAB L501.080 70-110 mg/dL High BEDSIDE GLU 151 Result Comment: MANAGEMENT OF PATIENT CARE PER NURSING PROTOCOL Performed By: #### L501.080 #### [facility] Point of Care [address] [place] [address] BEDSIDE GLUCOSE Collected: 05/13/2018 Status: F Source: [facility] 5:38 PM [facility] REPOSITORY TYPE CODE TESTS RESULT OUT OF REFERENCE UNITS RANGE LAB L501.080 70-110 mg/dL High BEDSIDE GLU 140 Result Comment: MANAGEMENT OF PATIENT CARE PER NURSING PROTOCOL Performed By: #### L501.080 #### [facility] Point of Care [address] [place] [address] BEDSIDE GLUCOSE Collected: 05/13/2018 Status: F Source: [facility] 4:27 PM [facility] REPOSITORY TYPE CODE TESTS RESULT OUT OF REFERENCE UNITS RANGE LAB L501.080 70-110 mg/dL High BEDSIDE GLU 132 Result Comment: MANAGEMENT OF PATIENT CARE PER NURSING PROTOCOL Performed By: #### L501.080 #### [facility] Point of Care [address] [place] [address] ANKLE MIN 3 VIEWS Observed: 05/13/2018 Status: F Source: [place] 4:18 PM [facility] REPOSITORY [facility] Imaging Services [address] [place] [address] Ankle min 3 Views MR#: [id number] Acct: [id number] Name: LEVAR LEÓN Rep #: [id number] : 1940 M 77 From: Deepak Martinez DO PCP: NATALIE Chatman Status: REG SDC Study: Ankle min 3 Views Date of Exam: 05/13/18 Exam# [id number] Ordering Dr: Cornelia Salazar DPM STUDY: X-RAY - RIGHT ANKLE REASON FOR EXAM: Male, 77 years old. Postop. TECHNIQUE: 4 view(s) of the ankle. COMPARISON: Right ankle, May 13, 2018. FINDINGS: Normal visualized distal tibia. Again seen is metallic plate and screws along the lateral aspect of the fibula. The fracture is in normal alignment. Normal tibiotalar articulation and ankle mortise. Normal visualized talus and calcaneus. The visualized subtalar, talonavicular, calcaneocuboid and tarsal articulations are normal. Minimal soft tissue swelling. A semiopaque splint is seen along the posterior leg and plantar aspect of the foot. RAD/Ankle min 3 Views IMPRESSION: Status post internal fixation of a distal fibular fracture. Electronically Signed: Deepak Martinez DO at 16:48 EST Tel [phone], Service support , CC: SULMA Salazar; [employer] DEVELOPER-C Eduard Sánchez Telegraphic Typewriter Installer: Signed BEDSIDE GLUCOSE Collected: 05/13/2018 Status: F Source: [place] 12:29 PM [facility] REPOSITORY TYPE CODE TESTS RESULT OUT OF REFERENCE UNITS RANGE LAB L501.080 70-110 mg/dL High BEDSIDE GLU 133 Result Comment: MANAGEMENT OF PATIENT CARE PER NURSING PROTOCOL Performed By: Emmanuel### L501.080 #### [facility] Point of Care [address] [place], [place] [address] CBC-COMPLETE BLOOD CNT Collected: 05/13/2018 Status: F Source: [place] NO DIFF 12:02 PM [facility] REPOSITORY Order Comment: Reason for Laboratory Test preop TYPE CODE TESTS RESULT OUT OF RANGE REFERENCE UNITS LAB L100.1000 4.4-11.0 K/mm3 Normal WBC 7.6 LAB L100.1200 4.6-6.2 M/mm3 Normal RBC 4.74 LAB L100.1300 13.0-16.5 g/dl Normal HGB 14.3 LAB L100.1400 40-54 % Normal HCT 42.6 LAB L100.1500 80-94 fL Normal MCV 89.9 LAB L100.1600 27.0-32.0 pg Normal MCH 30.2 LAB L100.1700 32-36 g/gl Normal MCHC 33.6 LAB L100.1810 11.6-14.6 % Normal RDW CV 12.3 LAB L100.1820 35.1-43.9 fl Normal RDW SD 40.0 LAB L100.1900 150-450 K/mm3 Normal PLT 199 LAB L100.2000 6.2-12.0 fl Normal MPV 10.6 Performed By: #### L100.0500 #### [facility] [address] [place], [address] BASIC METABOLIC Collected: 05/13/2018 Status: F Source: [place] PROFILE (BMP) 12:02 PM [facility] REPOSITORY Order Comment: Reason for Laboratory Test preop TYPE CODE TESTS RESULT OUT OF RANGE REFERENCE UNITS LAB L501.0100 74-106 mg/dL High GLU 131 Result Comment: Fasting Glucose result greater than or equal to 126 mg/dL suggests DIABETES MELLITUS per A.D.A. criteria. Please note revised GLUCOSE reference range effective 2017. LAB L501.1000 7-18 mg/dL Normal BUN 16 LAB L501.1100 0.70-1.30 mg/dL Normal CREAT,SERUM 0.96 Result Comment: The validity of the calculated GFR AND GFRAA in patients over 70 years has not been determined. Clinical correlation is essential. LAB L501.1110 >60 mL/min Normal EST GFR 80 Result Comment: Non- GFR Calc LAB L501.1115 >60 mL/min Normal EST GFR - AA 97 Result Comment: GFR Calc LAB L501.1255 ml/min Normal Estimated CRCL 60.25 LAB L501.1300 10-20 RATIO Normal BUN/CRE 16.6 LAB L501.2200 8.5-10 mg/dL Normal .1 CA 8.5 LAB L501.5300 136-14 mmol/L Normal 5 NA 141 LAB L501.5600 3.5-5. mmol/L Normal 1 K 4.3 LAB L501.5900 98-107 mmol/L Normal CL 105 LAB L501.6100 21.0-3 mmol/L Normal 2.0 CO2 28.0 LAB L501.6200 5-15 Normal GAP 8 Performed By: #### L500.2500, L501.9520 #### [facility] [address] [place], [address] THYROID STIM HORMONE Collected: 05/13/2018 Status: F Source: [facility] ([facility]) 12:02 PM [facility] REPOSITORY Order Comment: Reason for Laboratory Test preop TYPE CODE TESTS RESULT OUT OF RANGE REFERENCE UNITS LAB L501.9520 0.358-3.74 uIU/mL Normal TSH 1.92 Performed By: #### L500.2500, L501.9520 #### [facility] [address] [place], [place], [address] ANKLE 2 VIEWS Observed: 05/13/2018 Status: F Source: [place] 12:07 AM [facility] REPOSITORY [facility] Imaging Services [address] [place] [address] Ankle 2 Views MR#: [id number] Acct: [id number] Name: LEVAR LEÓN Rep #: [id number] : 1940 M 77 From: Eduard Becker MD PCP: Eduard Sánchez, [employer] O[employer] DEVELOPERCabreraC Status: REG [facility] Study: Ankle 2 Views Date of Exam: 05/13/18 Exam# [id number] Ordering Dr: Cornelia Salazar DPM STUDY: X-RAY - RIGHT ANKLE REASON FOR EXAM: Male, 77 years old. ORIF right ankle TECHNIQUE: 3 view(s) of the ankle in multiple obliquities obtained intraoperatively are presented for interpretation. COMPARISON: None. FINDINGS: Plate and screw fixation of the distal fibular fracture in excellent anatomic alignment. Surgical construct intact. Normal distal tibia. Normal ankle joint. RAD/Ankle 2 Views IMPRESSION: Excellent anatomic alignment. Correlate with operative report. Electronically Signed: Eduard Becker, at 15:35 EST Tel , Service support , CC: SULMA Salazar; [employer] DEVELOPER-C Eduard Sánchez Telegraphic Typewriter Installer: Signed XR ANKLE MINIMUM 3 Observed: 03/26/2018 Status: F Source: [facility] VIEWS RIGHT 5:36 PM [facility] REPOSIT[facility] ORIGINAL XR ANKLE MINIMUM 3 VIEWS RIGHT CLINICAL STATEMENT: pain. COMPARISON: None FINDINGS: AP, lateral, and oblique views of the RIGHT ankle demonstrate an obliquely oriented fracture through the lateral malleolus with extension to the articular surface and widening of the lateral c lear space. Cortical offset measures approximately 2 mm. Talar dome is intact. Imaged portions of the hindfoot and midfoot show no acute abnormality. There is calcaneal enthesopathy at the origin of the plantar fascia and insertion of the Achilles tendon. Moderate circumferential soft tissue swelling is seen at the ankle. IMPRESSION: Obliquely oriented fracture of the lateral malleolus, compatible with Mckenzie B fracture. I have personally reviewed the images of this examination and agree with the resident's findings and interpretation. Interpreted By: Nahun Paz DO Preliminary Report By: Stephen Grant MD Electronically Signed By: Nahun Paz DO Dictated Date: 03/26/2018 5:49:25 PM Prelim Date: 03/26/2018 5:50:53 PM Sign Date: 03/26/2018 6:08:22 PM TSH Collected: 02/20/2018 Status: F Source: [facility] 8:50 AM [facility] REPOSITORY TYPE CODE TESTS RESULT OUT OF RANGE REFERENCE UNITS LAB TSH(LOINC) 0.36-3.74 mcIU/mL TSH 1.77 Performed By: #### TSH #### [place] [id number] [place] [address] CBC Collected: 11/21/2017 Status: F Source: [facility] 7:27 AM [facility] REPOSITORY TYPE CODE TESTS RESULT OUT OF REFERENCE UNITS RANGE LAB WBC(LOINC) 4.60-10.80 10 3/mcL WBC 5.60 LAB RBCCT(LOINC 4.04-6.13 10 6/mcL ) RBC 4.59 LAB HGB(LOINC) 14.0-18.0 G/dL Low Hgb 13.9 LAB HCT(LOINC) 42.0-52.0 % Low Hct 40.8 LAB MCV(LOINC) 80.0-94.0 fL MCV 89.0 LAB MCH(LOINC) 27.0-31.2 pg MCH 30.3 LAB MCHC(LOINC) 31.8-35.4 G/dL MCHC 34.1 LAB RDW(LOINC) 11.5-14.5 % RDW 13.5 LAB PLT(LOINC) 130-400 10 3/mcL Platelet 181 LAB MPV(LOINC) 7.4-10.4 fL MPV 9.7 Performed By: #### CBC, ADIFF, ANEU, FT4, LIPID, CMP, GFR, TSH #### [address] [address] .AUTO DIFF Collected: 11/21/2017 Status: F Source: [facility] 7:27 AM [facility] REPOSITORY TYPE CODE TESTS RESULT OUT OF REFERENCE UNITS RANGE LAB SCOTT(LOINC) 37.0-80.0 % Neutrophil % 56.2 LAB LYM(LOINC) 10.0-50.0 % Lymphocyte % 28.4 LAB MON(LOINC) 1.7-13.0 % Monocyte % 8.2 LAB EO(LOINC) 0.0-7.0 % Eosinophil % 6.4 LAB BAS(LOINC) 0.0-2.5 % Basophil % 0.8 LAB ABLYM(LOIN 0.77-3.85 10 3/mcL C) Lymphocyte, 1.60 Absolute LAB DOREEN(LOINC 0.15-1.00 10 3/mcL ) Monocyte, 0.50 Absolute LAB AEOS(LOINC 0.00-0.40 10 3/mcL ) Eosinophil, 0.40 Absolute LAB ABAS(LOINC 0.00-0.19 10 3/mcL ) Basophil, 0.00 Absolute Performed By: #### CBC, ADIFF, ANEU, FT4, LIPID, CMP, GFR, TSH #### [place] [address] [place], [place] [address] .NEUABS Collected: 11/21/2017 Status: F Source: [facility] 7:27 AM [facility] REPOSITORY TYPE CODE TESTS RESULT OUT OF REFERENCE UNITS RANGE LAB ANEU(LOINC) 2.85-6.16 10 3/mcL Neutrophil, 3.10 Absolute Performed By: #### CBC, ADIFF, ANEU, FT4, LIPID, CMP, GFR, TSH #### [place] [address] [place], [place] [address] FT4 Collected: 11/21/2017 Status: F Source: [facility] 7:27 [facility] REPOSITORY TYPE CODE TESTS RESULT OUT OF RANGE REFERENCE UNITS LAB FT4(LOINC) 0.6-1.7 ng/mL Free T4 1.5 Performed By: #### CBC, ADIFF, ANEU, FT4, LIPID, CMP, GFR, TSH #### [place] [id number] [place], [place] [address] LIPID Collected: 11/21/2017 Status: F Source: [facility] 7:27 AM [facility] REPOSITORY TYPE CODE TESTS RESULT OUT OF REFERENCE UNITS RANGE LAB CHOL(LOINC 131-200 mg/dL ) Cholesterol 141 Result Comment: Cholesterol Reference Interval: Less than 200 Desirable 200-239 Borderline high risk 240 and above High risk LAB TRIG(LOINC) 40-150 mg/dL Triglycerides 61 Result Comment: Triglyceride Reference Interval: Less than 150 Normal 150-199 Borderline high risk 200-499 High risk 500 or higher Very high risk LAB HD(LOINC) 35-90 mg/dL HDL Cholesterol 58 Result Comment: HDL Reference Interval: Less than 40 Low - high risk 60 or above Optimal/lowers risk LAB LDL(LOINC) 0-130 mg/dL LDL Cholesterol 71 Result Comment: LDL is a calculated result and requires a 12-hr fast. LDL Reference Interval: Less than 100 Optimal 100-129 Near or above optimal 130-159 Borderline high risk 160-189 High risk 190 and above Very high risk Performed By: #### CBC, ADIFF, ANEU, FT4, LIPID, CMP, GFR, TSH #### Adonis [address] [place], [place] [address] CMP Collected: 11/21/2017 Status: F Source: miiCard 7:27 AM [facility] REPOSITORY TYPE CODE TESTS RESULT OUT OF REFERENCE UNITS RANGE LAB GLU(LOINC) 83-110 mg/dL Glucose High Level 145 LAB NA(LOINC) 136-146 mEq/L Sodium Level 139 LAB K(LOINC) 3.5-5.1 mEq/L Potassium Level 4.8 LAB CL(LOINC) 98-107 mEq/L Chloride 106 LAB CO2(LOINC) 23-31 mEq/L CO2 28 LAB EBAL(LOINC mEq/L ) Electrolyte Balance 5.0 LAB BUN(LOINC) 7.0-18.0 mg/dL BUN 13.6 LAB CRE(LOINC) 0.6-1.2 mg/dL Creatinine Lvl (s) 0.9 LAB BC(LOINC) 7-27 ratio BUN/Creatinine 15 Ratio LAB CA(LOINC) 8.4-10.2 mg/dL Calcium Lvl 8.7 LAB PROT(LOINC 6.0-8.3 G/dL ) Low Total Protein 5.8 LAB ALB(LOINC) 3.4-4.8 G/dL Albumin Level 3.7 LAB GLB(LOINC) G/dL Globulin 2.1 LAB AG(LOINC) 1.1-2.5 ratio A/G Ratio 1.8 LAB BILT(LOINC 0.2-1.0 mg/dL ) Bili Total 0.4 LAB AP(LOINC) 40-135 IU/L Alk Phos 63 LAB AST(LOINC) 10-40 IU/L AST/SGOT 17 LAB ALT(LOINC) 10-35 IU/L ALT/SGPT 11 Performed By: #### CBC, ADIFF, ANEU, FT4, LIPID, CMP, GFR, TSH #### Adonis [address] [place], [place] [address] .GFR Collected: 11/21/2017 Status: F Source: miiCard 7:27 AM [facility] REPOSITORY TYPE CODE TESTS RESULT OUT OF REFERENCE UNITS RANGE LAB GFRAA(LOINC ml/min/1.73 ) sqm GFR 101 Bruneian Result Comment: GFR Population mean for , Non- Americans Ages 20-29 = 116 mL/min/1.73 sq.m. Ages 30-39 = 107 mL/min/1.73 sq.m. Ages 40-49 = 99 mL/min/1.73 sq.m. Ages 50-59 = 93 mL/min/1.73 sq.m. Ages 60-69 = 85 mL/min/1.73 sq.m. Ages 70+ = 75 mL/min/1.73 sq.m. Chronic Kidney Disease: Less than 60 mL/min/1.73 square meters End Stage Renal Disease: Less than 15 mL/min/1.73 square meters LAB GFRNO(LOINC) ml/min/1.73sqm GFR Non- >60 Result Comment: GFR Population mean for , Non- Americans Ages 20-29 = 116 mL/min/1.73 sq.m. Ages 30-39 = 107 mL/min/1.73 sq.m. Ages 40-49 = 99 mL/min/1.73 sq.m. Ages 50-59 = 93 mL/min/1.73 sq.m. Ages 60-69 = 85 mL/min/1.73 sq.m. Ages 70+ = 75 mL/min/1.73 sq.m. Chronic Kidney Disease: Less than 60 mL/min/1.73 square meters End Stage Renal Disease: Less than 15 mL/min/1.73 square meters Performed By: #### CBC, ADIFF, ANEU, FT4, LIPID, CMP, GFR, TSH #### [address]is [address] [place], [place] [address] TSH Collected: 11/21/2017 Status: F Source: [facility] 7:27 AM [facility] REPOSITORY TYPE CODE TESTS RESULT OUT OF RANGE REFERENCE UNITS LAB TSH(LOINC) 0.27-4.20 mcIU/mL High TSH 4.36 Result Comment: Above normal(expected)range Performed By: #### CBC, ADIFF, ANEU, FT4, LIPID, CMP, GFR, TSH #### Adonis [address] [address] ALLERGIES ALLERGIES DATE TYPE / CODE NAME / CODE REACTION SEVERITY SOURCE 11/22/2014 Drug No Known Unknown [facility] Allergy/4160 Allergies/F00 Hospital 34911(SNOMED 1308685(RXNOR Repository CT) M) ENCOUNTERS ENCOUNTERS ADMIT/DISCHARGE ACCOUNT NUMBER ADMITTING ENCOUNTER LOCATION SOURCE CLASS 05/28/2018/06/11/20 [id number] Ricci Beckford Inpatient Sulaiman Sulaiman 18 Chi Encounter [facility] ding:TCURoom Repository : [id number]: 1 05/13/2018 [id number] Ambulatory BMSBuilding: Sulaiman [facility] Repository 05/13/2018/05/28/20 [id number] Yolie, Inpatient Sulaiman Sulaiman 18 Robert Encounter [facility] ding:RURoom: Repository BY083Xyn: 1 05/13/2018 [id number] Yolie Ambulatory BMSBuilding: [facility] Repository 05/13/2018 [id number] Yolie Ambulatory BMSBuilding: [facility]an [facility] Repository 05/13/2018 [id number] Yolie Ambulatory BMSBuilding: [facility]an [facility] Repository 05/13/2018 [id number] Yolie Ambulatory BMSBuilding: [place] [facility] Repository 05/13/2018 [id number] Yolie Ambulatory BMSBuilding: [place] [facility] Repository 05/13/2018/05/13/20 [id number] Ambulatory [place] [address] [place] [address] ding:SDCRoom Repository : AC15 03/26/2018/03/26/20 [id number] Emergency BBuilding:ER [address] Repository 02/20/2018/02/25/20 [id number] Ambulatory [address] ding:Appography [facility] [place] Repository 11/21/2017/11/26/19 [id number] Ambulatory [address] ding:Appography [facility] Repository PAYERS PAYERS ENCOUNTER GUARANTOR PAYER SUBSCRIBER SOURCE 05/28/2018 LEVAR Hilario [id number] Insurance:MEDICARE MISKIMENDOB: Community [address] PART A [facility] [id number] Number: Repository [address]Vxd: 330 [id number] [phone] () Date:2018-05-28 05/28/2018 Secondary TIMOTHY [place] Insurance:PHYSICIAN MISKIMENDOB: Community MUTUAL INS COPolicy [id number] Hospital Number: Repository [id number] Date:0532-57-47TS [address] [place] [address]AN: 05/28/2018 Tertiary NOT GIVENUNK Sulaiman Insurance:SELF PAY [facility] Number: Effective Repository Date:2018-05-28 05/13/2018 TIMOTHY Primary TIMOTHY [place] [id number] Insurance:MEDICARE MISKIMENDOB: Community [address] PART A [facility] [id number] [place] Number: Repository [id number]: 330 [id number] [phone] () Date:2018-05-13 05/13/2018 Secondary TIMOTHY [place] Insurance:PHYSICIAN MISKIMENDOB: Community MUTUAL INS COPolicy [id number] Hospital Number: Repository [id number] Date:2717-30-05LY [address] [address]UT: 05/13/2018 Tertiary NOT GIVENUNK Sulaiman Insurance:SELF PAY [facility] Hospital Number: Effective Repository Date:2018-05-13 05/13/2018 TIMOTHY Primary TIMOTHY [place] [id number] Insurance:MEDICARE MISKIMENDOB: Community [address] PART A [facility] [id number] Number: Repository [address]Qgt: 330 [id number] [phone] () Date:2018-05-13 05/13/2018 Secondary TIMOTHY [place] Insurance:PHYSICIAN MISKIMENDOB: Community MUTUAL INS COPolicy [id number] Hospital Number: Repository [id number] Date:8537-31-57AS [address] [address]UO: 05/13/2018 Tertiary NOT GIVENUNK [place] Insurance:SELF PAY Community [facility] Hospital Number: Effective Repository Date:2018-05-13 05/13/2018 TIMOTHY Primary LEVAR Hilario [id number] Insurance:MEDICARE MISKIMENDOB: Community [address] PART A olic [id number] Number: Repository [address]Anu: 330 [id number] [phone] (HP) Date:2018-05-13 05/13/2018 Secondary TIMOTHY Sulaiman Insurance:PHYSICIAN MISKIMENDOB: Community MUTUAL INS COPolicy [id number] Hospital Number: Repository [id number] Date:7021-35-43VM [address] [address]UU: 05/13/2018 Tertiary NOT GIVENUNK [place] Insurance:SELF PAY [facility] Hospital Number: Effective Repository Date:2018-05-13 05/13/2018 TIMOTHY Primary LEVAR [place] [id number] Insurance:MEDICARE MISKIMENDOB: Community [address] PART A [facility] [id number] [place] Number: Repository [id number]: 330 [id number] [phone] (HP) Date:2018-05-13 05/13/2018 Secondary TIMOTHY Sulaiman Insurance:PHYSICIAN MISKIMENDOB: Community MUTUAL INS COPolicy [id number] Hospital Number: Repository [id number] Date:2408-34-71SP [address] [address]IV: 05/13/2018 Tertiary NOT GIVENUNK Sulaiman Insurance:SELF PAY [facility] Hospital Number: Effective Repository Date:2018-05-13 05/13/2018 TIMOTHY Primary LEVAR [place] [id number] Insurance:MEDICARE MISKIMENDOB: Community [address] PART A [facility] [id number], [place] Number: Repository [address]Uci: 330 [id number] [phone] (HP) Date:2018-05-13 05/13/2018 Secondary TIMOTHY Sulaiman Insurance:PHYSICIAN MISKIMENDOB: Community MUTUAL INS COPolicy [id number] Hospital Number: Repository [id number] Date:3174-25-66HS [address] [address]GX: 05/13/2018 Tertiary NOT GIVENUNK Sulaiman Insurance:SELF PAY [facility] Hospital Number: Effective Repository Date:2018-05-13 05/13/2018 TIMOTHY Primary TIMOTHY Sulaiman [id number] Insurance:MEDICARE MISKIMENDOB: Community [address] PART A [facility] [id number] Number: Repository [address]Jps: 330 [id number] [phone] () Date:2018-05-13 05/13/2018 Secondary TIMOTHY Sulaiman Insurance:PHYSICIAN MISKIMENDOB: Community MUTUAL INS COPolicy [id number] Hospital Number: Repository [id number] Date:5444-95-19MR [address] [address]PT: 05/13/2018 Tertiary NOT GIVENUNK [place] Insurance:SELF PAY [facility] Hospital Number: Effective Repository Date:2018-05-13 05/13/2018 TIMOTHY Primary TIMOTHY [place] [id number] Insurance:MEDICARE MISKIMENDOB: Community [address] PART A [facility] [id number] Number: Repository [address]Byv: 330 [id number] [phone] () Date:2018-05-13 05/13/2018 Secondary TIMOTHY Sulaiman Insurance:PHYSICIAN MISKIMENDOB: Community MUTUAL INS COPolicy [id number] Hospital Number: Repository [id number] Date:4868-93-60MS [address] [address]IV: 05/13/2018 Tertiary NOT GIVENUNK [place] Insurance:SELF PAY [facility] Hospital Number: Effective Repository Date:2018-05-13 05/13/2018 TIMOTHY Primary TIMOTHY [place] [id number] Insurance:MEDICARE MISKIMENDOB: Community [address] PART A BPolicy [id number], [place] Number: Repository [address]Nwp: 330 [id number] [phone] (HP) Date:2018-05-08 05/13/2018 Secondary TIMOTHY [place] Insurance:PHYSICIAN MISKIMENDOB: [facility] MUTUAL INS COPolicy [id number] Hospital Number: Repository [id number] Date:5693-22-09LM [address] [place] [address]NV: 05/13/2018 Tertiary NOT GIVENUNK [place] Insurance:SELF PAY [facility] Hospital Number: Effective Repository Date:2018-05-08 03/26/2018 TIMOTHY Primary LEVAR [facility] MISKIMENDOB: Insurance:MEDICARE MISKIMENDOB: Foundation [id number] [facility]: [id number] Repository [address] [id number] [address] [place], [place] Date:2018-03-26 [place], [place] [address]Iig: [phone] [id number] [address]Kvi: Name:[facility] [id number] ()Tel: (000) Administrators LLCPO () (WP) [address]Abytolwis, 000-0000 (WP) [place] [address]KW: 03/26/2018 Secondary [facility]YSICIANS MISKIMENDOB: [facility] Number: [id number] Repository [id number] [address] Date:2018-03-26 [place] 1020-69-45Hwoi [address]Ojl: (330) Name:[facility] [phone] [place] [address] [place] ()Tel: [phone]: (WP) [phone] 02/20/2018 TIMOTHY Primary [facility] MISKIMENDOB: Insurance:MEDICARE MISKIMENDOB: Foundation PART BPolicy Number: [id number] Repository [address] [id number] [address] [facility] [place] Date:2018-02-20 - [place], [place] [address]Zie: 330 [id number] 376[address]Pfa: Name:[place] [address] ()Tel: (000) Administrators LLCPO (HP) (WP) [address] [address]Qfhxgyosw, 000-0000 (WP) [place] [address]NJ: 02/20/2018 Secondary [facility] Insurance:PHYSICIANS [facility]IMENDOB[facility]: [id number] Repository [id number] [address] Date:2018-02-20 [place] [id number] [address]Fkp: (330) Name:[facility] [id number] [address] [place] [address] [place] ()Tel: (000) [phone]: (WP) [phone] 11/21/2017 [facility] MISKIMENDOB: Insurance:MEDICARE MISKIMENDOB: [facility] PART BPolicy Number: [id number] Repository [address] [id number] [address] [facility], [place] Date:2017-11-21 - [place], [place] [address]Rbl: ([id number] 370[address]Gbz: Name:[facility] 698[facility] ()Tel: (000) Administrators LLCPO (HP) (WP) [address] [address]Kzszghsvu, 000-0000 (WP) [place] [address]EF: 11/21/2017 Secondary [facility] Insurance:PHYSICIANS MISKIMENDOB: [facility] MUTUALPolicy Number: [id number] Repository [id number] [address] Date:2017-11-21 - [place] [id number] [address]Hmb: ([phone]) Name:[facility] [phone] STEVE Lazo ()Tel: [phone]: (wp) [phone]
== END 2018-06-11 12:10 | disposition home health service (06) | DRG 561 ==
PROVIDERS: Admitting Provider Family Medicine Geriatric Medicine; Family Provider Nurse Practitioner Family; PCP Nurse Practitioner Family; Referring Provider Family Medicine Geriatric Medicine; Visit Provider Family Medicine Geriatric Medicine
DX: S82.891D Other fracture of right lower leg, subsequent encounter for closed fracture with routine healing (principal); X58.XXXD Exposure to other specified factors, subsequent encounter; I25.10 Atherosclerotic heart disease of native coronary artery without angina pectoris; E03.9 Hypothyroidism, unspecified; E11.9 Type 2 diabetes mellitus without complications; E78.5 Hyperlipidemia, unspecified; N40.0 Benign prostatic hyperplasia without lower urinary tract symptoms; E53.8 Deficiency of other specified B group vitamins; Z95.5 Presence of coronary angioplasty implant and graft
CPT/HCPCS: 36415; 80048; 85025; 97110; 97116; 97163; 97165; 97530; 97535; 97802

== ENCOUNTER → 2018-09-24 11:35 | Outpatient (CLI) | payer MEDICARE, OTHER, SELFPAY | PROVIDERS: Family Provider Nurse Practitioner Family; PCP Nurse Practitioner Family; Referring Provider Nurse Practitioner Adult Health; Visit Provider Nurse Practitioner Adult Health | DX: R30.0 Dysuria (principal) | CPT/HCPCS: 87077; 87086; 87088; 87186 ==

== ENCOUNTER 2025-01-21 11:57 | Outpatient (CLI) | payer MEDICARE, OTHER, SELFPAY ==
[2025-01-21 13:25] LABS: LDH 204 U/L (87-241)
[2025-01-22 04:07] LABS: HCG BETA-SUBUNIT QUANT. < 1 mIU/mL (0-3)
== END 2025-01-21 23:59 | disposition home or self-care (01) ==
LOC: LAB 11:59
PROVIDERS: PCP Nurse Practitioner Family; Referring Provider Nurse Practitioner; Visit Provider Nurse Practitioner
DX: R93.812 Abnormal radiologic findings on diagnostic imaging of left testicle (principal)
CPT/HCPCS: 36415; 82105; 83615; 84702

== ENCOUNTER 2025-02-08 15:22 | Outpatient (CLI) | payer MEDICARE, OTHER, SELFPAY ==
--- NOTE | 2025-02-05 07:30 | TEST_PTH ---
PATIENT: LEVAR LEÓN [facility][id number] AGE/SX: 84/M ROOM: RE02/08/[address]: Dr. Kee Brizuela MD : 1940 BED: DIS: 02/08/2025 SPEC #: [id number] RECD: 02/08/25 15:47 STATUS: DELMER RERick #: [id number] MICHELLE: 02/05/25 07:[address]: Kee Brizuela DEPT: SURGICAL PATHOLOGY RECD BY: John Dee ENTERED: 02/09/25 09:32 SP TYPE: TESTICLE OTHR DR: Eduard Sánchez, SYSTEMS INTEGRATION MANAGER-C Tissues: A - Testis, NOS Procedures: Special Stain Group I Surgery Specimen Level IV AFB Stain (control) GMS Stain (control) HEADER OPERATION: Left radical orchiectomy PRE-OP DIAGNOSIS: Left testicular mass TISSUE SUBMITTED: A- Left testicle MICROSCOPIC DIAGNOSIS A. Testicle, left, radical orchiectomy: - Widespread necrosis with large necrotizing granulomas and smaller foreign body granulomas. - No evidence of neoplasia observed in these sections - see note. - Special stains for microorganisms are pending and will be reported in an addendum. Note: Necrosis limits the assessment. The necrosis could be secondary to torsion or other clinical process. Clinical correlation is necessary. No pertinent history is found in the EMR. COMMENT Selected slides/images were reviewed in intradepartmental consultation by Dr Shannan Maciel ([facility] pathology division, [facility]). MICROSCOPIC DESCRIPTION Slides are reviewed. GROSS DESCRIPTION A. Received in formalin labeled with the patient's name and date of . Designated as left testicle is a 38.7 g radical orchiectomy comprised of a testicle measuring 4.8 x 4.3 x 2.7 cm and attached spermatic cord, 1.8 cm in length x 2.1 cm in diameter. The spermatic cord margin is shaved. There is a moderate amount of attached adipose tissue adjacent to the spermatic cord. The specimen is inked as follows:Spermatic cord: OrangeTunica vaginalis: Black The testicle is bivalved, revealing a 3.3 x 2.7 x 2.3 by cm hernadez-white to red variegated mass with dense surrounding fibrosis. The epididymis is not grossly appreciated. The mass is located 3.0 cm from the spermatic cord margin and appears to be confined to the testicle; however, the surrounding fibrosis makes it difficult to determine grossly if the mass has extended outside of the tunica albuginea. The mass grossly abuts the tunica vaginalis/albuginea with threadlike fibrosis spanning to the spermatic cord insertion. The uninvolved testicular parenchyma is hernadez-yellow and focally congested, with seminiferous tubules that string with ease. Registered Route Associate sections are submitted as follows:A1: Spermatic cord margin, shaved (orange)A2: Spermatic cord cross-sections (orange)A3: Mass to spermatic cord insertion, perpendicular (orange/black)A4: Mass (black)A5: Mass to surrounding soft tissue and possible epididymis (black)A6-A7: Mass (black)A8: Mass to normalA9: Congested parenchyma, no mass VT 02/09/2025 CPT:32500,65219s7 ADDENDUM ADDENDUM ADDENDUM ADDENDUM ADDENDUM ADDENDUM ADDENDUM ADDENDUM ADDENDUM ADDENDUM ADDENDUM ADDENDUM 02/24/2025 13:18 ADDENDUM 02/24/2025 13:18 ADDENDUM 02/24/2025 13:18 ADDENDUM 02/24/2025 13:18 ADDENDUM 02/24/2025 13:18 This addendum is to report the results of the AFB and GMS special stains: The GMS stain is negative for fungal organisms (A4). The AFB stain is negative for acid fast bacilli (A4). All matched controls reacted appropriately. These tests were developed and their performance characteristics determined by [facility]. They may not have been cleared or approved by the U.S. Food and Drug Administration. The FDA has determined that such clearance or approval is not necessary.? The above immunohistochemical?markers and/or special stains have been reviewed by the Pathologist.
== END 2025-02-08 23:59 | disposition home or self-care (01) ==
LOC: LABSPEC 15:36
PROVIDERS: PCP Nurse Practitioner Family; Referring Provider Urology; Visit Provider Urology
DX: C62.92 Malignant neoplasm of left testis, unspecified whether descended or undescended (principal)
CPT/HCPCS: 88305; 88309; 88312